=== PATIENT | male | born 1945 | race Caucasian/White ===

== ENCOUNTER 2019-05-15 13:12 | Inpatient (IN) | payer OTHER ==
[~2019-05-15] VITALS: Ht 198.1 cm; Wt 74.8 kg
[2019-05-15 13:17] VITALS: BP_SYST 185
--- NOTE | 2019-05-15 13:30 | NUR ---
Patient to ER bed 5 to gown for evaluation. Side rails up. Report given to Mehreen REAVES.
[2019-05-15] MEDS ORDERED: ONDANSETRON HCL 4 MG/2 ML VIAL IVP ONE (13:45)
--- NOTE | 2019-05-15 13:45 | NUR ---
pt arrives from home w/ c/o N/V/D x 3 days. Pt sated that he has been recovering from the flu. Pt is currently afebrile and is c/o generalized weakness. color television console monitor placed. Will continue to monitor.
--- NOTE | 2019-05-15 13:50 | NUR ---
ER at bedside examining patient.
--- NOTE | 2019-05-15 14:00 | NUR ---
# 20 gauge angiocath placed to RAC. Use of asceptic technique. Opsite placed over site. Blood return noted. Blood for lab drawn from site. Flushed with 10 cc of normal saline. No evidence of infiltration noted. Patient tolerated well.
[2019-05-15] MEDS ORDERED: PIPERACILLIN/TAZO 3.375 GM in NS 50 ML IV ONE (14:30)
[2019-05-15] MEDS ORDERED: AZITHROMYCIN 500 MG in NS 250 ML IV ONE (14:30)
[2019-05-15 14:31] LABS: EOSINOPHILS # (AUTO) 0.1 K/uL (0.0-0.4); LYMPHOCYTES # (AUTO) 0.7 K/uL (1.0-5.5); RED CELL DISTRIBUTION WIDTH 13.5 % (9.0-15.0); WHITE BLOOD COUNT (AUTO) 21.7 K/uL (4.8-10.8)
[2019-05-15 14:38] LABS: ANION GAP 10 (5-15); CALCIUM 8.6 mg/dL (8.4-11.0); CHLORIDE 101 mmol/L (98-107); CREATININE 2.34 mg/dL (0.55-1.30); GLUCOSE 323 mg/dL (70-99); POTASSIUM 3.3 mmol/L (3.5-5.1); SODIUM SERUM 134 mmol/L (136-145); UREA NITROGEN, BLOOD 44 mg/dL (8-21)
[2019-05-15 14:41] LABS: INR 1.1 (0.80-1.20); PROTHROMBIN TIME 10.7 SECS (9.5-12.5)
[2019-05-15] MEDS ORDERED: IPRATROPIUM/ALBUTEROL SULFATE 3 ML AMPUL.NEB (DUONEB) ONE (14:42)
[2019-05-15 14:44] LABS: ALANINE AMINOTRANSFERASE 52 U/L (12-78); ALBUMIN 2.8 g/dL (3.4-4.8); ASPARTATE AMINOTRANSFERASE 30 U/L (10-37); TOTAL BILIRUBIN 0.7 mg/dL (0.0-1.0)
[2019-05-15] MEDS ORDERED: IPRATROPIUM/ALBUTEROL SULFATE 3 ML AMPUL.NEB (DUONEB) INH ONE (14:45)
[2019-05-15 14:52] LABS: BASOPHILS # (AUTO) 0.1 K/uL (0.0-0.2); BASOPHILS % (AUTO) 0.4 % (0.0-2.0); EOSINOPHILS % (AUTO) 0.4 % (0.0-4.0); LYMPHOCYTES % (AUTO) 3.4 % (20.5-51.5); MEAN CORPUSCULAR HEMOGLOBIN 30 pg (27-31); MEAN CORPUSCULAR HGB CONC 34 % (32-36); MEAN CORPUSCULAR VOLUME 88 fL (79.0-98.0); MONOCYTES # (AUTO) 1.5 K/uL (0.0-1.0); MONOCYTES % (AUTO) 6.9 % (1.7-9.3); NEUTROPHILS # (AUTO) 19.3 K/uL (1.8-7.7); NEUTROPHILS % (AUTO) 88.9 % (40.0-70.0); PLATELET COUNT (AUTO) 160 K/uL (130-430); RED BLOOD CELL COUNT(AUTO) 5.34 MIL/uL (4.2-6.2)
[2019-05-15] MEDS ORDERED: ASPIRIN 81 MG TAB.CHEW PO ONE (15:00)
--- NOTE | 2019-05-15 15:00 | NUR ---
Medicated the pt w/ Zosyn and Zithromax per MD order.
[2019-05-15] MEDS ORDERED: PIPERACILLIN/TAZOBACTAM 3.375 GM/VIAL (ZOSYN) IV ONE (15:20)
[2019-05-15] MEDS ORDERED: AZITHROMYCIN 500 MG/VIAL (ZITHROMAX) IV ONE (15:21)
--- NOTE | 2019-05-15 15:29 | NUR ---
Zosyn IVPB started by RN @ 1400, completed @ 3324. Zithromax IVPB started by RN @ 1500, completed @ 4924.
--- NOTE | 2019-05-15 15:54 | NUR ---
urine sample collected and sent the lab
[2019-05-15 16:45] LABS: BILIRUBIN,URINE NEGATIVE (NEGATIVE); BLOOD, URINE 2+ (NEGATIVE); CLARITY/URINE CLEAR (CLEAR); COLOR,URINE YELLOW (YELLOW); GLUCOSE,URINE 2+ (NEGATIVE); KETONES,URINE NEGATIVE (NEGATIVE); LEUKOCYTE ESTERASE ,URINE NEGATIVE (NEGATIVE); NITRITE, URINE NEGATIVE (NEGATIVE); PROTEIN URINE 3+ (NEGATIVE); UROBILINOGEN,URINE 0.2 (0.2-1.0)
[2019-05-15] MEDS ORDERED: MULT-1165 PO (16:53)
[2019-05-15] MEDS ORDERED: LORA10TA7 PO (16:53)
[2019-05-15] MEDS ORDERED: VALS320T2 PO (16:53)
[2019-05-15] MEDS ORDERED: CYAN100T3 PO (16:53)
[2019-05-15] MEDS ORDERED: METO-442 PO (16:53)
[2019-05-15] MEDS ORDERED: vitamin d 3 (16:53)
[2019-05-15] MEDS ORDERED: DIGO250T78 PO (16:53)
[2019-05-15] MEDS ORDERED: AMLO5TAB92 PO (16:53)
[2019-05-15] MEDS ORDERED: ASPI-1155 PO (16:53)
[2019-05-15] MEDS ORDERED: INSU100V3 SQ (16:53)
[2019-05-15] MEDS ORDERED: MONT10TA22 (16:53)
[2019-05-15] MEDS ORDERED: tumeric (16:53)
[2019-05-15] MEDS ORDERED: PRED10TA PO (16:53)
--- NOTE | 2019-05-15 16:53 | NUR ---
Medication reconciliation completed with information provided by patient. Any prior medication reconciliation on file was reviewed and corrected.
[2019-05-15 16:55] LABS: BACTERIA,URINE RARE /HPF (None Seen)
[2019-05-15 16:57] LABS: MUCUS,URINE None Seen /LPF (None Seen)
[2019-05-15] MEDS ORDERED: DEXTROSE 50% JECT 50 ML DISP.SYRIN IVP PRN (17:45)
[2019-05-15] MEDS ORDERED: ALBUTEROL SULFATE 0.083% 2.5 MG/3 ML VIAL.NEB INH PRN (17:45)
[2019-05-15] MEDS ORDERED: IPRATROPIUM BROM 0.5 MG/2.5 ML VIAL.NEB (ATROVENT) INH PRN (17:45)
[2019-05-15] MEDS ORDERED: methylPREDNISolone SOD SUCC 40 MG/ML VIAL IVP ONE (18:00)
--- NOTE | 2019-05-15 18:17 | NUR ---
pt will flor admitted under the care of Dr. Camargo. Orders received.
--- NOTE | 2019-05-15 18:30 | NUR ---
Patient will be admitted to care of Dr. Alas. Admitted to tele unit. Will go to room 117-b. Belongings list completed. Complete and up to date summary report printed. SBAR report to be given at bedside with opportunity for questions.Bedside report given to Sherron REAVES. IV is on the LAC 20g patent and infusing well.
--- NOTE | 2019-05-15 18:33 | NUR ---
ADMIT NOTE Received pt from ER to the floor with a diagnosis of PNEUMONIA. Admission process initiated. patient oriented to pain management, safety and call light-teach back done.
[2019-05-15 18:45] VITALS: BP_SYST 146
--- NOTE | 2019-05-15 19:00 | NUR ---
Note Pt came to floor at 1840 via gurney to bed. Pt and his family were oriented to nursing routines and call light. Questions/concerns were answered at this time. Pt on O2 at 4L/nc. IV in left AC saline locked at this time. Pt stable. Tele unit applied on admission to the floor. Call light within reach. Pt's and son at bedside.
[2019-05-15 19:34] VITALS: BP_SYST 155
--- NOTE | 2019-05-15 19:36 | NUR ---
OPENING NOTES Received report from JELLY Delgado. Patient is resting in bed, awake, alert, oriented x 4. and son at the bedside. Patient is on 5L O2 via NC, breathing evenly and nonlabored. Patient has an IV on the left AC 20g. Vital signs taken, admission assessment done. BS checked, insulin coverage per MD order given, medication given, educated patient on medications, patient stated understanding. Patient tolerated it well. Educated patient on the call light system, patient and family stated understanding with return demonstration. No other needs at this time. Fall/safety precautions. Will continue to monitor.
[2019-05-15 20:00] VITALS: BP_SYST 155
[2019-05-15] MEDS: ALBUTEROL SULFATE 0.083% 2.5 MG/3 ML VIAL.NEB INH SCH (20:05)
[2019-05-15] MEDS: IPRATROPIUM BROM 0.5 MG/2.5 ML VIAL.NEB (ATROVENT) INH SCH (20:05)
[2019-05-15] MEDS: INSULIN REGULAR, HUMAN 100 UNITS/ML, 10 ML VIAL (humuLIN R) SUBCUT PRN (20:22)
[2019-05-15] MEDS: cefTRIAXone 1 GM in D5W 50 ML IV SCH (20:55)
--- NOTE | 2019-05-15 22:00 | NUR ---
ROUNDS Patient is resting in bed, family at the bedside. Patient was complaining of a headache and asking for Tylenol. Spoke with Dr. Nash, new order for Tylenol ordered. No other needs at this time. Fall/safety precautions.
[2019-05-15] MEDS: ACETAMINOPHEN 325 MG TABLET PO PRN (22:25)
[2019-05-16 00:06] VITALS: BP_SYST 135
--- NOTE | 2019-05-16 00:15 | NUR ---
ROUNDS Patient is resting in bed, eyes closed, at the bedside. Patient is breathing evenly and nonlabored. No other needs at this time. Fall/safety precautions.
[2019-05-16] MEDS: IPRATROPIUM BROM 0.5 MG/2.5 ML VIAL.NEB (ATROVENT) INH SCH ×4 (01:00→19:32)
[2019-05-16] MEDS: ALBUTEROL SULFATE 0.083% 2.5 MG/3 ML VIAL.NEB INH SCH ×4 (01:00→19:31)
--- NOTE | 2019-05-16 02:15 | NUR ---
ROUNDS Patient resting in bed, eyes closed, breathing easy and nonlabored, at bedside. No other needs at this time. Fall/safety precautions.
--- NOTE | 2019-05-16 04:30 | NUR ---
ROUNDS Patient is resting in bed, awake, breathing evenly and nonlabored, at bedside. Adjusted EKG leads. Patient was hungry and asked for some snacks. Provided some snacks and gave patient warm water as requested. No other needs at this time. Fall/safety precautions.
[2019-05-16] MEDS: INSULIN REGULAR, HUMAN 100 UNITS/ML, 10 ML VIAL (humuLIN R) SUBCUT PRN ×3 (05:22→17:33)
--- NOTE | 2019-05-16 06:06 | NUR ---
CONSULTATION PAGED/CALLED Reason for Consultation: PNA Person Who was Notified: kylah Consulting Physician: dr. barahona Ordering Physician: dr. fox
[2019-05-16] MEDS: ACETAMINOPHEN 325 MG TABLET PO PRN (06:33)
[2019-05-16 06:36] LABS: EOSINOPHILS % (AUTO) 0.1 % (0.0-4.0); HEMATOCRIT 43.1 % (36-54); HEMOGLOBIN 14.4 g/dL (14.0-18.0); LYMPHOCYTES # (AUTO) 0.5 K/uL (1.0-5.5); LYMPHOCYTES % (AUTO) 1.9 % (20.5-51.5); MEAN CORPUSCULAR HEMOGLOBIN 30 pg (27-31); MEAN CORPUSCULAR HGB CONC 34 % (32-36); MEAN CORPUSCULAR VOLUME 90 fL (79.0-98.0); MONOCYTES # (AUTO) 0.6 K/uL (0.0-1.0); MONOCYTES % (AUTO) 2.4 % (1.7-9.3); NEUTROPHILS # (AUTO) 24.3 K/uL (1.8-7.7); NEUTROPHILS % (AUTO) 95.6 % (40.0-70.0); PLATELET COUNT (AUTO) 146 K/uL (130-430); RED CELL DISTRIBUTION WIDTH 13.9 % (9.0-15.0); WHITE BLOOD COUNT (AUTO) 25.4 K/uL (4.8-10.8)
[2019-05-16 06:39] LABS: ALANINE AMINOTRANSFERASE 45 U/L (12-78); ALBUMIN 2.4 g/dL (3.4-4.8); ANION GAP 10 (5-15); ASPARTATE AMINOTRANSFERASE 26 U/L (10-37); CALCIUM 8.1 mg/dL (8.4-11.0); CHLORIDE 99 mmol/L (98-107); CREATININE 2.87 mg/dL (0.55-1.30); SODIUM SERUM 132 mmol/L (136-145); TOTAL BILIRUBIN 0.7 mg/dL (0.0-1.0); UREA NITROGEN, BLOOD 49 mg/dL (8-21)
--- NOTE | 2019-05-16 06:44 | NUR ---
CLOSING NOTES Patient resting in chair, awake, breathing evenly and nonlabored. is at the bedside. Patient complained of shoulder and left arm soreness, denies any chest pain, and said that "stretching makes it feel better." Patient asked for Tylenol, given medication, educated on use, side effects, reportable conditions, patient stated understanding. Patient prefers getting hot/warm water. Provided warm water for the patient. Will endorse care to morning shift RN. Fall/safety precautions.
[2019-05-16 07:20] LABS: GLUCOSE 456 mg/dL (70-99)
[2019-05-16 07:52] VITALS: BP_SYST 118
[2019-05-16] MEDS: METOPROLOL TARTRATE 50 MG TABLET PO SCH (08:43)
[2019-05-16] MEDS: DIGOXIN 0.25 MG TABLET PO SCH (08:43)
[2019-05-16] MEDS: methylPREDNISolone SOD SUCC 40 MG/ML VIAL IVP SCH ×2 (08:43→20:46)
[2019-05-16] MEDS: LORATADINE 10 MG TABLET PO SCH (08:44)
[2019-05-16] MEDS: ASPIRIN 81 MG TAB.CHEW PO SCH (08:44)
[2019-05-16] MEDS ORDERED: VALSARTAN 160 MG TABLET (DIOVAN) PO SCH (09:00)
[2019-05-16] MEDS ORDERED: LOSARTAN POTASSIUM 50 MG TABLET (COZAAR) PO SCH (09:00)
--- NOTE | 2019-05-16 09:00 | NUR ---
Pain/comfort Patient headache is better but still with mid upper back discomfort, denies any chest pain , telemetry NSR with BBB , vitals sign stable kept on Oxygen 2 l/NC oxygen saturation 94 % frequent coughing with loose pink phlegm, sitting in the chair high fowlers legs elevated to chair back supported by pillow, explained all medication indication side effect verbalized understanding; Dr. Camargo informed regarding upper back pain , EKG ordered NSR with BBB , pain medication will be given after assessment by admitting doctor, will monitor.
[2019-05-16] MEDS: amLODIPine BESYLATE 5 MG TABLET PO SCH (09:54)
--- NOTE | 2019-05-16 10:42 | NUR ---
Dr. Rodriguez informed regarding cardiac consult, face sheet given.
--- NOTE | 2019-05-16 10:44 | NUR ---
CONSULTATION; REASON FOR CONSULT: RENAL FAILURE CONSULTING PHYSICIAN: DR ARRIOLA ORDERED BY; DR SMITH SPOKE WITH TATIANA [phone]
[2019-05-16] MEDS: HYDROcodone/ACETAMIN 5-325 MG TAB (NORCO/ VICODIN) PO PRN ×2 (10:46→21:01)
[2019-05-16 11:19] VITALS: BP_SYST 132
--- NOTE | 2019-05-16 11:56 | NUR ---
Elvi Camargo for high blood sugar 484 mg/dl. Addendum: 05/16/19 at 1312 by Shanika Hall RN Dr. Camargo called back with n.o. carried out ,home insulin dose verified with patient and .
[2019-05-16] MEDS ORDERED: INSU100V3 SQ (13:09)
[2019-05-16] MEDS ORDERED: INSULIN NPH/REGULAR 70-30, 100 UNITS/ML, 10 ML VIAL SUBCUT ONE (13:30)
--- NOTE | 2019-05-16 13:32 | NUR ---
CONSULTATION: REASON FOR CONSULT: RENAL FAILURE CONSULTING PHYSICIAN: DR LÓPEZ ORDERED BY: DR SMITH SPOKE WITH GLENN [phone]
--- NOTE | 2019-05-16 13:40 | NUR ---
Education Patient resting in bed coughing is very tight but no sign of acute respiratory distress , discussed symptoms of hypoglycemia and hyperglycemia verbalized understanding able to enumerate it , know what to do instructed to call RN.
[2019-05-16] MEDS ORDERED: guaiFENesin/DEXTROMETHORPHAN 118 ML PO PRN (14:30)
[2019-05-16] MEDS ORDERED: DEXTROMETHORPHAN PO PRN ×2 (14:45→15:00)
[2019-05-16] MEDS ORDERED: GUAIFENESIN PO PRN ×2 (14:45→15:00)
[2019-05-16] MEDS: DEXTROMETHORPHAN PO PRN ×2 (15:25→19:24)
[2019-05-16] MEDS: GUAIFENESIN PO PRN ×2 (15:25→19:24)
[2019-05-16 15:40] VITALS: BP_SYST 100
--- NOTE | 2019-05-16 15:59 | NUR ---
Patient able to take a nap after cough medication was given , no sign of acute respiratory distress , denies any back pain.
[2019-05-16 16:54] LABS: BILIRUBIN,URINE NEGATIVE (NEGATIVE); BLOOD, URINE 3+ (NEGATIVE); COLOR,URINE YELLOW (YELLOW); GLUCOSE,URINE 3+ (NEGATIVE); KETONES,URINE NEGATIVE (NEGATIVE); LEUKOCYTE ESTERASE ,URINE NEGATIVE (NEGATIVE); NITRITE, URINE NEGATIVE (NEGATIVE); PH,URINE 5.5 (5.0-8.0); PROTEIN URINE 3+ (NEGATIVE); UROBILINOGEN,URINE 0.2 (0.2-1.0)
[2019-05-16] MEDS: cefTRIAXone 1 GM in D5W 50 ML IV SCH (16:56)
[2019-05-16 17:05] LABS: CLARITY/URINE HAZY (CLEAR)
[2019-05-16 17:07] LABS: BACTERIA,URINE FEW /HPF (None Seen); FINE GRANULAR CASTS,URINE 0-10 /LPF (None Seen); RBC,URINE NONE SEEN /HPF (0-3); WBC,URINE 0-3 /HPF (0-3)
[2019-05-16 17:08] LABS: MUCUS,URINE None Seen /LPF (None Seen)
[2019-05-16] MEDS: AZITHROMYCIN 500 MG in NS 250 ML IV SCH (17:31)
[2019-05-16] MEDS: INSULIN NPH/REGULAR 70-30, 100 UNITS/ML, 10 ML VIAL SUBCUT SCH (17:34)
--- NOTE | 2019-05-16 18:21 | NUR ---
Closing notes Afebrile , no SOB ,due antibiotic given with out adverse reaction, blood sugar much better , due insulin given ,served dinner, denies any back pain, needs attended.,able to ambulate with steady gait.
[2019-05-16] MEDS: BUDESONIDE 0.5 MG/2 ML AMPUL.NEB INH SCH (19:32)
--- NOTE | 2019-05-16 19:35 | NUR ---
RECEIVED REPORT FROM 7AM RN BENNIE. PATIENT AAOX4, SKIN W/D TO TOUCH, CARRILLO W/ POS. PULSES AND MARKED WEAKNESS. SKIN W/ DRY TO TOUCH. FAMILY AT BEDSIDE. PATIENT W/ MALAISE FROM PNEUMONIA. VOICES NO C/O PAIN AT PRESENT. VS DONE WNL
[2019-05-16 20:00] VITALS: BP_SYST 118
[2019-05-16] MEDS: HEPARIN SODIUM,PORCINE 5000 UNITS/ML VIAL SUBCUT SCH (20:49)
[2019-05-16 21:06] LABS: URINE SODIUM, RANDOM 9 mmol/L (40-220)
--- NOTE | 2019-05-16 23:00 | NUR ---
MED PASS, NSG ASSESSMENT, BS DONE. PT TOLERATED WELL. VOICED C/O SHOULDER PAIN / MEDICATED, MED WAS EFFECTIVE. PT ASLEEP AT PRESENT.
[2019-05-17] MEDS: ALBUTEROL SULFATE 0.083% 2.5 MG/3 ML VIAL.NEB INH SCH ×4 (01:09→19:58)
[2019-05-17] MEDS: IPRATROPIUM BROM 0.5 MG/2.5 ML VIAL.NEB (ATROVENT) INH SCH ×4 (01:09→19:58)
--- NOTE | 2019-05-17 03:30 | NUR ---
PATIENT STATES HES HAVING DIFFICULTLY SLEEPING AND FEELS VERY CONGESTED. RESP THERAPIST CALLED FOR A TREATMENT. TOLERATED WELL. STATED HE FELT BETTER. PT CONT TO HAVE A WET COUGH W/ LITTLE TO NO SPUTUM PRODUCTION.
[2019-05-17 04:15] VITALS: BP_SYST 122
[2019-05-17] MEDS: INSULIN REGULAR, HUMAN 100 UNITS/ML, 10 ML VIAL (humuLIN R) SUBCUT PRN (06:53)
[2019-05-17] MEDS: INSULIN NPH/REGULAR 70-30, 100 UNITS/ML, 10 ML VIAL SUBCUT SCH ×2 (06:54→18:11)
[2019-05-17 07:04] LABS: BASOPHILS % (AUTO) 0.1 % (0.0-2.0); HEMATOCRIT 42.3 % (36-54); LYMPHOCYTES # (AUTO) 0.6 K/uL (1.0-5.5); LYMPHOCYTES % (AUTO) 1.9 % (20.5-51.5); MEAN CORPUSCULAR HEMOGLOBIN 30 pg (27-31); MEAN CORPUSCULAR HGB CONC 33 % (32-36); MEAN CORPUSCULAR VOLUME 90 fL (79.0-98.0); MONOCYTES # (AUTO) 0.6 K/uL (0.0-1.0); MONOCYTES % (AUTO) 2.1 % (1.7-9.3); NEUTROPHILS # (AUTO) 27.7 K/uL (1.8-7.7); NEUTROPHILS % (AUTO) 95.9 % (40.0-70.0); PLATELET COUNT (AUTO) 147 K/uL (130-430); RED BLOOD CELL COUNT(AUTO) 4.71 MIL/uL (4.2-6.2); RED CELL DISTRIBUTION WIDTH 13.5 % (9.0-15.0); WHITE BLOOD COUNT (AUTO) 28.9 K/uL (4.8-10.8)
[2019-05-17 07:32] LABS: ANION GAP 9 (5-15); CALCIUM 8.3 mg/dL (8.4-11.0); CHLORIDE 98 mmol/L (98-107); CREATININE 3.02 mg/dL (0.55-1.30); GLUCOSE 163 mg/dL (70-99); PHOSPHORUS 5.1 mg/dL (2.7-4.5); POTASSIUM 3.6 mmol/L (3.5-5.1); SODIUM SERUM 130 mmol/L (136-145); UREA NITROGEN, BLOOD 66 mg/dL (8-21)
--- NOTE | 2019-05-17 07:45 | NUR ---
BS DONE - 176 MG /DL, COV PLUS 70/30 GIVEN. OOB TO CHAIR W/C/O PAIN TO REAR SHOULDERS, NORCO 1 TAB PO GIVEN FOR PAIN. REPORT AT BEDSIDE TO ONCOMING 7 AM RN.
[2019-05-17] MEDS: BUDESONIDE 0.5 MG/2 ML AMPUL.NEB INH SCH ×2 (08:00→20:14)
--- NOTE | 2019-05-17 08:09 | NUR ---
RECEIVED REPORT FROM 7AM JELLY GONSALVESL. PATIENT AAOX4, SKIN W/D TO TOUCH, CARRILLO W/ POS. PULSES AND MARKED WEAKNESS. SKIN W/ DRY TO TOUCH. FAMILY AT BEDSIDE. PATIENT W/ MALAISE FROM PNEUMONIA. VOICES NO C/O PAIN AT PRESENT. VS DONE WNL Addendum: 05/17/19 at 0814 by Two behavioral instructor DELETE TIME ENTRY ERROR
[2019-05-17] MEDS: LORATADINE 10 MG TABLET PO SCH (09:00)
[2019-05-17] MEDS: ASPIRIN 81 MG TAB.CHEW PO SCH (09:00)
[2019-05-17] MEDS: methylPREDNISolone SOD SUCC 40 MG/ML VIAL IVP SCH ×2 (10:36→21:00)
[2019-05-17] MEDS: amLODIPine BESYLATE 5 MG TABLET PO SCH (10:37)
[2019-05-17] MEDS: METOPROLOL TARTRATE 50 MG TABLET PO SCH (10:38)
[2019-05-17] MEDS: DIGOXIN 0.25 MG TABLET PO SCH (10:39)
[2019-05-17] MEDS: HEPARIN SODIUM,PORCINE 5000 UNITS/ML VIAL SUBCUT SCH ×2 (10:42→21:01)
[2019-05-17] MEDS ORDERED: BUDESONIDE 0.5 MG/2 ML AMPUL.NEB INH ONE (11:15)
[2019-05-17] MEDS ORDERED: guaiFENesin ER 600 MG TAB PO ONE (11:15)
[2019-05-17 13:00] VITALS: BP_SYST 129
[2019-05-17] MEDS ORDERED: guaiFENesin/DEXTROMETHORPHAN 10 ML UDC PO PRN (15:49)
[2019-05-17] MEDS: NACL 0.9% 1,000 ML IV SCH ×2 (16:00→22:14)
[2019-05-17 17:08] VITALS: BP_SYST 125
[2019-05-17] MEDS: cefTRIAXone 1 GM in D5W 50 ML IV SCH (17:41)
[2019-05-17] MEDS: AZITHROMYCIN 500 MG in NS 250 ML IV SCH (17:42)
--- NOTE | 2019-05-17 19:35 | NUR ---
ROUNDS PATIENT RESTING COMFORTABLY IN BED, NOT IN DISTRESS, VITALS STABLE. DENIES ANY PAIN AND DISCOMFORT AT THIS TIME. ASSESSMENT DONE AND DOCUMENTED. SEE FLOWSHEET. NEEDS ATTENDED TO. SAFETY AND FALL PRECAUTION MEASURES IN PLACED. BED IN LOW AND LOCKED POSITION. CALL LIGHT PLACED WITHIN REACH.
[2019-05-17 20:00] VITALS: BP_SYST 127
[2019-05-17] MEDS: guaiFENesin ER 600 MG TAB PO SCH (20:59)
[2019-05-17] MEDS: HYDROcodone/ACETAMIN 5-325 MG TAB (NORCO/ VICODIN) PO PRN (21:07)
--- NOTE | 2019-05-17 21:14 | NUR ---
MEDICATION DUE MEDICATIONS GIVEN SCHEDULED, TOLERATED WELL. WILL CONTINUE TO MONITOR.
[2019-05-18] VITALS: BP_SYST 125
--- NOTE | 2019-05-18 00:12 | NUR ---
PATIENT RESTING: Patient resting quietly. No acute distress noted. Vital signs within normal range.
[2019-05-18] MEDS: ALBUTEROL SULFATE 0.083% 2.5 MG/3 ML VIAL.NEB INH SCH ×4 (01:43→19:13)
[2019-05-18] MEDS: IPRATROPIUM BROM 0.5 MG/2.5 ML VIAL.NEB (ATROVENT) INH SCH ×4 (01:43→19:13)
--- NOTE | 2019-05-18 02:13 | NUR ---
ROUNDS PATIENT ASLEEP, RESPIRATIONS EVEN AND UNLABORED, NO SIGNS OF ANY PAIN AND DISCOMFORT NOTED. WILL CONTINUE TO MONITOR.
--- NOTE | 2019-05-18 04:12 | NUR ---
PATIENT RESTING: Patient resting quietly. No acute distress noted. Vital signs within normal range.
[2019-05-18] MEDS: INSULIN NPH/REGULAR 70-30, 100 UNITS/ML, 10 ML VIAL SUBCUT SCH ×2 (06:48→17:34)
--- NOTE | 2019-05-18 06:50 | NUR ---
CLOSING NOTES PATIENT AWAKE, VITALS STABLE, NO COMPLAINTS AT THIS TIME. ALL NEEDS ATTENDED TO. BLOOD SUGAR 170, REFUSED SLIDING SCALE 2 UNITS REGULAR INSULIN, ONLY WANTS THE SCHEDULED HUMULIN 70/30. CALL LIGHT PLACED WITHIN REACH.
[2019-05-18] MEDS: HYDROcodone/ACETAMIN 5-325 MG TAB (NORCO/ VICODIN) PO PRN (07:31)
[2019-05-18 07:39] LABS: HEMATOCRIT 44.5 % (36-54); HEMOGLOBIN 14.9 g/dL (14.0-18.0); MEAN CORPUSCULAR HEMOGLOBIN 30 pg (27-31); MEAN CORPUSCULAR HGB CONC 34 % (32-36); MEAN CORPUSCULAR VOLUME 90 fL (79.0-98.0); PLATELET COUNT (AUTO) 194 K/uL (130-430); RED BLOOD CELL COUNT(AUTO) 4.97 MIL/uL (4.2-6.2); RED CELL DISTRIBUTION WIDTH 13.8 % (9.0-15.0); WHITE BLOOD COUNT (AUTO) 25.3 K/uL (4.8-10.8)
[2019-05-18 08:00] VITALS: BP_SYST 155
--- NOTE | 2019-05-18 08:00 | NUR ---
A/OX4. VITALS STABLE. ON 2L O2. SR ON MONITOR. ON NS, 60ML/HR, SITE INTACT AND PATENT. INSTRUCTED SQL SERVER ARCHITECT LIGHT , WHICH IS IN PLACE. BED LOCKED AT THE LOWEST POSITION WITH ALARM ON, WILL CONTINUE TO MONITOR.
[2019-05-18 08:15] LABS: ANION GAP 10 (5-15); CALCIUM 8.9 mg/dL (8.4-11.0); CHLORIDE 98 mmol/L (98-107); CREATININE 2.67 mg/dL (0.55-1.30); GLUCOSE 204 mg/dL (70-99); POTASSIUM 4.1 mmol/L (3.5-5.1); SODIUM SERUM 132 mmol/L (136-145); UREA NITROGEN, BLOOD 71 mg/dL (8-21)
[2019-05-18] MEDS: BUDESONIDE 0.5 MG/2 ML AMPUL.NEB INH SCH ×2 (08:18→19:35)
[2019-05-18 08:30] VITALS: BP_SYST 155
[2019-05-18 08:41] LABS: ATYPICAL LYMPHOCYTES % 0 % (0-0); BAND % (MANUAL) 0 % (0-6); BASOPHILS % (MANUAL) 0 % (0-2); EOSINOPHILS % (MANUAL) 0 % (0-7); LYMPHOCYTES % (MANUAL) 0 % (20-46); MONOCYTES % (MANUAL) 2 % (0-11)
[2019-05-18] MEDS: ASPIRIN 81 MG TAB.CHEW PO SCH (08:53)
[2019-05-18] MEDS: methylPREDNISolone SOD SUCC 40 MG/ML VIAL IVP SCH ×2 (08:53→20:39)
[2019-05-18] MEDS: DIGOXIN 0.25 MG TABLET PO SCH (08:54)
[2019-05-18] MEDS: METOPROLOL TARTRATE 50 MG TABLET PO SCH (08:54)
[2019-05-18] MEDS: LORATADINE 10 MG TABLET PO SCH (08:54)
[2019-05-18] MEDS: guaiFENesin ER 600 MG TAB PO SCH ×2 (08:54→20:39)
[2019-05-18] MEDS: amLODIPine BESYLATE 5 MG TABLET PO SCH (08:55)
--- NOTE | 2019-05-18 09:00 | NUR ---
CONSULTATION PAGED REASON FOR CONSULTATION:ARF WAS CONSULT CALLED: YES PERSON WHO WAS NOTIFIED: PEDRO CONSULTING PHYSICIAN: FLAKO PARTS PROCESSOR SPECIALTY: NEPHRO PARTS PROCESSOR PHONE NUMBER:[phone] REQUESTING PHYSICIAN: CRISTOPHER SANDOVAL
[2019-05-18] MEDS: HEPARIN SODIUM,PORCINE 5000 UNITS/ML VIAL SUBCUT SCH ×2 (09:06→20:51)
--- NOTE | 2019-05-18 10:50 | NUR ---
PATIENT IS RESTING IN BED, NO SIGNS OF DISTRESS NOTED.
[2019-05-18] MEDS: INSULIN REGULAR, HUMAN 100 UNITS/ML, 10 ML VIAL (humuLIN R) SUBCUT PRN ×3 (11:48→23:52)
--- NOTE | 2019-05-18 11:57 | NUR ---
BLOOD SUGAR 301. 8 UNITS OF RI IS GIVEN PER ORDER.
[2019-05-18 12:00] VITALS: BP_SYST 147
[2019-05-18] MEDS: guaiFENesin/DEXTROMETHORPHAN 118 ML PO PRN ×2 (12:05→16:34)
--- NOTE | 2019-05-18 13:29 | NUR ---
PATIENT FINISHES LUNCH. TOLERATED WITHOUT DISTRESS.
[2019-05-18 16:00] VITALS: BP_SYST 140
--- NOTE | 2019-05-18 16:31 | NUR ---
Dietitian Recommendations *Continue CCHO, 2GM Na diet Please see Nutrition Assessment for further details. LT, RD
[2019-05-18] MEDS: cefTRIAXone 1 GM in D5W 50 ML IV SCH (16:40)
[2019-05-18] MEDS: AZITHROMYCIN 500 MG in NS 250 ML IV SCH (17:34)
--- NOTE | 2019-05-18 18:00 | NUR ---
PATIENT IS EATING DINNER. TOLERATED WITHOUT DISTRESS.
[2019-05-18 20:00] VITALS: BP_SYST 136
--- NOTE | 2019-05-18 20:00 | NUR ---
Opening notes Pt AAOx4, VSS, O2 2L via NC satting at 93%. No s/s distress noted. at bedside. IVF infusing at ordered rate L. AC 20G clear and patent. Call light within reach. Bed low, locked, siderails up x 2. To monitor.
--- NOTE | 2019-05-18 23:49 | NUR ---
Blood sugar Pt alert, awake. BS checked 162, 2 units Regular insulin administered per protocol. HS snacks provided. Call light within reach. at bedside. To monitor.
[2019-05-19] MEDS: IPRATROPIUM BROM 0.5 MG/2.5 ML VIAL.NEB (ATROVENT) INH SCH ×4 (01:17→19:47)
[2019-05-19] MEDS: ALBUTEROL SULFATE 0.083% 2.5 MG/3 ML VIAL.NEB INH SCH ×4 (01:18→19:47)
[2019-05-19] MEDS: NACL 0.9% 1,000 ML IV SCH ×2 (01:20→11:37)
[2019-05-19 01:28] VITALS: BP_SYST 159
[2019-05-19] MEDS: guaiFENesin/DEXTROMETHORPHAN 118 ML PO PRN ×3 (01:40→17:56)
--- NOTE | 2019-05-19 01:40 | NUR ---
Rounds Pt requested cough med. Robittussin 10ml given as needed. No distress noted. Call light within reach. To monitor.
--- NOTE | 2019-05-19 06:51 | NUR ---
Closing notes Pt awake, alert, no s/s distress noted. BS checked 211 scheduled insulin administered as ordered. IVF infusing at ordered rate L. AC 20G clear and patent. Call light within reach. at bedside. Safety maintained. Bed low, locked, siderails up x2. To endorse to AM nurse.
[2019-05-19] MEDS: INSULIN REGULAR, HUMAN 100 UNITS/ML, 10 ML VIAL (humuLIN R) SUBCUT PRN ×2 (06:58→23:13)
[2019-05-19] MEDS: INSULIN NPH/REGULAR 70-30, 100 UNITS/ML, 10 ML VIAL SUBCUT SCH ×2 (06:58→17:59)
[2019-05-19] MEDS: BUDESONIDE 0.5 MG/2 ML AMPUL.NEB INH SCH ×2 (07:19→19:47)
--- NOTE | 2019-05-19 07:30 | NUR ---
Opening Notes Patient received lying comfortably in bed with 02 at 2 lpm via nc, at bedside, alert, awake and verbally responsive. Denies any pain or discomfort at this time. Respiration even and unlabored. IVF infusing well. Discussed plan of care, and using of call light, patient verbalized understanding. Fall precaution observed. Call light within the reach. Will continue to monitor.
[2019-05-19] MEDS: HEPARIN SODIUM,PORCINE 5000 UNITS/ML VIAL SUBCUT SCH ×2 (08:56→21:07)
[2019-05-19] MEDS: guaiFENesin ER 600 MG TAB PO SCH ×2 (08:57→21:04)
[2019-05-19] MEDS: amLODIPine BESYLATE 5 MG TABLET PO SCH (08:58)
[2019-05-19] MEDS: ASPIRIN 81 MG TAB.CHEW PO SCH (08:59)
[2019-05-19] MEDS: LORATADINE 10 MG TABLET PO SCH (08:59)
[2019-05-19] MEDS: DIGOXIN 0.25 MG TABLET PO SCH (08:59)
[2019-05-19] MEDS: METOPROLOL TARTRATE 50 MG TABLET PO SCH (08:59)
[2019-05-19] MEDS: methylPREDNISolone SOD SUCC 40 MG/ML VIAL IVP SCH ×2 (09:00→21:04)
[2019-05-19 09:14] LABS: BASOPHILS % (AUTO) 0.1 % (0.0-2.0); HEMATOCRIT 48.4 % (36-54); LYMPHOCYTES # (AUTO) 0.5 K/uL (1.0-5.5); LYMPHOCYTES % (AUTO) 1.8 % (20.5-51.5); MEAN CORPUSCULAR HEMOGLOBIN 30 pg (27-31); MEAN CORPUSCULAR HGB CONC 33 % (32-36); MEAN CORPUSCULAR VOLUME 90 fL (79.0-98.0); MONOCYTES # (AUTO) 0.8 K/uL (0.0-1.0); MONOCYTES % (AUTO) 2.9 % (1.7-9.3); NEUTROPHILS % (AUTO) 95.2 % (40.0-70.0); PLATELET COUNT (AUTO) 234 K/uL (130-430); RED CELL DISTRIBUTION WIDTH 13.7 % (9.0-15.0)
[2019-05-19 09:25] LABS: WHITE BLOOD COUNT (AUTO) 28.4 K/uL (4.8-10.8)
[2019-05-19 09:27] LABS: ALANINE AMINOTRANSFERASE 123 U/L (12-78); ALBUMIN 2.9 g/dL (3.4-4.8); ANION GAP 10 (5-15); ASPARTATE AMINOTRANSFERASE 110 U/L (10-37); CALCIUM 8.8 mg/dL (8.4-11.0); CHLORIDE 99 mmol/L (98-107); CREATININE 2.54 mg/dL (0.55-1.30); GLUCOSE 199 mg/dL (70-99); POTASSIUM 3.8 mmol/L (3.5-5.1); SODIUM SERUM 133 mmol/L (136-145); TOTAL BILIRUBIN 0.5 mg/dL (0.0-1.0); UREA NITROGEN, BLOOD 69 mg/dL (8-21)
--- NOTE | 2019-05-19 09:30 | NUR ---
Shower Patient showered at bedside, well tolerated. Denies any pain or discomfort, no SOB.
[2019-05-19 09:50] VITALS: BP_SYST 155
--- NOTE | 2019-05-19 11:30 | NUR ---
Dr. Zavala Rounds Seen and examined by MD, will follow-up for any new orders.
[2019-05-19 12:00] VITALS: BP_SYST 162
--- NOTE | 2019-05-19 13:30 | NUR ---
RN ROUNDS Patient remain to be alert, awake and verbally responsive. Denies any pain or discomfort. On 02 at 2lpm via NC. Respiration even and unlabored. Call light within the reach.
--- NOTE | 2019-05-19 15:14 | NUR ---
Hypoglycemia at 57, Paged Patient noted with shaking, alert, awake and verbally responsive, patient refused dextrose 50% IVP and wanted to eat jello and crackers instead, refused orange juice as well due to it makes him cough. Upon re checking, BS went up to 85 and verbalized feeling better. Called and paged Dr. Camargo, awaiting for call back. Call light within the reach. Will continue to monitor.
--- NOTE | 2019-05-19 15:30 | NUR ---
Reported Hypoglycemia to Dr. Riley Received a call from Dr. Camargo, notified regarding episode of hypoglycemia, per MD no new order at this time, continue monitoring blood sugar level.
[2019-05-19 16:00] VITALS: BP_SYST 147
--- NOTE | 2019-05-19 16:38 | NUR ---
Dr. León Rounds Seen and examined by MD, will follow-up for any new orders.
[2019-05-19] MEDS: cefTRIAXone 1 GM in D5W 50 ML IV SCH (17:03)
[2019-05-19] MEDS: AZITHROMYCIN 500 MG in NS 250 ML IV SCH (17:56)
--- NOTE | 2019-05-19 18:00 | NUR ---
Blood sugar 109 Blood sugar is 109, patient refused Humulin 70/30 scheduled, per patient "that's too much, if i have that i will be shaking by 9 pm", explained risks and benefits, patient verbalized understanding. No signs of hypoglycemia at this time. Remain to be alert, awake and verbally responsive. Call light within the reach.
--- NOTE | 2019-05-19 18:47 | NUR ---
Closing Notes Patient currently lying comfortably in his bed with respiration even and unlabored, on 02 at 2lpm via NC, no SOB, no acute distress, no congestion, still noted with episodes of coughing. Alert, awake and verbally responsive. IVF infusing well. Denies any pain or discomfort at this time. No signs of hypoglycemia noted at this time. Attended to needs and anticipated. Provided rest and comfort. Fall precaution observed, bed at lowest position, at bedside. Call light within the reach. Will endorse to the next shift.
--- NOTE | 2019-05-19 19:30 | NUR ---
OPENING NOTES Patient is resting, no signs of acute respiratory distress observed, 2L nasal canula. Family at bedside. IVF running, dressing c/d/i. HOB elevated. Call light within reach, bed alarm on, and bed at lowest position. Will continue to monitor blood sugar and cough.
[2019-05-19 20:00] VITALS: BP_SYST 143
--- NOTE | 2019-05-19 20:00 | NUR ---
Spoke to family, family is concerned on rise of WBC count and was not expecting the WBC count to rise again. Explained to patient's family that antibiotics may take a week for it to work and also medications that the patient is taking may affect it as well. Family hopes for an infectious disease doctor as a consult if possible.
--- NOTE | 2019-05-19 21:20 | NUR ---
Provided patient with anabella crackers and patient refused orange juice or apple juice, as it makes him cough. No signs of coughing at this time. Patient is comfortable. Will continue to monitor.
[2019-05-20] VITALS: BP_SYST 155
[2019-05-20] MEDS: guaiFENesin/DEXTROMETHORPHAN 118 ML PO PRN ×3 (00:12→13:14)
[2019-05-20] MEDS: ALBUTEROL SULFATE 0.083% 2.5 MG/3 ML VIAL.NEB INH SCH ×4 (00:34→21:01)
[2019-05-20] MEDS: IPRATROPIUM BROM 0.5 MG/2.5 ML VIAL.NEB (ATROVENT) INH SCH ×4 (00:34→21:01)
[2019-05-20] MEDS: INSULIN REGULAR, HUMAN 100 UNITS/ML, 10 ML VIAL (humuLIN R) SUBCUT PRN ×3 (05:45→17:45)
[2019-05-20] MEDS: INSULIN NPH/REGULAR 70-30, 100 UNITS/ML, 10 ML VIAL SUBCUT SCH ×2 (05:46→17:47)
[2019-05-20] MEDS: NACL 0.9% 1,000 ML IV SCH ×2 (05:50→23:21)
[2019-05-20 06:20] LABS: BASOPHILS % (AUTO) 0.1 % (0.0-2.0); HEMATOCRIT 43.4 % (36-54); HEMOGLOBIN 14.4 g/dL (14.0-18.0); LYMPHOCYTES # (AUTO) 0.4 K/uL (1.0-5.5); LYMPHOCYTES % (AUTO) 1.8 % (20.5-51.5); MEAN CORPUSCULAR HEMOGLOBIN 30 pg (27-31); MEAN CORPUSCULAR HGB CONC 33 % (32-36); MEAN CORPUSCULAR VOLUME 90 fL (79.0-98.0); MONOCYTES # (AUTO) 0.4 K/uL (0.0-1.0); MONOCYTES % (AUTO) 1.8 % (1.7-9.3); NEUTROPHILS # (AUTO) 20.7 K/uL (1.8-7.7); NEUTROPHILS % (AUTO) 96.3 % (40.0-70.0); PLATELET COUNT (AUTO) 173 K/uL (130-430); RED BLOOD CELL COUNT(AUTO) 4.84 MIL/uL (4.2-6.2); RED CELL DISTRIBUTION WIDTH 13.8 % (9.0-15.0); WHITE BLOOD COUNT (AUTO) 21.5 K/uL (4.8-10.8)
[2019-05-20] MEDS: BUDESONIDE 0.5 MG/2 ML AMPUL.NEB INH SCH ×3 (07:00→21:05)
[2019-05-20 07:09] LABS: ANION GAP 11 (5-15); CHLORIDE 105 mmol/L (98-107); CREATININE 2.35 mg/dL (0.55-1.30); GLUCOSE 293 mg/dL (70-99); POTASSIUM 4.6 mmol/L (3.5-5.1); SODIUM SERUM 137 mmol/L (136-145); UREA NITROGEN, BLOOD 67 mg/dL (8-21)
--- NOTE | 2019-05-20 07:20 | NUR ---
Opening Notes Patient received alert, awake and verbally responsive, denies any pain or discomfort at this time. Able to verbalize needs and concerns. On 02 at 2lpm via NC, no sob, no acute distress, no congestion. IVF infusing well. Fall precaution observed. Discussed plan of care and usage of call light patient verbalized understanding. Call light within the reach.
[2019-05-20] MEDS: HEPARIN SODIUM,PORCINE 5000 UNITS/ML VIAL SUBCUT SCH ×2 (08:38→21:06)
[2019-05-20] MEDS: DIGOXIN 0.25 MG TABLET PO SCH (08:40)
[2019-05-20] MEDS: guaiFENesin ER 600 MG TAB PO SCH ×2 (08:40→21:04)
[2019-05-20] MEDS: ASPIRIN 81 MG TAB.CHEW PO SCH (08:41)
[2019-05-20] MEDS: LORATADINE 10 MG TABLET PO SCH (08:41)
[2019-05-20] MEDS: amLODIPine BESYLATE 5 MG TABLET PO SCH (08:42)
[2019-05-20] MEDS: METOPROLOL TARTRATE 50 MG TABLET PO SCH (08:43)
[2019-05-20] MEDS: methylPREDNISolone SOD SUCC 40 MG/ML VIAL IVP SCH (08:44)
--- NOTE | 2019-05-20 09:45 | NUR ---
RN ROUNDS Patient still noted with productive cough, educated on deep breathing exercises and coughing exercises, patient verbalized understanding. Remain to be alert, awake and verbally responsive. Call light within the reach.
--- NOTE | 2019-05-20 11:55 | NUR ---
Blood sugar check Blood sugar is 171, 2 units of regular insulin given as ordered, no signs of hyperglycemia noted at this time. Call light within the reach.
[2019-05-20 12:35] VITALS: BP_SYST 151
--- NOTE | 2019-05-20 13:56 | NUR ---
Dr. Zavala Rounds/notified regarding white patches to oral mucosa Seen and examined by MD, notified regarding white patches to oral mucosa. Will follow-up for any new orders.
--- NOTE | 2019-05-20 15:29 | NUR ---
RN ROUNDS at bedside, patient eyes closed, no sob, no acute distress, on 02at 2lpm via NC. IVF infusing well. Call light within easy reach.
[2019-05-20 16:38] VITALS: BP_SYST 153
--- NOTE | 2019-05-20 17:00 | NUR ---
RN ROUNDS Patient asleep at this time, no sob, no acute distress, no moaning or grimacing noted. IVF infusing well. call light within the reach.
[2019-05-20] MEDS: NYSTATIN 500,000 UNITS/5 ML UDC PO SCH ×2 (17:40→23:18)
[2019-05-20] MEDS: cefTRIAXone 1 GM in D5W 50 ML IV SCH (17:40)
[2019-05-20] MEDS: AZITHROMYCIN 500 MG in NS 250 ML IV SCH (18:45)
--- NOTE | 2019-05-20 19:25 | NUR ---
Closing Notes Patient remain to be alert, awake and verbally responsive. Denies any pain or discomfort at this time. IVF infusing well, on 02 at 2lpm via NC, no sob, no acute distress, still noted with episodes of coughing, able to expectorate phlegm. Call light within the reach. Will endorse to the next shift.
--- NOTE | 2019-05-20 19:30 | NUR ---
Opening notes Received report. Patient is resting in bed, no signs of distress noted. Breathing even and unlabored. IV patent and intact, infusing fluids. No needs at this time. VSS. Call light with the patient. Safety precautions in place. Family at bedside.
[2019-05-20 20:00] VITALS: BP_SYST 140
[2019-05-20] MEDS: HYDROcodone/ACETAMIN 5-325 MG TAB (NORCO/ VICODIN) PO PRN (21:05)
[2019-05-20] MEDS: PREDNISONE 20 MG TABLET PO SCH (21:05)
--- NOTE | 2019-05-20 21:11 | NUR ---
Medications scheduled and prn pain medications given. Educated the action and side effects of medications. Patient verbalized understanding and tolerated well. No adverse effects noted. No other needs at this time. Call light with the patient. Safety precautions in place.
--- NOTE | 2019-05-20 23:30 | NUR ---
Resting Patient sleeping. Accucheck 123. No insulin coverage necessary. Provided patient with crackers and jello, per patient request. No other needs. [place] light with the patient. Safety precautions in place.
[2019-05-21 00:09] VITALS: BP_SYST 152
[2019-05-21] MEDS: ALBUTEROL SULFATE 0.083% 2.5 MG/3 ML VIAL.NEB INH SCH ×2 (01:06→07:10)
[2019-05-21] MEDS: IPRATROPIUM BROM 0.5 MG/2.5 ML VIAL.NEB (ATROVENT) INH SCH ×2 (01:06→07:10)
--- NOTE | 2019-05-21 02:08 | NUR ---
Sleeping No signs of distress noted. Breathing even and unlabored. IVF infusing well. Call light with the patient. Safety precautions in place. family at bedside.
--- NOTE | 2019-05-21 04:00 | NUR ---
Sleeping Patient sleeping. No signs of distress noted. Breathing even and unlabored. IVF infusing well. Call light with the patient. Safety precautions in place.
[2019-05-21 06:02] LABS: ANION GAP 8 (5-15); CALCIUM 7.5 mg/dL (8.4-11.0); CHLORIDE 105 mmol/L (98-107); CREATININE 2.05 mg/dL (0.55-1.30); GLUCOSE 170 mg/dL (70-99); POTASSIUM 4.4 mmol/L (3.5-5.1); SODIUM SERUM 136 mmol/L (136-145); UREA NITROGEN, BLOOD 62 mg/dL (8-21)
[2019-05-21] MEDS: NYSTATIN 500,000 UNITS/5 ML UDC PO SCH ×2 (06:08→11:44)
[2019-05-21] MEDS: INSULIN NPH/REGULAR 70-30, 100 UNITS/ML, 10 ML VIAL SUBCUT SCH (06:16)
[2019-05-21] MEDS: INSULIN REGULAR, HUMAN 100 UNITS/ML, 10 ML VIAL (humuLIN R) SUBCUT PRN (06:17)
[2019-05-21 06:30] LABS: BASOPHILS % (AUTO) 0.2 % (0.0-2.0); HEMATOCRIT 44.8 % (36-54); HEMOGLOBIN 14.7 g/dL (14.0-18.0); LYMPHOCYTES # (AUTO) 0.4 K/uL (1.0-5.5); LYMPHOCYTES % (AUTO) 1.6 % (20.5-51.5); MEAN CORPUSCULAR HEMOGLOBIN 30 pg (27-31); MEAN CORPUSCULAR HGB CONC 33 % (32-36); MEAN CORPUSCULAR VOLUME 90 fL (79.0-98.0); MONOCYTES # (AUTO) 0.8 K/uL (0.0-1.0); MONOCYTES % (AUTO) 3.2 % (1.7-9.3); NEUTROPHILS # (AUTO) 23.7 K/uL (1.8-7.7); PLATELET COUNT (AUTO) 189 K/uL (130-430); RED BLOOD CELL COUNT(AUTO) 4.99 MIL/uL (4.2-6.2); RED CELL DISTRIBUTION WIDTH 13.4 % (9.0-15.0); WHITE BLOOD COUNT (AUTO) 24.9 K/uL (4.8-10.8)
--- NOTE | 2019-05-21 06:55 | NUR ---
Closing notes Patient is resting in bed. No signs of distress noted. Breathing even and unlabored. IV patent and intact, infusing fluids. Insulin given per sliding scale. Encouraged patient to eat breakfast, provided patient with anabella crackers for now. All needs met throughout the shift. Call light with the patient. Safety precautions in place. Will endorse care to day shift RN.
[2019-05-21] MEDS: BUDESONIDE 0.5 MG/2 ML AMPUL.NEB INH SCH (07:10)
--- NOTE | 2019-05-21 07:43 | NUR ---
Opening Note Received bedside SBAR report from hotel night auditor RN patient is up in bed eating, respirations even and unlabored on 2L nasal canula, IV infusing well, site is clean, dry and intact, bed in low and locked position with bed alarm on, family at bedside, call light in reach
[2019-05-21 08:00] VITALS: BP_SYST 149
[2019-05-21] MEDS: HEPARIN SODIUM,PORCINE 5000 UNITS/ML VIAL SUBCUT SCH (08:56)
[2019-05-21] MEDS: guaiFENesin ER 600 MG TAB PO SCH (08:56)
[2019-05-21] MEDS: PREDNISONE 20 MG TABLET PO SCH (08:57)
[2019-05-21] MEDS: LORATADINE 10 MG TABLET PO SCH (08:57)
[2019-05-21] MEDS: METOPROLOL TARTRATE 50 MG TABLET PO SCH (08:57)
[2019-05-21] MEDS: amLODIPine BESYLATE 5 MG TABLET PO SCH (08:58)
[2019-05-21] MEDS: ASPIRIN 81 MG TAB.CHEW PO SCH (08:58)
[2019-05-21] MEDS: DIGOXIN 0.25 MG TABLET PO SCH (08:58)
[2019-05-21] MEDS: guaiFENesin/DEXTROMETHORPHAN 118 ML PO PRN (10:10)
--- NOTE | 2019-05-21 10:20 | NUR ---
Physician Rounds Dr. Camargo at patients bedside examining patient and explaining plan of care to patient and patients family, patient and family verbalized understanding
[2019-05-21] MEDS ORDERED: Nystatin PO (11:26)
[2019-05-21] MEDS ORDERED: PRED20TA PO (11:26)
--- NOTE | 2019-05-21 11:40 | NUR ---
Oxygen Saturation Level Patient oxygen saturation 97% on room air, respirations even and on labored on room air, no acute distress noted
--- NOTE | 2019-05-21 12:45 | NUR ---
RN Rounds Patient sitting up in chair, respirations even and unlabored on room air, patient denies pain at this time, at bedside
[2019-05-21 12:47] VITALS: BP_SYST 143
--- NOTE | 2019-05-21 14:10 | NUR ---
Discharge Provided patient with discharge packet and instructions, patient verbalized understanding, IV catheter removed, catheter intact, no bleeding, patients son spoke with Dr. Camargo on the phone regarding increased WBC count, signs and symptoms of infection and reason patient is not being sent home on PO antibiotics, patients son verbalized understanding, patient accompanied by son and for discharge home, all belongings sent with patient, patient taken to parking lot via wheelchair
[2019-05-21 14:11] VITALS: BP_SYST 143
[2019-05-22 19:45] LABS: CREATININE, URINE 72.9 mg/dL; MICROALBUMIN URINE RANDOM 2238.6 ug/ml (NOT ESTABLISHED); MICROALBUMIN/CREAT RATIO, UR 3070.8 MG/G CRE (0.0-30.0)
== END 2019-05-21 14:10 | disposition home or self-care (01) | DRG 871 ==
LOC: SED 13:12 → STU 16:37 → SMU 05-18 10:29
PROVIDERS: ADMIT Internal Medicine Hospice and Palliative Medicine; ATTEND Internal Medicine Hospice and Palliative Medicine
DX: A41.9 Sepsis, unspecified organism (principal); J18.9 Pneumonia, unspecified organism; E43 Unspecified severe protein-calorie malnutrition; J96.01 Acute respiratory failure with hypoxia; J44.1 Chronic obstructive pulmonary disease with (acute) exacerbation; E87.1 Hypo-osmolality and hyponatremia; N17.9 Acute kidney failure, unspecified; I13.0 Hypertensive heart and chronic kidney disease with heart failure and stage 1 through stage 4 chronic kidney disease, or unspecified chronic kidney disease; J44.0 Chronic obstructive pulmonary disease with (acute) lower respiratory infection; Z68.1 Body mass index [BMI] 19.9 or less, adult; R04.2 Hemoptysis; E78.5 Hyperlipidemia, unspecified; E11.65 Type 2 diabetes mellitus with hyperglycemia; E11.22 Type 2 diabetes mellitus with diabetic chronic kidney disease; I25.10 Atherosclerotic heart disease of native coronary artery without angina pectoris; I50.9 Heart failure, unspecified; N18.9 Chronic kidney disease, unspecified; Z82.49 Family history of ischemic heart disease and other diseases of the circulatory system; Z83.3 Family history of diabetes mellitus; Z87.891 Personal history of nicotine dependence; Z95.1 Presence of aortocoronary bypass graft; Z90.49 Acquired absence of other specified parts of digestive tract
CPT/HCPCS: 36415; 36600; 71045; 71250-TC; 76770; 80048; 80053; 80162-TC; 81000-TC; 82043; 82570; 82570-TC; 82803-TC; 82962; 83036; 83605; 83735-TC; 83880; 84100-TC; 84302-TC; 84484; 84550-TC; 85007; 85025; 85027; 85610-TC; 85730-TC; 86710; 87040-TC; 87086; 93005; 93306; 94640; 94760; 96365; 96374; 96375; 99285; G0378; J0456; J0696; J1030; J1644; J1815; J2405; J2543; J7030; J7040; J7050; J7060; J7512; J7613; J7620; J7626

== ENCOUNTER 2022-11-23 18:59 | Inpatient (IN) | payer OTHER ==
[~2022-11-23] VITALS: Ht 167.6 cm; Wt 64.5 kg
[~2022-11-23 18:59] MED LIST: AMLO5TAB92 PO; ASPI-1155 PO; CYAN100T44 PO; DIGO250T PO; INSU100V3 SQ; LORA10TA7 PO; METO-442 PO; MONT-47; MULT-1165 PO; Nystatin PO; PRED10TA PO; PRED20TA PO; VALS320T2 PO; tumeric; vitamin d 3
[2022-11-23 19:09] VITALS: BP_SYST 129; PULSE 96; RESP 18; TEMP 97.9; O2SAT 95
--- NOTE | 2022-11-23 19:16 | NUR ---
Placed in room 06 . Placed on toolroom checker, blood pressure machine and pulse oximeter. To gown for exam. Side rails up. Report given to JELLY ECHAVARRIA.
--- NOTE | 2022-11-23 19:20 | NUR ---
PT WAS BIB BLS AMBULANCE FROM HOME C/O URINARY RETENTION SINCE 1030AM. PT SATTES HAS BEEN HAVING SOME DRIBBLING AND IS UNABLE TO FULLY EMPTY. PT A&OX4, NO DISTRESS NOTED.
[2022-11-23 20:17] LABS: BASOPHILS % (AUTO) 0.4 % (0.0-2.0); EOSINOPHILS % (AUTO) 0.3 % (0.0-4.0); HEMATOCRIT 36.8 % (36-54); HEMOGLOBIN 12.3 g/dL (14.0-18.0); LYMPHOCYTES # (AUTO) 0.5 K/uL (1.0-5.5); LYMPHOCYTES % (AUTO) 4.3 % (20.5-51.5); MEAN CORPUSCULAR HEMOGLOBIN 29 pg (27-31); MEAN CORPUSCULAR HGB CONC 34 % (32-36); MEAN CORPUSCULAR VOLUME 87 fL (79.0-98.0); MONOCYTES # (AUTO) 0.7 K/uL (0.0-1.0); MONOCYTES % (AUTO) 6.7 % (1.7-9.3); NEUTROPHILS # (AUTO) 9.4 K/uL (1.8-7.7); NEUTROPHILS % (AUTO) 88.3 % (40.0-70.0); PLATELET COUNT (AUTO) 179 K/uL (130-430); RED BLOOD CELL COUNT(AUTO) 4.25 MIL/uL (4.2-6.2); RED CELL DISTRIBUTION WIDTH 16.5 % (9.0-15.0); WHITE BLOOD COUNT (AUTO) 10.6 K/uL (4.8-10.8)
[2022-11-23 20:27] LABS: ALANINE AMINOTRANSFERASE 40 U/L (12-78); ALBUMIN 3.1 g/dL (3.4-4.8); ANION GAP 12 (5-15); ASPARTATE AMINOTRANSFERASE 59 U/L (10-37); CALCIUM 8.5 mg/dL (8.4-11.0); CREATININE 5.34 mg/dL (0.55-1.30); GLUCOSE 222 mg/dL (70-99); TOTAL BILIRUBIN 0.9 mg/dL (0.0-1.0)
[2022-11-23 20:29] LABS: UREA NITROGEN, BLOOD 128 mg/dL (8-21)
[2022-11-23 20:30] LABS: CHLORIDE 84 mmol/L (98-107)
--- NOTE | 2022-11-23 20:55 | NUR ---
NELSON WAS PLACED FOR PT. PATENT AND DRAINING WELL. PT TOLERATED WELL, NO TRAUMA NOTED TO SITE.
[2022-11-23 21:05] LABS: BILIRUBIN,URINE NEGATIVE (NEGATIVE); BLOOD, URINE NEGATIVE (NEGATIVE); CLARITY/URINE CLEAR (CLEAR); COLOR,URINE YELLOW (YELLOW); GLUCOSE,URINE NEGATIVE (NEGATIVE); KETONES,URINE NEGATIVE (NEGATIVE); LEUKOCYTE ESTERASE ,URINE NEGATIVE (NEGATIVE); NITRITE, URINE NEGATIVE (NEGATIVE); PH,URINE 5.5 (5.0-8.0); PROTEIN URINE 2+ (NEGATIVE); UROBILINOGEN,URINE 0.2 (0.2-1.0)
[2022-11-23 21:48] LABS: BACTERIA,URINE FEW /HPF (None Seen); RBC,URINE NONE SEEN /HPF (0-3); WBC,URINE 0-3 /HPF (0-3)
[2022-11-23 21:49] LABS: COARSE GRANULAR CASTS,URINE 0-10 /LPF (None Seen); MUCUS,URINE None Seen /LPF (None Seen); URINE AMORPHOUS URATE 1+ /HPF (None Seen)
[2022-11-23] MEDS ORDERED: FUROSEMIDE 40 MG/4 ML VIAL IVP SCH (22:30)
--- NOTE | 2022-11-23 22:34 | NUR ---
Admit bed requested Patient will be admitted to care of . Admitted to TELEMETRY unit. Diagnosis ACUTE RENAL FAILURE Inpatient (Yes or No) YES Observation (Yes or No) NE Orientation concerns or request close to nursing station (Yes or No) NO Covid Status N/A On vent or bipap NO Isolation requirements NO Needs a sitter NO From Home (Yes or if No enter name of facility) YES Requires Dialysis (Yes or No) NO Med Rec Completed (Yes of No) NO
[2022-11-23 23:30] VITALS: BP_SYST 127; PULSE 112; RESP 18; TEMP 97.6; O2SAT 96
[2022-11-24] VITALS (10 sets, daily range): BP systolic 107–135; PULSE 86–120; RESP 16–20; TEMP 95.6–98.6; O2SAT 94–100
--- NOTE | 2022-11-24 00:05 | NUR ---
Patient will be admitted to care of [facility]. Admitted to unit. Will go to room . Belongings list completed. Complete and up to date summary report printed. SBAR report to be given at bedside with opportunity for questions.
[2022-11-24] MEDS: MELATONIN 3 MG TABLET PO PRN (00:30)
[2022-11-24] MEDS ORDERED: MELATONIN 3 MG TABLET ONE (00:31)
--- NOTE | 2022-11-24 01:00 | NUR ---
COMMUNICATION W/ DR. ALINA TAVAREZ MD WAS MADE AWARE THAT PATIENT'S HR IS SUSTAINING IN 130'S WHILE CALM AND NOT MOVING. MD VERBALIZED NO NEW ORDERS.
[2022-11-24 05:15] LABS: BASOPHILS # (AUTO) 0.1 K/uL (0.0-0.2); BASOPHILS % (AUTO) 0.4 % (0.0-2.0); EOSINOPHILS # (AUTO) 0.1 K/uL (0.0-0.4); EOSINOPHILS % (AUTO) 0.8 % (0.0-4.0); HEMATOCRIT 34.7 % (36-54); HEMOGLOBIN 11.4 g/dL (14.0-18.0); LYMPHOCYTES # (AUTO) 0.5 K/uL (1.0-5.5); LYMPHOCYTES % (AUTO) 4.1 % (20.5-51.5); MEAN CORPUSCULAR HEMOGLOBIN 28 pg (27-31); MEAN CORPUSCULAR HGB CONC 33 % (32-36); MEAN CORPUSCULAR VOLUME 86 fL (79.0-98.0); MONOCYTES # (AUTO) 0.9 K/uL (0.0-1.0); MONOCYTES % (AUTO) 7.6 % (1.7-9.3); NEUTROPHILS # (AUTO) 10.7 K/uL (1.8-7.7); NEUTROPHILS % (AUTO) 87.1 % (40.0-70.0); PLATELET COUNT (AUTO) 155 K/uL (130-430); RED BLOOD CELL COUNT(AUTO) 4.02 MIL/uL (4.2-6.2); RED CELL DISTRIBUTION WIDTH 16.4 % (9.0-15.0); WHITE BLOOD COUNT (AUTO) 12.3 K/uL (4.8-10.8)
[2022-11-24 05:37] LABS: ALANINE AMINOTRANSFERASE 37 U/L (12-78); ALBUMIN 2.9 g/dL (3.4-4.8); ANION GAP 15 (5-15); ASPARTATE AMINOTRANSFERASE 52 U/L (10-37); CALCIUM 8.2 mg/dL (8.4-11.0); CREATININE 5.25 mg/dL (0.55-1.30); GLUCOSE 185 mg/dL (70-99); TOTAL BILIRUBIN 0.8 mg/dL (0.0-1.0)
[2022-11-24 05:41] LABS: CHLORIDE 85 mmol/L (98-107)
[2022-11-24 05:44] LABS: UREA NITROGEN, BLOOD 136 mg/dL (8-21)
[2022-11-24] MEDS: ONDANSETRON HCL 4 MG/2 ML VIAL IVP PRN (05:59)
[2022-11-24] MEDS: ACETAMINOPHEN 325 MG TABLET PO PRN ×3 (05:59→23:59)
--- NOTE | 2022-11-24 06:49 | NUR ---
CLOSING NOTE Pt laying in bed with eyes closed. No s/s of respiratory distress, breathing even and unlabored. No complaints of pain at this time. Marroquin catheter patent with good drainage. Heart Rate has episode of elevating to 130s, Dr. Barragan aware. All needs met throughout shift. Fall and safety precaution in place. Bed at lowest position, bed alarm on, and call light within reach.
--- NOTE | 2022-11-24 08:05 | NUR ---
CONSULTATION PAGED/CALLED Reason for Consultation: [] RENAL FAILURE Person Who was Notified: [] LEFT A VOICE MESSAGE ON DR ENRIQUE'S CP Consulting Physician: [] DR MELISSA ENRIQUE Jig Bore Operator Specialty: [] UROLOGIST Ordering Physician: [] DR FULLER
--- NOTE | 2022-11-24 09:30 | NUR ---
pt's son camila was updated with pt status . his phone gianer is [phone].
--- NOTE | 2022-11-24 10:43 | NUR ---
CALLED AGAIN THE UROLOGY CONSULT TO DR MELISSA ENRIQUE. SPOKE TO
[2022-11-24] MEDS ORDERED: NYSTATIN 500000 UNIT PO SCH (12:00)
[2022-11-24] MEDS ORDERED: NON-FORMULARY MEDICATION (Cyanocobalamin (Vitamin B-12) 100 MCG) PO SCH (12:00)
[2022-11-24] MEDS ORDERED: LIDOCAINE 1%, 20 ML MDV 20 ML ONE (12:06)
[2022-11-24] MEDS ORDERED: IPRATROPIUM/ALBUTEROL SULFATE 3 ML AMPUL.NEB (DUONEB) INH PRN (12:30)
--- NOTE | 2022-11-24 14:04 | NUR ---
Wound Evaluation: Wound Consult ordered Dr. Barragan. Thank you Dr. Barragan, for the consult. Patient was awake, alert, oriented, and received in a Mitzy Bed with an Isoflex ALEXANDRE mattress. Patient requires assist to turn in bed. Past medical history: COPD, Renal Failure, Congestive Heart Failure, severe Cardiomyopathy, s/p CABG in 1995, Essential Hypertension, Dyslipidemia, Diabetes Mellitus, Coronary Artery Disease, severe Vasculopathy, s/p trauma of the foot. Recent labs: WBC 12.3, RBC 4.02, hemoglobin 11.4, hematocrit 34.7, sodium 121, chloride 85, BUN 136, creatinine 5.25, glucose 185, calcium 8.2, AST 52, alkaline phosphatase 180.8, serum total protein 6.3, albumin 2.9. No microbiology reports. Intrinsic factors that delay wound healing: COPD, Renal Failure, Congestive Heart Failure, severe Cardiomyopathy, Diabetes Mellitus, Coronary Artery Disease, severe Vasculopathy. Skin assessment: 1. Right Lower Extremity/Howard: Cellulitis, present on admission. Extremity has 3+ pitting edema, erythema, calor, and small to moderate serous weeping. Foot is cool to touch. Large area present with small multiple non-intact skin areas along with closed blisters. Site measures 10.0 cm x 6.5 cm Recommend: Cleanse site with normal saline. Gently pat dry. Cover open areas, closed blisters and weeping areas with oil emulsion dressings, then cover with alginate dressings. Secure with ABD pad and Maicol wrap (wrap from just above toes to just below knee with 50% overlap). Perform site care daily, and as needed for dressing soiling or dislodgment. Elevate lower extremities above heart as tolerated. Encourage 30 bilateral ankle pumps every hour while awake. 2. Right Mid Lateral Calf: Dark discolored skin area present on distal howard. No odor, no drainage. Area is not soft or boggy. Site measures 2.0 cm x 3.0 cm. 3. Right Proximal Lateral Calf: Dark discolored skin area present on distal howard. No odor, no drainage. Area is not soft or boggy. Site measures 0.8 cm x 1.0 cm. 4. Right lateral calf, posterior and right lateral to site 3: Dark discolored skin area present on distal howard. No odor, no drainage. Area is not soft or boggy. Site measures 1.0 cm x 2.5 cm. Recommend: No dressings needed. Continue to monitor sites every shift. 5. Left Lower Extremity: Cellulitis, present on admission. Extremity has 4+ pitting edema, erythema, calor, and scant to small serous weeping. No visible wound. Foot is cool to touch. Recommend: Cleanse site with normal saline. Gently pat dry. Cover any open areas, closed blister areas, or weeping areas with oil emulsion dressings, then cover with alginate dressings. Secure with ABD pad and Maicol wrap (wrap from just above toes to just below knee with 50% overlap). Perform site care daily, and as needed for dressing soiling or dislodgment. Elevate lower extremities above heart as tolerated. Encourage 30 bilateral ankle pumps every hour while awake. Also recommend: Encourage and assist patient as needed with reposition every 2 hours with pillow support. Elevate, off-load and float bilateral lower extremities above heart as tolerated. Offload pressure areas with pillows for pressure re-distribution. Perform skin care and monitor skin integrity Q shift.
[2022-11-24] MEDS ORDERED: HEPARIN SODIUM,PORCINE 5,000 UNITS/ML VIAL MC ONE (15:00)
[2022-11-24] MEDS: PIPERACILLIN/TAZO 2.25G/DEX-IS 50 ML IV SCH ×2 (15:16→22:17)
[2022-11-24] MEDS ORDERED: CEPH250C PO (17:18)
[2022-11-24] MEDS ORDERED: MONT5TAB PO (17:18)
[2022-11-24] MEDS ORDERED: ASPI-1393 PO (17:18)
[2022-11-24] MEDS ORDERED: LORA1POW6 MC (17:18)
[2022-11-24] MEDS ORDERED: HYDR-4039 PO (17:18)
[2022-11-24] MEDS ORDERED: METO2.5T6 PO (17:18)
[2022-11-24] MEDS ORDERED: LIP80 PO (17:18)
[2022-11-24] MEDS ORDERED: BUDE0.5A4 IH (17:18)
[2022-11-24] MEDS ORDERED: TOPXL100 PO (17:18)
[2022-11-24] MEDS ORDERED: ALBMDI INH (17:18)
[2022-11-24] MEDS ORDERED: ATRMDI INH (17:18)
[2022-11-24] MEDS ORDERED: NITSL SL (17:18)
[2022-11-24] MEDS ORDERED: [UNRECOGNIZED DRUG - CODE] NS (17:18)
[2022-11-24] MEDS ORDERED: POTA-178 PO (17:18)
[2022-11-24] MEDS ORDERED: FURO-149 PO (17:18)
[2022-11-24] MEDS ORDERED: MIRT-91 PO (17:18)
[2022-11-24] MEDS ORDERED: INSU200I SQ ×2 (17:18)
[2022-11-24] MEDS ORDERED: CYAN100010 PO (17:18)
[2022-11-24] MEDS ORDERED: INSULIN Lispro 100 UNITS/ML, 3 ML VIAL (humaLOG) SQ SCH (18:00)
[2022-11-24] MEDS ORDERED: NITROGLYCERIN 0.4 MG TAB.SUBL SL PRN (18:00)
[2022-11-24] MEDS: IPRATROPIUM/ALBUTEROL SULFATE 3 ML AMPUL.NEB (DUONEB) INH SCH (19:30)
--- NOTE | 2022-11-24 19:45 | NUR ---
pt's family at bedside. son camila at bedside. he was updated again re pt's status and poc. told pt's dtr and son that i already talked the squaring machine operator and the night nurse to change soiled beddings. pt had hd with 1.5 liter output. pt tolerated well. pt c/o of pain on the right ij and was given tylenol. told night rn to call md if pt needs stronger pain med.
--- NOTE | 2022-11-24 20:00 | NUR ---
Pt laying in bed with eyes closed. No s/s of respiratory distress, breathing even and unlabored. No complaints of pain at this time. Understands that tylenol will help relieve any discomfort from the IJ site. Marroquin catheter patent with good drainage. pt bp 107/75 is low according to family, with HR fluctuations. pt agreed to have possible future updates to be given to darlene Louis. HD done today 2L output. Fall and safety precaution in place. Bed at lowest position, bed alarm on, and call light within reach.
[2022-11-24] MEDS: ATORVASTATIN 20 MG TABLET PO SCH (22:18)
[2022-11-24] MEDS: METOPROLOL TARTRATE 50 MG TABLET PO SCH (22:18)
[2022-11-24] MEDS: INSULIN Lispro 100 UNITS/ML, 3 ML VIAL (humaLOG) SQ SCH (22:20)
[2022-11-25] VITALS (9 sets, daily range): BP systolic 92–116; PULSE 80–140; RESP 18; TEMP 96.8–98.1; O2SAT 94–100
--- NOTE | 2022-11-25 | NUR ---
pt having 3/10 pain on IJ site. has tylenol for pain. Pt mentions that it is sufficient for the pain.
[2022-11-25] MEDS: IPRATROPIUM/ALBUTEROL SULFATE 3 ML AMPUL.NEB (DUONEB) INH SCH ×4 (01:14→20:28)
--- NOTE | 2022-11-25 03:30 | NUR ---
SBAR Report received from patric wilder
[2022-11-25] MEDS: MELATONIN 3 MG TABLET PO PRN ×2 (03:49→20:58)
[2022-11-25] MEDS: ACETAMINOPHEN 325 MG TABLET PO PRN (03:49)
--- NOTE | 2022-11-25 04:19 | NUR ---
TYLENOL 650 MG po given for general pain & helpful / comfort measures tolerated .
[2022-11-25 06:28] LABS: BASOPHILS # (AUTO) 0.1 K/uL (0.0-0.2); BASOPHILS % (AUTO) 0.8 % (0.0-2.0); EOSINOPHILS # (AUTO) 0.2 K/uL (0.0-0.4); HEMATOCRIT 32.7 % (36-54); HEMOGLOBIN 11.1 g/dL (14.0-18.0); LYMPHOCYTES # (AUTO) 0.5 K/uL (1.0-5.5); LYMPHOCYTES % (AUTO) 4.4 % (20.5-51.5); MEAN CORPUSCULAR HEMOGLOBIN 29 pg (27-31); MEAN CORPUSCULAR HGB CONC 34 % (32-36); MEAN CORPUSCULAR VOLUME 86 fL (79.0-98.0); MONOCYTES # (AUTO) 1.1 K/uL (0.0-1.0); MONOCYTES % (AUTO) 10.4 % (1.7-9.3); NEUTROPHILS # (AUTO) 8.4 K/uL (1.8-7.7); NEUTROPHILS % (AUTO) 82.4 % (40.0-70.0); PLATELET COUNT (AUTO) 120 K/uL (130-430); WHITE BLOOD COUNT (AUTO) 10.3 K/uL (4.8-10.8)
[2022-11-25] MEDS: PIPERACILLIN/TAZO 2.25G/DEX-IS 50 ML IV SCH ×3 (06:51→21:00)
[2022-11-25 07:22] LABS: ANION GAP 13 (5-15); CALCIUM 8.1 mg/dL (8.4-11.0); CHLORIDE 89 mmol/L (98-107); CREATININE 4.73 mg/dL (0.55-1.30); GLUCOSE 117 mg/dL (70-99)
[2022-11-25 08:00] LABS: UREA NITROGEN, BLOOD 103 mg/dL (8-21)
--- NOTE | 2022-11-25 08:00 | NUR ---
OPENING NOTE; PT RESTING IN BED, BREATHING NON-LABORED ON 2L O2 VIA NC. IV SITE REMAIN INTACT AND PATENT. NELSON DRAINING BY GRAVITY. NO KINK OR BLOCKAGE NOTED. BED IS LOCKED AND AT LOW POSITION. SAFETY PRECAUTION IN PLACE. ENCOURAGED PT TO USE CALL LIGHT FOR ASSISTANCE. WILL CONT TO MONITOR FOR ANY CHANGES
--- NOTE | 2022-11-25 08:20 | NUR ---
paged Dr. Fernández
[2022-11-25] MEDS ORDERED: LORATADINE 10 MG TABLET PO SCH (09:00)
[2022-11-25] MEDS ORDERED: MULTIVITS,CA,MINERALS/IRON/FA 1 TABLET PO SCH (09:00)
[2022-11-25] MEDS: hydrALAZINE HCL 25 MG TABLET PO SCH (09:00)
[2022-11-25] MEDS ORDERED: VALSARTAN Non-Formulary 160 MG TABLET PO SCH (09:00)
[2022-11-25] MEDS ORDERED: amLODIPine BESYLATE 5 MG TABLET PO SCH (09:00)
[2022-11-25] MEDS: METOPROLOL TARTRATE 50 MG TABLET PO SCH ×2 (09:00→19:49)
[2022-11-25] MEDS ORDERED: DIGOXIN 0.25 MG TABLET PO SCH (09:00)
[2022-11-25] MEDS: ASPIRIN 81 MG TAB.CHEW PO SCH (09:18)
[2022-11-25] MEDS: metOLazone 2.5 MG TABLET PO SCH (09:18)
[2022-11-25] MEDS: MONTELUKAST 10 MG TABLET PO SCH (09:18)
[2022-11-25] MEDS: INSULIN Lispro 100 UNITS/ML, 3 ML VIAL (humaLOG) SQ SCH ×2 (09:38→20:50)
--- NOTE | 2022-11-25 09:38 | NUR ---
NOTES; OKAY TO GIVE HUMALOG 22 UNITS ORDERED PER . BS: 123
--- NOTE | 2022-11-25 10:15 | NUR ---
ROUNDS; AT BEDSIDE, ASSESSING PT. SPOKE WITH SON(WILBERT)
--- NOTE | 2022-11-25 10:30 | NUR ---
COLLECTED WOUND CULTURE FROM [facility] PER DR. PINEDA.
--- NOTE | 2022-11-25 12:10 | NUR ---
NOTES; REPOSITIONED PT PER PT'S REQUEST. PT TOLERATED WELL.
--- NOTE | 2022-11-25 14:25 | NUR ---
NOTES; PROVIDED PERICARE, PT TOLERATED WELL
--- NOTE | 2022-11-25 16:58 | NUR ---
NOTES; PT RESTING IN BED, DENIES ANY ACUTE DISTRESS OR SOB NOTED. ENCOURAGED PT TO USE CALL LIGHT FOR ASSISTANCE
--- NOTE | 2022-11-25 17:44 | NUR ---
Dietitian Recommendations * 2 gm Na diet, FR 1000 ml/day * Encourage good PO intakes * Consider additional CCHO dietary restriction if BG increase and/or PO intakes improve * Consider POC BG monitoring d/t Hx of DM LP, MS, RD Please refer to Nutrition Assessment for details. Addendum: 11/25/22 at [address] Amended: Links added.
--- NOTE | 2022-11-25 18:38 | NUR ---
CLOSING NOTE; PT RESTING IN BED, BREATHING NON-LABORED ON 2L O2 VIA NC. FAMILY MEMBERS AT BEDSIDE. IV SITE REMAIN INTACT AND PATENT. NELSON DRAINING BY GRAVITY. NO KINK OR BLOCKAGE NOTED. BED IS LOCKED AND AT LOW POSITION. SAFETY PRECAUTION IN PLACE. ENCOURAGED PT TO USE CALL LIGHT FOR ASSISTANCE. WILL ENDORSE CARE TO GROUP COUNSELOR NURSE.
[2022-11-25] MEDS: ATORVASTATIN 20 MG TABLET PO SCH (20:49)
[2022-11-25] MEDS ORDERED: DILTIAZEM HCL 30 MG TABLET PO ONE (21:45)
--- NOTE | 2022-11-26 00:47 | NUR ---
PATIENT RESTING: Patient resting quietly. No acute distress noted. Vital signs within normal range., telemetry atrial fibrillation HR 108 irregular
[2022-11-26] MEDS: IPRATROPIUM/ALBUTEROL SULFATE 3 ML AMPUL.NEB (DUONEB) INH SCH ×4 (01:00→19:56)
[2022-11-26 01:07] VITALS: BP_SYST 123; PULSE 117; RESP 18; TEMP 97.3; O2SAT 96
[2022-11-26] MEDS: ACETAMINOPHEN 325 MG TABLET PO PRN (03:28)
[2022-11-26] MEDS: PIPERACILLIN/TAZO 2.25G/DEX-IS 50 ML IV SCH ×3 (05:00→21:39)
--- NOTE | 2022-11-26 05:31 | NUR ---
CONSULTATION PAGED/CALLED Reason for Consultation: UNCON. AFIB Person Who was Notified: DR.Y FAIR VIA TEXT Consulting Physician: DR.Y FAIR Travel Writer Specialty: CARDIO Ordering Physician: DR.A FAIR
[2022-11-26 06:07] LABS: BASOPHILS # (AUTO) 0.1 K/uL (0.0-0.2); BASOPHILS % (AUTO) 0.9 % (0.0-2.0); EOSINOPHILS # (AUTO) 0.2 K/uL (0.0-0.4); EOSINOPHILS % (AUTO) 1.9 % (0.0-4.0); HEMATOCRIT 32.6 % (36-54); HEMOGLOBIN 10.7 g/dL (14.0-18.0); LYMPHOCYTES # (AUTO) 0.4 K/uL (1.0-5.5); LYMPHOCYTES % (AUTO) 3.3 % (20.5-51.5); MEAN CORPUSCULAR HEMOGLOBIN 29 pg (27-31); MEAN CORPUSCULAR HGB CONC 33 % (32-36); MEAN CORPUSCULAR VOLUME 87 fL (79.0-98.0); MONOCYTES % (AUTO) 8.8 % (1.7-9.3); NEUTROPHILS # (AUTO) 9.7 K/uL (1.8-7.7); NEUTROPHILS % (AUTO) 85.1 % (40.0-70.0); PLATELET COUNT (AUTO) 133 K/uL (130-430); RED BLOOD CELL COUNT(AUTO) 3.73 MIL/uL (4.2-6.2); RED CELL DISTRIBUTION WIDTH 16.9 % (9.0-15.0); WHITE BLOOD COUNT (AUTO) 11.5 K/uL (4.8-10.8)
[2022-11-26 06:30] LABS: ERYTHROCYTE SEDIMENTATION RATE 10 MM/HR (0-15)
[2022-11-26 07:23] VITALS: O2SAT 96; O2SAT 98
[2022-11-26 07:41] LABS: ANION GAP 13 (5-15); C-REACTIVE PROTEIN QUANT 4.4 mg/dL (0-0.5); CALCIUM 8.2 mg/dL (8.4-11.0); CHLORIDE 89 mmol/L (98-107); CREATININE 4.99 mg/dL (0.55-1.30); GLUCOSE 146 mg/dL (70-99)
[2022-11-26 08:00] VITALS: BP_SYST 111; PULSE 98; RESP 14; TEMP 98.6; O2SAT 98
[2022-11-26 08:15] LABS: PHOSPHORUS 5.8 mg/dL (2.7-4.5)
[2022-11-26 08:20] LABS: UREA NITROGEN, BLOOD 106 mg/dL (8-21)
[2022-11-26] MEDS: ASPIRIN 81 MG TAB.CHEW PO SCH (08:29)
[2022-11-26] MEDS: metOLazone 2.5 MG TABLET PO SCH (08:30)
[2022-11-26] MEDS: MONTELUKAST 10 MG TABLET PO SCH (08:31)
[2022-11-26] MEDS: METOPROLOL TARTRATE 50 MG TABLET PO SCH ×2 (08:32→20:45)
[2022-11-26] MEDS: hydrALAZINE HCL 25 MG TABLET PO SCH (08:33)
[2022-11-26] MEDS: INSULIN Lispro 100 UNITS/ML, 3 ML VIAL (humaLOG) SQ SCH ×2 (08:40→21:00)
--- NOTE | 2022-11-26 10:05 | NUR ---
WOUND CARE; PROVIDED WOUND CARE, SEE MST SHIFT ASSESSMENT. PT TOLERATED WELL
--- NOTE | 2022-11-26 11:10 | NUR ---
DIALYSIS STARTED; DIALYSIS NURSE AT BEDSIDE, PREPPING DIALYSIS. HANDED OUT COPY OF ORDER AND LABS.
[2022-11-26 11:43] VITALS: BP_SYST 109; PULSE 75; RESP 19; TEMP 98.4; O2SAT 95
[2022-11-26] MEDS ORDERED: HEPARIN SODIUM,PORCINE 5,000 UNITS/ML VIAL MC PRN (13:15)
[2022-11-26] MEDS ORDERED: HEPARIN SODIUM,PORCINE 5,000 UNITS/ML VIAL ONE (13:15)
--- NOTE | 2022-11-26 14:00 | NUR ---
DIALYSIS DONE.2L OUT Addendum: 11/26/22 at 1759 by Lexy Dao RN *2.5L
[2022-11-26] MEDS ORDERED: APIXABAN 2.5 MG TABLET PO ONE (14:15)
--- NOTE | 2022-11-26 14:30 | NUR ---
NOTES; PT STARTED ON ELIQUIS. GIVEN ELIQUIS ORDERED. PT TOLERATED WELL.
[2022-11-26 15:06] LABS: INR 1.2 (0.80-1.20); PROTHROMBIN TIME 12.2 SECS (9.5-12.5)
[2022-11-26 16:00] VITALS: BP_SYST 113; PULSE 97; RESP 14; TEMP 97.8; O2SAT 99
--- NOTE | 2022-11-26 16:00 | NUR ---
NOTES; PT REFUSED TO BE REPOSITIONED PT VERBALIZED THAT HE FEELS GOOD IT IS. WILL REPOSITION PT LATER
--- NOTE | 2022-11-26 17:50 | NUR ---
NOTES; REPOSITIONED PT, PT TOLERATED WELL. PROVIDED ICE CHIPS PER PT'S REQUEST
--- NOTE | 2022-11-26 18:31 | NUR ---
SON(WILBERT) WANTS TO SPEAK WITH TIA ARMSTRONG. PLEASE HAVE HIM CALL DAY SHIFT NURSE.
--- NOTE | 2022-11-26 18:57 | NUR ---
CLOSING NOTE; PT RESTING IN BED, BREATHING NON-LABORED ON 2L O2 VIA NC. IV SITE REMAIN INTACT AND PATENT. NELSON DRAINING BY GRAVITY. NO KINK OR BLOCKAGE NOTED. BED IS LOCKED AND AT LOW POSITION. SAFETY PRECAUTION IN PLACE. ENCOURAGED PT TO USE CALL LIGHT FOR ASSISTANCE. WILL ENDORSE CARE TO YARN POLISHING MACHINE OPERATOR NURSE.
[2022-11-26 19:57] VITALS: O2SAT 96
[2022-11-26] MEDS: ATORVASTATIN 20 MG TABLET PO SCH (20:45)
[2022-11-26] MEDS: APIXABAN 2.5 MG TABLET PO SCH (20:47)
[2022-11-26] MEDS ORDERED: MELATONIN 3 MG TABLET ONE (21:36)
[2022-11-27] VITALS (11 sets, daily range): BP systolic 120–130; PULSE 105–120; RESP 16–18; TEMP 96.5–98; O2SAT 96–99
[2022-11-27] MEDS: IPRATROPIUM/ALBUTEROL SULFATE 3 ML AMPUL.NEB (DUONEB) INH SCH ×4 (01:00→21:29)
[2022-11-27] MEDS: ONDANSETRON HCL 4 MG/2 ML VIAL IVP PRN (03:17)
[2022-11-27 06:05] LABS: ANION GAP 10 (5-15); CALCIUM 8.2 mg/dL (8.4-11.0); CHLORIDE 92 mmol/L (98-107); CREATININE 3.96 mg/dL (0.55-1.30); GLUCOSE 123 mg/dL (70-99); UREA NITROGEN, BLOOD 79 mg/dL (8-21)
[2022-11-27 06:21] LABS: BASOPHILS # (AUTO) 0.1 K/uL (0.0-0.2); BASOPHILS % (AUTO) 0.8 % (0.0-2.0); EOSINOPHILS # (AUTO) 0.2 K/uL (0.0-0.4); EOSINOPHILS % (AUTO) 1.5 % (0.0-4.0); HEMATOCRIT 32.3 % (36-54); HEMOGLOBIN 10.8 g/dL (14.0-18.0); LYMPHOCYTES # (AUTO) 0.5 K/uL (1.0-5.5); LYMPHOCYTES % (AUTO) 5.1 % (20.5-51.5); MEAN CORPUSCULAR HEMOGLOBIN 29 pg (27-31); MEAN CORPUSCULAR HGB CONC 33 % (32-36); MEAN CORPUSCULAR VOLUME 87 fL (79.0-98.0); MONOCYTES # (AUTO) 0.9 K/uL (0.0-1.0); MONOCYTES % (AUTO) 8.7 % (1.7-9.3); NEUTROPHILS # (AUTO) 8.6 K/uL (1.8-7.7); NEUTROPHILS % (AUTO) 83.9 % (40.0-70.0); PLATELET COUNT (AUTO) 103 K/uL (130-430); RED BLOOD CELL COUNT(AUTO) 3.71 MIL/uL (4.2-6.2); RED CELL DISTRIBUTION WIDTH 17.2 % (9.0-15.0); WHITE BLOOD COUNT (AUTO) 10.3 K/uL (4.8-10.8)
[2022-11-27 06:23] LABS: ALANINE AMINOTRANSFERASE 31 U/L (12-78); ALBUMIN 2.6 g/dL (3.4-4.8); ASPARTATE AMINOTRANSFERASE 38 U/L (10-37); C-REACTIVE PROTEIN QUANT 5.1 mg/dL (0-0.5); PHOSPHORUS 4.4 mg/dL (2.7-4.5); TOTAL BILIRUBIN 0.9 mg/dL (0.0-1.0)
[2022-11-27] MEDS: PIPERACILLIN/TAZO 2.25G/DEX-IS 50 ML IV SCH ×3 (06:41→22:00)
[2022-11-27 07:01] LABS: ERYTHROCYTE SEDIMENTATION RATE 12 MM/HR (0-15)
[2022-11-27] MEDS: MONTELUKAST 10 MG TABLET PO SCH (08:37)
[2022-11-27] MEDS: metOLazone 2.5 MG TABLET PO SCH (08:37)
[2022-11-27] MEDS: ASPIRIN 81 MG TAB.CHEW PO SCH (08:37)
[2022-11-27] MEDS: hydrALAZINE HCL 25 MG TABLET PO SCH (08:38)
[2022-11-27] MEDS: METOPROLOL TARTRATE 50 MG TABLET PO SCH ×2 (08:39→21:00)
[2022-11-27] MEDS: APIXABAN 2.5 MG TABLET PO SCH ×2 (08:40→21:00)
[2022-11-27] MEDS: INSULIN Lispro 100 UNITS/ML, 3 ML VIAL (humaLOG) SQ SCH ×2 (08:43→21:00)
--- NOTE | 2022-11-27 16:14 | NUR ---
per hd meño townsend, pt becoming tachycardic up the 130s, she said she informed md and md gave hd order to her. will continue to monitor pt. at this time. pt's hr on the monitor is 106-116.
[2022-11-27] MEDS ORDERED: HEPARIN SODIUM,PORCINE 5,000 UNITS/ML VIAL MC ONE (16:15)
--- NOTE | 2022-11-27 20:00 | NUR ---
OPENING NOTE PT IN BED WITH MULTIPLE FAMILY MEMBER AT BEDSIDE. PT AOX4 WITH FULL UNDERSTANDING OF REASON FOR ADMISSION. PT ABLE TO VERBALIZE NEEDS AND CONCERNS. PT HAS DECREASE APPETITE AND GLUCERNA WILL BE ADDED SUPPLEMENT. ALL SAFETY MEASURES IN PLACE. WILL; CONTINUE TO MONITOR
[2022-11-27] MEDS: ATORVASTATIN 20 MG TABLET PO SCH (21:00)
[2022-11-28] VITALS (14 sets, daily range): BP systolic 102–123; PULSE 110–133; RESP 16–19; TEMP 97.3–98.3; O2SAT 96–100
[2022-11-28] MEDS: IPRATROPIUM/ALBUTEROL SULFATE 3 ML AMPUL.NEB (DUONEB) INH SCH ×4 (01:39→19:41)
[2022-11-28] MEDS: PIPERACILLIN/TAZO 2.25G/DEX-IS 50 ML IV SCH (05:03)
[2022-11-28 05:15] LABS: BASOPHILS # (AUTO) 0.1 K/uL (0.0-0.2); BASOPHILS % (AUTO) 0.9 % (0.0-2.0); EOSINOPHILS # (AUTO) 0.2 K/uL (0.0-0.4); EOSINOPHILS % (AUTO) 1.7 % (0.0-4.0); HEMATOCRIT 30.9 % (36-54); HEMOGLOBIN 10.4 g/dL (14.0-18.0); LYMPHOCYTES # (AUTO) 0.6 K/uL (1.0-5.5); LYMPHOCYTES % (AUTO) 5.3 % (20.5-51.5); MEAN CORPUSCULAR HEMOGLOBIN 29 pg (27-31); MEAN CORPUSCULAR HGB CONC 34 % (32-36); MEAN CORPUSCULAR VOLUME 87 fL (79.0-98.0); MONOCYTES # (AUTO) 1.2 K/uL (0.0-1.0); MONOCYTES % (AUTO) 10.7 % (1.7-9.3); NEUTROPHILS # (AUTO) 8.8 K/uL (1.8-7.7); RED BLOOD CELL COUNT(AUTO) 3.56 MIL/uL (4.2-6.2); RED CELL DISTRIBUTION WIDTH 16.9 % (9.0-15.0); WHITE BLOOD COUNT (AUTO) 10.8 K/uL (4.8-10.8)
[2022-11-28 05:29] LABS: ANION GAP 10 (5-15); CALCIUM 8.3 mg/dL (8.4-11.0); CHLORIDE 92 mmol/L (98-107); GLUCOSE 54 mg/dL (70-99); UREA NITROGEN, BLOOD 95 mg/dL (8-21)
--- NOTE | 2022-11-28 05:30 | NUR ---
BS BS WAS 67. PT GIVEN APPLE JUICE WITH PACKETS OF SUGAR
--- NOTE | 2022-11-28 06:30 | NUR ---
BS RETAKE BS INCREASED TO 85
[2022-11-28 06:45] LABS: PLATELET COUNT (AUTO) 94 K/uL (130-430)
--- NOTE | 2022-11-28 06:45 | NUR ---
PAGED TO INFORM THAT BS WAS 67 AND IS CURRENTLY 85
--- NOTE | 2022-11-28 07:00 | NUR ---
NOTED THAT PT HAS DRIED BLOOD ON HIS LOWER LIP, PT STATED HE HAS A NOSE BLEED LAST NIGHT.
[2022-11-28 07:47] LABS: NEUTROPHILS % (AUTO) 81.4 % (40.0-70.0)
--- NOTE | 2022-11-28 08:06 | NUR ---
PATIENT NOTED TO HAVE BLEEDING FROM HIS NOSE. PT STATED IT STARTED EARLIER. WILL INFORM MD.
--- NOTE | 2022-11-28 08:15 | NUR ---
WAS HERE AND MADE AWARE OF THE NOSE BLEED. SAID TO HOLD ELIQUIS AND MONITOR PATIENT. Addendum: 11/28/22 at 0833 by Mark Ahn RN CORRECTION: DR MCCAULEY WAS HERE....
[2022-11-28] MEDS: INSULIN Lispro 100 UNITS/ML, 3 ML VIAL (humaLOG) SQ SCH ×2 (09:00→21:00)
[2022-11-28] MEDS: ASPIRIN 81 MG TAB.CHEW PO SCH (09:00)
[2022-11-28] MEDS: METOPROLOL TARTRATE 50 MG TABLET PO SCH ×2 (09:00→20:29)
[2022-11-28] MEDS: APIXABAN 2.5 MG TABLET PO SCH (09:00)
--- NOTE | 2022-11-28 09:12 | NUR ---
DR FULLER CALLED BACK AND MADE AWARE OF PT'S NOSE BLEED. NEW ORDERS GIVEN.
[2022-11-28] MEDS ORDERED: NS 250 ML IV ONE (09:15)
--- NOTE | 2022-11-28 09:15 | NUR ---
PT'[id number]/70 HR 131.
--- NOTE | 2022-11-28 09:59 | NUR ---
LEAD GENERATOR VIKTORIYA PLACE GAUZE PACKING ON PT'S LEFT NARETO STOP BLEEDING. LABTECTDRAWING H/H AND PT/PTT. AT THIS TIME..
--- NOTE | 2022-11-28 10:01 | NUR ---
CURRENT BP IS 104/68, HR 135.
--- NOTE | 2022-11-28 10:20 | NUR ---
DR Siri FAIR AT BEDSIDE.MD MADE AWARE OF NOSE BLEED, THE VITALS. MD ORDERED TO RUN THE NS 250ML BOLUS AT 250CC PER HOUR.
[2022-11-28 10:36] LABS: INR 1.3 (0.80-1.20); PROTHROMBIN TIME 13.6 SECS (9.5-12.5)
[2022-11-28 10:41] LABS: HEMATOCRIT 34.1 % (36-54); HEMOGLOBIN 11.1 g/dL (14.0-18.0)
--- NOTE | 2022-11-28 10:55 | NUR ---
pt's dtr and spouse at bedside. they were made aware of the bleeding from the nose. at this time bleeding from left nare stopped ( since 1030 am), bpis 106/68 hr 134. ns running at 250 cc/hr per dr patt barrios.
--- NOTE | 2022-11-28 11:14 | NUR ---
250 CC OF NS INFUSION COMPLETED,BP IS 103/71 HR 133. O2 SAT IS 95% ON 2 LI .
[2022-11-28] MEDS ORDERED: AMIODARONE HCL 200 MG TABLET PO SCH (11:15)
[2022-11-28] MEDS: MONTELUKAST 10 MG TABLET PO SCH (11:27)
[2022-11-28] MEDS ORDERED: AMIODARONE HCL 200 MG TABLET PO ONE (11:30)
[2022-11-28] MEDS: METHYLPREDNISOLONE SOD SUCC 40 MG/ML VIAL IVP SCH ×2 (14:11→21:06)
[2022-11-28] MEDS: MEROPENEM 500 MG in NS 50 ML IV SCH ×2 (14:11→21:07)
[2022-11-28] MEDS: AZITHROMYCIN 250 MG in NS 250 ML IV SCH (15:10)
--- NOTE | 2022-11-28 17:30 | NUR ---
pt started having nose bleed again. when bs was checked , took a long to to stop bleeding from the fingerstick
--- NOTE | 2022-11-28 17:30 | NUR ---
PT STARTED BLEEDING AGAIN FROM R. NARE. COOLING MEASURE GIVEN AND GAUZE PLACED TO CONTROL BLEEDING.
--- NOTE | 2022-11-28 18:05 | NUR ---
ST EVALUATION COMPLETED. ST TX NOT INDICATED AT THIS TIME. PT HAS LIMITED APPETITE, CONGESTION, AND FATIGUES EASILY. RECOMMEND PO DIET OF PUREE/THIN LIQUIDS
--- NOTE | 2022-11-28 18:30 | NUR ---
CEMENT GRINDING MILL OPERATOR WAS CALLED TO ASSIST WITH PT'S CONDITION.
--- NOTE | 2022-11-28 19:35 | NUR ---
RAPID RESPONSE was called at 1915 due to uncontrolled bleeding since 1729 in the right nare. ER Dr Muhammad placed a rhino rocket. Bleeding now controlled. Pt was placed on 10L simple mask. BP stable. Afebrile. Family at bedside. Paging Dr Barragan
--- NOTE | 2022-11-28 19:36 | NUR ---
[facility]AP[facility] RESPONSE WAS CALLED BECAUSE OF UNCONTROLLED NOSEBLEED. Yasmeen CAO PLACED A RHINO ROCKET. PT WAS ENDORSED TO NIGHT NURSE.
--- NOTE | 2022-11-28 19:37 | NUR ---
PAGED DR FULLER
[2022-11-28] MEDS: ACETAMINOPHEN 325 MG TABLET PO PRN (19:44)
--- NOTE | 2022-11-28 20:10 | NUR ---
BLEEDING Pt noted to have mild bleeding to the left nare. Bleeding controlled. Still waiting for callback from Dr Barragan
--- NOTE | 2022-11-28 20:18 | NUR ---
2ND PAGE FOR DR FULLER
[2022-11-28] MEDS: AMIODARONE HCL 200 MG TABLET PO SCH (20:28)
--- NOTE | 2022-11-28 21:25 | NUR ---
SPOKE W/ DR ALINA CAO paged back, informed of rapid response and family concerns. New orders received.
[2022-11-28] MEDS ORDERED: DIPHENHYDRAMINE INJ 50 MG/ML VIAL IVP ONE (21:45)
[2022-11-28 22:30] LABS: HEMATOCRIT 31.9 % (36-54); HEMOGLOBIN 10.6 g/dL (14.0-18.0)
[2022-11-28 22:41] LABS: INR 1.9 (0.80-1.20)
[2022-11-28 22:47] LABS: PROTHROMBIN TIME 19.6 SECS (9.5-12.5)
--- NOTE | 2022-11-28 23:25 | NUR ---
Dietitian Recommendations * Continue Pureed Na2gm Diet per MD Rx * Recommend Nepro BID * Encourage good PO intakes * Consider additional CCHO/renal dietary restriction if PO intakes improve and/or renal/glucose labs do not improve Please refer to RD F/U 11/28/22 for details. ETIENNE, RODDYN
--- NOTE | 2022-11-28 23:25 | NUR ---
Admitting Diagnosis ARF Reviewed Pertinent Medical/Surgical Hx Medical Record Medical History Comment: Per EMR review, 77 YOM w/ PMH of CAD, COPD, DM, and HTN. Pt presented to the ER for inability to urinate since 0900 on the morning of admission. Pt also had c/p mild lower abd distention. Pt has a past Sx Hx of CABG and gastric bypass Sx. 11/28 Per progress note, patient having difficulty tolerating HD due to afib, appears fatigued, patient family is requesting placement at [facility]. CKD 5 now on End-stage renal disease nbeeding dialysis, severe cardiomyopathy congestive heart failure progressively getting worse. Subjective Information Per previous RD note, notification received d/t unintentional wt loss in the last 3 mo (23-33#), eaten poorly >1 week because of decreased appetite COATINGS INSPECTOR, N/V >3 days COATINGS INSPECTOR, and unhealed wound. , daughter, and [id number] stated pt has not been eating well for the past 1-2 weeks. reported pt is a very picky eater. Family brought chicken congee, which pt enjoys. RD educated family and pt on importance of maintaining a 1 L/day FR per physician order. NFKA reported. Use of MVI, VIT B12, fish oil, turmeric, and cumin COATINGS INSPECTOR. RD offered [place] supplement and provided sample kit RD provided verbal nutrition education on topics of low-sodium diet and FR. 11/28/22: RD deferred patient bedside visit due to limited time. Spoke with assisting RN who stated patient PO intake remains low, however, she witnessed patient drinking Glucerna and applesauce; she also reported BGs were stable today within 100s, increased slightly d/t current medications. Per CRISIS CLINICIAN eval, recommend PO diet of puree/thin liquids. Current Diet Order/Nutrition Support Pureed, 2 gm Na; diet ordered today (11/28/22), will begin tomorrow morning Patient/Significant Other Able To Verbalize Education Provided Indicated, provided 11/25 Pertinent Medications Abx, Solu-medrol, insulin, lipitor, lopressor, zofran, melatonin, lasix Pertinent Labs (11/28/22) Na 130 L, BUN 95 H, CRE 4.50 H, BG 54 H, BNP 3680H Height (Feet) 5 feet Height (Inches) 6.00 inches Weight (Pounds) 150 pounds Patient Weight 68.039 kg Body Mass Index 24.21 kg/m2 Usual Weight 170 lbs %UBW 88 %IBW 106 [place]/Adjusted Body Weight 142#/65 kg Recent Weight Change Yes - 20# wt loss/12% wt change within 1-2 mo per family report Weight Status Appropriate Food Allergies No Usual Diet At Home Regular COATINGS INSPECTOR per nursing nutritional screening Skin Integrity Comment: Devendra score: 12 (decreased) Wounds: L/R leg w/ weeping edema; R arm ecchymosis noted Edema: 2+ pitting edema to BLE noted Current % PO 29% average x6 meal records Estimated Energy Expenditure (kcals/day) 4424-6489 (30-32 kcal/kg IBW 65 kg d/t dialysis & GERIAT maintenance) Estimated Protein Required (g/day) 65-97 (1.0-1.5 gm/kg IBW 65 kg d/t on dialysis, GERIAT status) Estimated Fluid Required (l/day) Per physician d/t ESRD Problem/Etiology/Signs/Symptoms *Altered nutrition-related labs R/T endocrine and renal dysfunction AEB abnormal BG/BUN/CRE lab values. *Inadequate nutrient intakes R/T lack of preference for hospital foods AEB poor PO intake records. *Impaired chewing/swallowing r/t motor causes AEB fatigues easily during meals and requiring texture modification per CRISIS CLINICIAN eval. *Increased nutrient needs r/t increased demand for nutrients AEB on dialysis Expected Outcomes/Goals - Monitor appetite and PO intakes w/ goal of pt meeting >75% of estimated nutritional needs, labs trending WNL, normal GI function, and skin integrity/wt maintenance Dietitian Recommendations * Continue Pureed Na2gm Diet per MD Rx * Recommend Nepro BID * Encourage good PO intakes * Consider additional CCHO/renal dietary restriction if PO intakes improve and/or renal/glucose labs do not improve Follow Up High Risk: F/U in 2-3days RM, RDN
[2022-11-29] VITALS (18 sets, daily range): BP systolic 88–161; PULSE 75–112; RESP 16–20; TEMP 97–98.8; O2SAT 90–100
[2022-11-29] MEDS: IPRATROPIUM/ALBUTEROL SULFATE 3 ML AMPUL.NEB (DUONEB) INH SCH ×4 (01:32→19:00)
--- NOTE | 2022-11-29 04:15 | NUR ---
MD FULLER NOTIFIED MD Fuller notified of hematuria in monae, PT 19.6, and INR 1.9. ordered 1 unit of fresh frozen plasma.
--- NOTE | 2022-11-29 04:27 | NUR ---
FFP CONSENT Received consent from son, Heriberto Lomax, with stone fabricator for 1 unit of fresh frozen plasma. Provided updates.
[2022-11-29] MEDS: INSULIN REGULAR, HUMAN 100 UNITS/ML, 3 ML VIAL (humuLIN R) SUBCUT PRN ×3 (06:27→22:09)
[2022-11-29] MEDS: METHYLPREDNISOLONE SOD SUCC 40 MG/ML VIAL IVP SCH ×3 (06:28→22:01)
[2022-11-29] MEDS: MEROPENEM 500 MG in NS 50 ML IV SCH ×3 (06:28→22:13)
[2022-11-29] MEDS: ACETAMINOPHEN 325 MG TABLET PO PRN ×2 (06:55→15:11)
--- NOTE | 2022-11-29 07:09 | NUR ---
CLOSING NOTE Pt is awake lying in bed. No s/s of respiratory distress. Breathing even and unlabored on 2L nasal cannula, saturating 93-94%. Right nare rhino rocket in place. Pt to have dialysis today. Fresh frozen plasma still pending. All needs met throughout shift. Fall and safety precautions in place with bed in lowest position, bed alarm on and call light within reach
--- NOTE | 2022-11-29 08:00 | NUR ---
increased 02 via nc to 3L with saturation 89% now up to 94% "rhino rocket" in place right nares. no bleeding from either nares at this time. denies nausea, denies pain, denies tenderness to abd with palpation. abd distended but soft. hypoactive bowel sounds. states last BM "maybe 5 days ago." encouraged to reposition but declined at this time. states he wants to rest on back. iv appears intact. FFP to be given oni
[2022-11-29] MEDS: INSULIN Lispro 100 UNITS/ML, 3 ML VIAL (humaLOG) SQ SCH ×2 (08:32→22:07)
[2022-11-29] MEDS: AMIODARONE HCL 200 MG TABLET PO SCH ×2 (08:33→22:01)
[2022-11-29] MEDS: ASPIRIN 81 MG TAB.CHEW PO SCH (08:33)
[2022-11-29] MEDS: MONTELUKAST 10 MG TABLET PO SCH (08:33)
[2022-11-29] MEDS: METOPROLOL TARTRATE 50 MG TABLET PO SCH ×2 (08:34→21:00)
--- NOTE | 2022-11-29 08:56 | NUR ---
Joseph held at this time. ASA per orders. waiting for MD clarification due to bleeding and lab results.
[2022-11-29] MEDS ORDERED: APIXABAN 2.5 MG TABLET PO SCH (09:00)
--- NOTE | 2022-11-29 10:00 | NUR ---
clarified with Dr Brandon Manzano; okay to hold eliquis for now due to bleeding.
--- NOTE | 2022-11-29 14:00 | NUR ---
repositioned frequently (more often than q2 hours) due to lower back pain. declined tylenol at this time. family at bedside. meds per orders. iv intact.
--- NOTE | 2022-11-29 15:26 | NUR ---
pt coughed up large dark red/black old blood clot which had been obstructing left nostril. states he sucked it back into throat and coughed it up. left nostril now clear, no bleeding. breathing well. asked Dr Brandon Manzano about right nares "Rhino rocket" but states just leave it for now.
--- NOTE | 2022-11-29 16:00 | NUR ---
vitals stable, checked frequently. pt alert, oriented. family at bedside. repositioned again. iv intact with antibiotic per orders. call light in reach
[2022-11-29] MEDS: AZITHROMYCIN 250 MG in NS 250 ML IV SCH (16:08)
--- NOTE | 2022-11-29 16:41 | NUR ---
PHYSICAL THERAPY CO-SIGN The Physical Therapy Progress Notes documented by Wharf Operator have been reviewed. Reviewed/Co-Signed by: Donnell Becker Documentation Done by:MEENA CABAN Addendum: 11/29/22 at 1641 by Donnell Becker PT Amended: Links added.
--- NOTE | 2022-11-29 17:13 | NUR ---
entered room after hearing pt's daughter from [facility] stating "are you ok dad? are you okay?" assessed pt and found him to be lethargic. opened eyes to light stimuli but glossy and unfocused. attached vitals machine to find saturation 95% on 3L via nc which is placed in mouth due to obstructed nares. HR 105, unable to get BP using machine. attempted x2. pt responding verbally but lethargic. family states "he is just tired" explained that I think there is something else going on
[2022-11-29] MEDS ORDERED: dilTIAZem HCL IVP 5 MG/ML VIAL IVP PRN (17:15)
--- NOTE | 2022-11-29 17:16 | NUR ---
called Rapid Response
--- NOTE | 2022-11-29 17:18 | NUR ---
NRB placed on
--- NOTE | 2022-11-29 17:20 | NUR ---
RR arrived. report given. pads placed on.
--- NOTE | 2022-11-29 17:25 | NUR ---
RT bagging pt
--- NOTE | 2022-11-29 17:30 | NUR ---
intubated by Dr Kinney successfully without complication iv intact. preparing to transfer to ICU
--- NOTE | 2022-11-29 17:30 | NUR ---
RT NOTE: 1730 Patient was intubated by Dr Kinney with size 7.5 ETT, secured at 22cm teeth line. Successful in one attempt. Color change noted on etCO2. Breath sounds were heard bilaterally. Observed bilateral chest rise and fall. Transferred to ICU 3 after intubation. 1735 Pt placed on vent on charted settings. Will draw ABG after 30 mins. Addendum: 11/29/22 at 1757 by Zara Mathews RT Amended: Links added.
--- NOTE | 2022-11-29 17:37 | NUR ---
transferred to ICU room 3. report given to Damian REAVES
--- NOTE | 2022-11-29 17:40 | NUR ---
RN NOTES TRANSFER FROM [facility] POST DYE WORKER / POST INTUBATION. ET TO VENT - AC16, VT 450, FIO2 100%, PEEP 5 SCOPE SHOWS SINUS RHYTHM, VITAL SIGN CHECKED AND RECORDED. NGT INSERTED, POST INTUBATION CXR TAKEN. PATIENT MADE COMFORTABLE.
[2022-11-29] MEDS ORDERED: NOREPINEPHRINE 4 MG/4 ML VIAL IV ONE ×2 (17:59→20:19)
[2022-11-29] MEDS ORDERED: ROCURONIUM BROMIDE 10 MG/ML (ZEMURON) ONE (18:00)
[2022-11-29] MEDS ORDERED: ETOMIDATE 20 MG/ 10 ML VIAL (AMIDATE) ONE (18:00)
[2022-11-29] MEDS ORDERED: NOREPINEPHRINE BITARTRATE 4 MG in NS 246 ML IV PRN (18:00)
--- NOTE | 2022-11-29 18:00 | NUR ---
RN NOTES DR. FAIR CALLED FOR ORDERS.
[2022-11-29] MEDS ORDERED: NACL 0.9% 1,000 ML IV SCH (18:15)
--- NOTE | 2022-11-29 18:15 | NUR ---
RN NOTES BP 68/46. IVF NORMAL SALINE STARTED AT 100ML/HR LEVOPHED DRIP AT 0.5 MCG/KG/MIN
--- NOTE | 2022-11-29 18:20 | NUR ---
RN NOTES VITAL SIGNS MONITORED CLOSELY. DIALSIS RN AT BEDSIDE. BS CHECKED - 283 MG/DL
--- NOTE | 2022-11-29 18:45 | NUR ---
RN NOTES REPEAT BP -140/94
--- NOTE | 2022-11-29 19:00 | NUR ---
RN NOTES STILL WAITING FOR PULMO TO CALL BACK FOR THE ABG RESULTS. REPORT GIVEN TO JELLY VELA
--- NOTE | 2022-11-29 20:20 | NUR ---
RT NOTES RESPIRATORY RATE CHANGED TO [address] GUERRERO. JELYL MATTHEWS AWARE.
[2022-11-29] MEDS ORDERED: SODIUM BICARBONATE 8.4% JECT 50 MEQ/50 ML SYRINGE IVP ONE (20:30)
[2022-11-29] MEDS ORDERED: HEPARIN SODIUM,PORCINE 5,000 UNITS/ML VIAL MC ONE (20:45)
[2022-11-29] MEDS ORDERED: HEPARIN SODIUM, PORCINE 10,000 UNITS/ 10 ML VIAL MC ONE (20:45)
[2022-11-29] MEDS: NOREPINEPHRINE BITARTRATE 16 MG in NS 234 ML IV PRN (20:50)
[2022-11-29] MEDS ORDERED: NACL 0.9% 1,000 ML IV ONE (21:30)
[2022-11-29] MEDS: DOCUSATE SODIUM 100 MG CAPSULE PO SCH (21:59)
[2022-11-29] MEDS: SODIUM BICARBONATE 8.4% JECT 150 MEQ in D5W 1,000 ML IVP SCH (22:00)
[2022-11-29] MEDS: MIDAZOLAM IN NACL,ISO-OSMOT/PF 100 ML IV PRN (22:31)
[2022-11-30] VITALS (48 sets, daily range): BP systolic 98–136; PULSE 70–87; RESP 17–25; TEMP 97.4–98; O2SAT 90–100
[2022-11-30] MEDS: FENTANYL CITRATE-0.9 % NACL/PF 100 ML IV PRN (00:30)
--- NOTE | 2022-11-30 01:34 | NUR ---
MD Called Gustavo Clark regarding blood coming out from the ET tube when suctioning, orally, and OGT via intermittent suction. No new order given.
[2022-11-30] MEDS: IPRATROPIUM/ALBUTEROL SULFATE 3 ML AMPUL.NEB (DUONEB) INH SCH ×4 (01:35→19:15)
[2022-11-30 02:06] LABS: HEPATITIS A AB, IgM Negative (Negative); HEPATITIS B CORE AB, IgM Negative (Negative); HEPATITIS B SURFACE AG Negative (Negative)
[2022-11-30] MEDS: METHYLPREDNISOLONE SOD SUCC 40 MG/ML VIAL IVP SCH ×3 (06:02→23:16)
[2022-11-30] MEDS: NOREPINEPHRINE BITARTRATE 16 MG in NS 234 ML IV PRN (06:04)
[2022-11-30] MEDS: MEROPENEM 500 MG in NS 50 ML IV SCH ×3 (06:04→22:04)
[2022-11-30] MEDS: INSULIN REGULAR, HUMAN 100 UNITS/ML, 3 ML VIAL (humuLIN R) SUBCUT PRN ×2 (06:19→23:16)
[2022-11-30 06:33] LABS: BASOPHILS % (AUTO) 0.1 % (0.0-2.0); HEMATOCRIT 24.7 % (36-54); HEMOGLOBIN 8.4 g/dL (14.0-18.0); LYMPHOCYTES # (AUTO) 0.3 K/uL (1.0-5.5); LYMPHOCYTES % (AUTO) 2.2 % (20.5-51.5); MEAN CORPUSCULAR HEMOGLOBIN 29 pg (27-31); MEAN CORPUSCULAR HGB CONC 34 % (32-36); MEAN CORPUSCULAR VOLUME 87 fL (79.0-98.0); MONOCYTES # (AUTO) 1.1 K/uL (0.0-1.0); MONOCYTES % (AUTO) 7.7 % (1.7-9.3); NEUTROPHILS # (AUTO) 12.4 K/uL (1.8-7.7); PLATELET COUNT (AUTO) 108 K/uL (130-430); RED BLOOD CELL COUNT(AUTO) 2.85 MIL/uL (4.2-6.2); RED CELL DISTRIBUTION WIDTH 17.2 % (9.0-15.0); WHITE BLOOD COUNT (AUTO) 13.8 K/uL (4.8-10.8)
[2022-11-30 07:06] LABS: ANION GAP 11 (5-15); CALCIUM 7.4 mg/dL (8.4-11.0); CHLORIDE 94 mmol/L (98-107); CREATININE 4.44 mg/dL (0.55-1.30); GLUCOSE 235 mg/dL (74-106); PHOSPHORUS 5.4 mg/dL (2.7-4.5)
--- NOTE | 2022-11-30 07:40 | NUR ---
RT NOTES Dr Velia talavera aware of bloody secretions from ETT. Ordered ABG, is aware that pt was just given HHN tx. @0718 FIO2 to 0.40 per titration order. Leah Harding aware
[2022-11-30 07:47] LABS: UREA NITROGEN, BLOOD 100 mg/dL (8-21)
[2022-11-30] MEDS: METOPROLOL TARTRATE 50 MG TABLET PO SCH ×2 (08:34→21:00)
[2022-11-30] MEDS: MONTELUKAST 10 MG TABLET PO SCH (08:34)
[2022-11-30] MEDS: AMIODARONE HCL 200 MG TABLET PO SCH ×2 (08:35→22:03)
[2022-11-30] MEDS: DOCUSATE SODIUM 100 MG CAPSULE PO SCH ×2 (08:36→22:03)
[2022-11-30] MEDS: POLYETHYLENE GLYCOL 3350, 17 GM/ POWD.PACK PO SCH (08:36)
[2022-11-30] MEDS: INSULIN Lispro 100 UNITS/ML, 3 ML VIAL (humaLOG) SQ SCH ×3 (08:38→23:15)
[2022-11-30 09:20] LABS: ERYTHROCYTE SEDIMENTATION RATE 6 MM/HR (0-15)
--- NOTE | 2022-11-30 11:18 | NUR ---
RT NOTES FIO2 to 0.30 per titration order. RN aware. @9396 Sat 93-94%
[2022-11-30] MEDS: SODIUM BICARBONATE 8.4% JECT 150 MEQ in D5W 1,000 ML IVP SCH (12:57)
[2022-11-30] MEDS ORDERED: VECURONIUM BROMIDE 10 MG/VIAL (NORCURON) IVP ONE (13:13)
[2022-11-30] MEDS ORDERED: ETOMIDATE 20 MG/ 10 ML VIAL (AMIDATE) IVP ONE (13:13)
[2022-11-30] MEDS: AZITHROMYCIN 250 MG in NS 250 ML IV SCH (16:08)
[2022-11-30] MEDS ORDERED: DESMOPRESSIN ACETATE 4 MCG/ML AMP IV ONE (20:00)
[2022-11-30] MEDS ORDERED: DESMOPRESSIN ACETATE 0.02 MG in NS 50 ML IV ONE (21:00)
[2022-12-01] VITALS (33 sets, daily range): BP systolic 80–129; PULSE 74–89; RESP 8–20; TEMP 96.8–97.8; O2SAT 89–98
[2022-12-01] MEDS: IPRATROPIUM/ALBUTEROL SULFATE 3 ML AMPUL.NEB (DUONEB) INH SCH ×4 (01:15→20:02)
[2022-12-01 06:07] LABS: INR 1.6 (0.80-1.20); PROTHROMBIN TIME 16.5 SECS (9.5-12.5)
[2022-12-01] MEDS ORDERED: METHYLPREDNISOLONE SOD SUCC 40 MG/ML VIAL ONE (06:13)
[2022-12-01 06:29] LABS: ALANINE AMINOTRANSFERASE 381 U/L (12-78); ANION GAP 11 (5-15); ASPARTATE AMINOTRANSFERASE 458 U/L (10-37); CALCIUM 7.4 mg/dL (8.4-11.0); CHLORIDE 91 mmol/L (98-107); CREATININE 4.98 mg/dL (0.55-1.30); GLUCOSE 216 mg/dL (74-106); PHOSPHORUS 6.4 mg/dL (2.7-4.5)
[2022-12-01] MEDS: SODIUM BICARBONATE 8.4% JECT 150 MEQ in D5W 1,000 ML IVP SCH ×2 (06:33→21:41)
[2022-12-01] MEDS: MEROPENEM 500 MG in NS 50 ML IV SCH ×3 (06:34→21:46)
[2022-12-01] MEDS: METHYLPREDNISOLONE SOD SUCC 40 MG/ML VIAL IVP SCH ×3 (06:34→21:47)
[2022-12-01 06:45] LABS: ERYTHROCYTE SEDIMENTATION RATE < 1 MM/HR (0-15)
[2022-12-01 07:04] LABS: UREA NITROGEN, BLOOD 113 mg/dL (8-21)
[2022-12-01 07:23] LABS: BASOPHILS % (AUTO) 0.2 % (0.0-2.0); LYMPHOCYTES # (AUTO) 0.2 K/uL (1.0-5.5); LYMPHOCYTES % (AUTO) 1.9 % (20.5-51.5); MEAN CORPUSCULAR HEMOGLOBIN 29 pg (27-31); MEAN CORPUSCULAR HGB CONC 34 % (32-36); MEAN CORPUSCULAR VOLUME 87 fL (79.0-98.0); MONOCYTES # (AUTO) 0.7 K/uL (0.0-1.0); MONOCYTES % (AUTO) 5.5 % (1.7-9.3); NEUTROPHILS # (AUTO) 11.2 K/uL (1.8-7.7); NEUTROPHILS % (AUTO) 92.4 % (40.0-70.0); PLATELET COUNT (AUTO) 81 K/uL (130-430); RED BLOOD CELL COUNT(AUTO) 2.33 MIL/uL (4.2-6.2); RED CELL DISTRIBUTION WIDTH 17.3 % (9.0-15.0); WHITE BLOOD COUNT (AUTO) 12.1 K/uL (4.8-10.8)
[2022-12-01 07:57] LABS: HEMATOCRIT 20.1 % (36-54); HEMOGLOBIN 6.8 g/dL (14.0-18.0)
--- NOTE | 2022-12-01 08:30 | NUR ---
MARIA A NOTES: SPOKE WITH MILAN REQUESTING ORDERS FROM DR. Gustavo FAIR REGARDING CRITICAL LABS.
[2022-12-01] MEDS: METOPROLOL TARTRATE 50 MG TABLET PO SCH ×2 (09:00→21:44)
--- NOTE | 2022-12-01 09:13 | NUR ---
MT NOTES: SPOKE WITH SEPTEMBER FOLLOWING UP WITH CALL REQUESTING ORDERS FROM DR. Gustavo FAIR REGARDING CRITICAL LABS.
[2022-12-01] MEDS: AMIODARONE HCL 200 MG TABLET PO SCH ×2 (09:20→21:42)
[2022-12-01] MEDS: POLYETHYLENE GLYCOL 3350, 17 GM/ POWD.PACK PO SCH (09:21)
[2022-12-01] MEDS: DOCUSATE SODIUM 100 MG CAPSULE PO SCH ×2 (09:21→21:43)
[2022-12-01] MEDS: MONTELUKAST 10 MG TABLET PO SCH (09:22)
--- NOTE | 2022-12-01 10:13 | NUR ---
MARIA A NOTES: SPOKE WITH BO REGARDING NEW CONSULTATION ORDERED BY DR. Gustavo FAIR, FOR DR. COHEN. REASON FOR THE CONSULTATION BEING TRANSAMINITIS. WAS NOTIFIED THAT DR. RAMON WILL BE COVERING AND WILL BE NOTIFIED ABOUT THE CONSULTATION.
[2022-12-01] MEDS: INSULIN Lispro 100 UNITS/ML, 3 ML VIAL (humaLOG) SQ SCH (10:15)
--- NOTE | 2022-12-01 11:24 | NUR ---
[facility] ALERT NOTE: Called Dr. VARGHESE back at identified within the medical roster to verify physician authenticity. Regarding order for heparin 5,000 Units to each hemodialysis port. Total of 10,000 Units
[2022-12-01] MEDS ORDERED: PANTOPRAZOLE SODIUM 40 MG/VIAL (PROTONIX) IVP ONE (11:30)
[2022-12-01] MEDS: INSULIN REGULAR, HUMAN 100 UNITS/ML, 3 ML VIAL (humuLIN R) SUBCUT PRN ×2 (12:54→17:37)
--- NOTE | 2022-12-01 13:00 | NUR ---
Nutrition F/U Admitting Diagnosis ARF Reviewed Pertinent Medical/Surgical Hx Medical Record Medical History Comment: Per EMR review, 77 YOM w/ PMH of CAD, COPD, DM, and HTN. Pt presented to the ER for inability to urinate since 0900 on the morning of admission. Pt also had c/p mild lower abd distention. Pt has a past Sx Hx of CABG and gastric bypass Sx. 12/01 ID Consultation Notes: Assessment Impression: 1. Leukocytosis likely reactive versus probably sepsis. 2. Hypertension. 3. Acute kidney injury. On hemodialysis. 4. Bleeding from multiple places. DIC. 5. Diabetes mellitus type 2. 6. CAD. With CABG. 7. Vent dependent respiratory failure. Intubated orally on 11/29/2022 8. S/p cardiopulmonary arrest. 9. Anoxic encephalopathy. 10. Right IJ Erasmo catheter. [11/24/2022]. Conditions: Continue meropenem. Overall prognosis is poor. Blood cultures. Overall prognosis is poor survival is less likely. Subjective Information Nutrition Consult received for TF 12/01/[address] spoke w/ pt's primary RN via phone call and he reported that pt has OGT to intermittent suction d/t coffee-ground output. He also reported pt still has some bleeding to nares. Pt was provided w/ PRBCs, platelets, and FFP today as well. RN stated that pt was seen by GI this morning already. GI notes not yet available via EMR. TF may not be appropriate yet at this time, however, RD relayed TF rec would be ready by today if/when plan is to proceed w/ TF. Current Diet Order/Nutrition Support Pureed, 2 gm Na x3 days Patient/Significant Other Unable To Verbalize Education Provided Indicated, provided 11/25 Pertinent Medications: sodium bicarb, colace, fentanyl, levophed, solu-medrol, SSI, humalog, zofran Pertinent Labs: H/H 6.8 L/20.2 L, ALB 2 L, Na 133 L, BUN 113 H, CRE 4.98 H, BG 216 H, BNO 3680 (11/28) Height (Feet) 5 feet Height (Inches) 6.00 inches Weight (Pounds) 150# (11/28) --> new documented wt: 160#/73 kg (12/01) -- note 10# wt gain within 3 days Patient Weight 68.039 kg Body Mass Index 24.21 kg/m2 Usual Weight 170 lbs %UBW 88 %IBW 106 [place]/Adjusted Body Weight 142#/65 kg Recent Weight Change Yes - 20# wt loss/12% wt change within 1-2 mo per family report Weight Status Appropriate Food Allergies No Usual Diet At Home Regular WARE CLEANER per nursing nutritional screening Last BM x2 11/28 Skin Integrity Comment: Devendra score: 12 Wounds: anterior L/R arm: ecchymosis/skin tear; anterior R leg: skin tear; L/R leg: erythema noted Edema: 2+ pitting edema to BLE noted Current % PO N/A NEW Estimated Energy Expenditure (kcals/day) 1552 (PSU d/t critical illness, intubated; Ve: 9.4, Tmax: 36.7'C) Estimated Protein Required (g/day) 65-97 (1.0-1.5 gm/kg IBW 65 kg d/t on dialysis, GERIAT status) Estimated Fluid Required (l/day) Per physician d/t ESRD Problem/Etiology/Signs/Symptoms *Altered nutrition-related labs R/T endocrine and renal dysfunction AEB abnormal BG/BUN/CRE lab values. *Ongoing *Inadequate nutrient intakes R/T lack of preference for hospital foods AEB poor PO intake records. *Ongoing *Impaired chewing/swallowing r/t motor causes AEB fatigues easily during meals and requiring texture modification per BRAKE OPERATOR HELPER eval. *Ongoing *Increased nutrient needs r/t increased demand for nutrients AEB on dialysis. *Ongoing Expected Outcomes/Goals - Monitor appetite and PO intakes w/ goal of pt meeting >80% of estimated nutritional needs, labs trending WNL, normal GI function, and skin integrity/wt maintenance Dietitian Recommendations * If/when medically appropriate, consider Vital AF 1.2 at 40 ml/hr (goal rate), Free Water Flush: per physician d/t ESRD via OGT Provides: 1560 ml/hr, 95 gm protein/day, and 733 ml free water/day Meets: 101% of lower end of estimated caloric needs and 98% of upper end of estimated protein needs Follow Up High Risk: F/U in 2-3 days
--- NOTE | 2022-12-01 13:10 | NUR ---
Problem/Etiology/Signs/Symptoms Dietitian Recommendations * If/when medically appropriate, consider Vital AF 1.2 at 40 ml/hr (goal rate), Free Water Flush: per physician d/t ESRD via OGT Provides: 1560 ml/hr, 95 gm protein/day, and 733 ml free water/day Meets: 101% of lower end of estimated caloric needs and 98% of upper end of estimated protein needs LP, MS, RD Please refer to Nutrition F/U for details.
--- NOTE | 2022-12-01 14:50 | NUR ---
RN NOTES ENT CONSULT FOR NASAL BLEEDING DR. HERNANDEZ (OUT OF TOWN) EXCHANGE CALLED FOR CONSULT. DR. HERRERA, COVERING FOR DR. HERNANDEZ WILL SEE PT.
[2022-12-01] MEDS: AZITHROMYCIN 250 MG in NS 250 ML IV SCH (17:24)
[2022-12-01] MEDS ORDERED: OXYMETAZOLINE HCL 0.05% NASAL SPRAY NS PRN (18:00)
--- NOTE | 2022-12-01 19:30 | NUR ---
RECEIVED SEDATED WITH FENTANYL DRIP AT 25 MCG/HR AND VERSED DRIP AT 2 MG/HR. PATIENT IS AROUSABLE, NOT FOLLOWING COMMANDS. oRALLY INTUBATED, ETT 7.5 AT 22 CM LIPLINE, AC 20, FIO2 30%, TV 450 AND PEEP 5. SUCTIONED BLOOD Y SECRETIONS TRACHEALLY IN SMALL AMOUNT. SAT 92%. CAMP HOUSEKEEPER IS SHOWING NSR. BP WDL, PALPABLE PULSES, GENERALIZED EDEMA PITTING EDEMA NOTED. ABDOMEN IS SLIGHTLY DISTENDED, POSITIVE BOWL SOUNDS. OGT TO LOW INTERMITTENT SUCTION, DRAINING COFFEE GROUND SECRETIONS. NELSON INTACT AND PATENT, DRAINING IRMA COLOR URINEIN SMALL AMOUNT. PATIENT IS A HEMODIALYSIS PATIENT WITH ACCESS ON THE RIGHT IJ CHOCO PIGTAIL. RIGHT ARM HAS PIV, GA #20. D5W WITH 3 AMPS OF NAHCO3 IS INFUSING AT 80 ML/HR. LEVOPHED IS ALSO INFUSING AT 0.05 MCG/KG/MIN. TEMP 97.8.
[2022-12-01] MEDS: FENTANYL CITRATE-0.9 % NACL/PF 100 ML IV PRN (19:51)
[2022-12-01] MEDS: MIDAZOLAM IN NACL,ISO-OSMOT/PF 100 ML IV PRN (19:55)
[2022-12-01 20:33] LABS: BASOPHILS % (AUTO) 0.2 % (0.0-2.0); LYMPHOCYTES # (AUTO) 0.2 K/uL (1.0-5.5); LYMPHOCYTES % (AUTO) 1.6 % (20.5-51.5); MEAN CORPUSCULAR HEMOGLOBIN 29 pg (27-31); MEAN CORPUSCULAR HGB CONC 33 % (32-36); MEAN CORPUSCULAR VOLUME 88 fL (79.0-98.0); MONOCYTES # (AUTO) 0.6 K/uL (0.0-1.0); MONOCYTES % (AUTO) 4.3 % (1.7-9.3); NEUTROPHILS # (AUTO) 12.9 K/uL (1.8-7.7); NEUTROPHILS % (AUTO) 93.9 % (40.0-70.0); PLATELET COUNT (AUTO) 72 K/uL (130-430); RED BLOOD CELL COUNT(AUTO) 2.33 MIL/uL (4.2-6.2); RED CELL DISTRIBUTION WIDTH 18.1 % (9.0-15.0); WHITE BLOOD COUNT (AUTO) 13.8 K/uL (4.8-10.8)
[2022-12-01 20:40] LABS: HEMATOCRIT 20.5 % (36-54); HEMOGLOBIN 6.7 g/dL (14.0-18.0)
[2022-12-01] MEDS: PANTOPRAZOLE SODIUM 40 MG/VIAL (PROTONIX) IVP SCH (21:40)
[2022-12-02] VITALS (34 sets, daily range): BP systolic 104–162; PULSE 70–88; RESP 10–21; TEMP 96.6–97.9; O2SAT 89–100
[2022-12-02] MEDS: IPRATROPIUM/ALBUTEROL SULFATE 3 ML AMPUL.NEB (DUONEB) INH SCH ×4 (01:40→19:45)
[2022-12-02 05:46] LABS: BASOPHILS % (AUTO) 0.1 % (0.0-2.0); HEMATOCRIT 24.1 % (36-54); HEMOGLOBIN 7.9 g/dL (14.0-18.0); LYMPHOCYTES # (AUTO) 0.2 K/uL (1.0-5.5); LYMPHOCYTES % (AUTO) 1.2 % (20.5-51.5); MEAN CORPUSCULAR HEMOGLOBIN 29 pg (27-31); MEAN CORPUSCULAR HGB CONC 33 % (32-36); MEAN CORPUSCULAR VOLUME 89 fL (79.0-98.0); MONOCYTES # (AUTO) 0.7 K/uL (0.0-1.0); MONOCYTES % (AUTO) 4.9 % (1.7-9.3); NEUTROPHILS # (AUTO) 12.6 K/uL (1.8-7.7); NEUTROPHILS % (AUTO) 93.8 % (40.0-70.0); PLATELET COUNT (AUTO) 84 K/uL (130-430); RED BLOOD CELL COUNT(AUTO) 2.72 MIL/uL (4.2-6.2); RED CELL DISTRIBUTION WIDTH 17.6 % (9.0-15.0); WHITE BLOOD COUNT (AUTO) 13.5 K/uL (4.8-10.8)
[2022-12-02 05:54] LABS: INR 1.3 (0.80-1.20); PROTHROMBIN TIME 13.3 SECS (9.5-12.5)
[2022-12-02 05:56] LABS: ANION GAP 10 (5-15); CALCIUM 7.6 mg/dL (8.4-11.0); CHLORIDE 91 mmol/L (98-107); CREATININE 4.55 mg/dL (0.55-1.30); GLUCOSE 157 mg/dL (74-106); PHOSPHORUS 5.2 mg/dL (2.7-4.5)
[2022-12-02] MEDS: FENTANYL CITRATE-0.9 % NACL/PF 100 ML IV PRN (06:00)
[2022-12-02 06:03] LABS: UREA NITROGEN, BLOOD 103 mg/dL (8-21)
[2022-12-02 06:08] LABS: ERYTHROCYTE SEDIMENTATION RATE < 1 MM/HR (0-15)
[2022-12-02] MEDS: MEROPENEM 500 MG in NS 50 ML IV SCH ×3 (07:06→21:37)
[2022-12-02] MEDS: METHYLPREDNISOLONE SOD SUCC 40 MG/ML VIAL IVP SCH ×3 (07:07→21:39)
[2022-12-02] MEDS: METOPROLOL TARTRATE 50 MG TABLET PO SCH ×2 (09:00→21:00)
[2022-12-02] MEDS: PANTOPRAZOLE SODIUM 40 MG/VIAL (PROTONIX) IVP SCH ×2 (10:07→21:36)
[2022-12-02] MEDS: MONTELUKAST 10 MG TABLET PO SCH (10:09)
[2022-12-02] MEDS: AMIODARONE HCL 200 MG TABLET PO SCH ×2 (10:09→21:32)
[2022-12-02] MEDS: POLYETHYLENE GLYCOL 3350, 17 GM/ POWD.PACK PO SCH (10:09)
[2022-12-02] MEDS: DOCUSATE SODIUM 100 MG CAPSULE PO SCH ×2 (10:10→21:32)
[2022-12-02] MEDS: INSULIN Lispro 100 UNITS/ML, 3 ML VIAL (humaLOG) SQ SCH ×2 (10:16→21:00)
--- NOTE | 2022-12-02 11:45 | NUR ---
PICC NEW PICC INSERTED IN RIGHT UPPER ARM.
[2022-12-02] MEDS ORDERED: ALBUMIN HUMAN 25% 100 ML IV ONE (12:00)
--- NOTE | 2022-12-02 13:00 | NUR ---
XRAY CHEST XRAY DONE TO CONFIRM PLACEMENT.
[2022-12-02] MEDS: AZITHROMYCIN 250 MG in NS 250 ML IV SCH (16:21)
[2022-12-02 17:14] LABS: ALBUMIN 2.3 g/dL (3.4-4.8); BILIRUBIN,DIRECT 0.7 mg/dL (0.0-0.3)
--- NOTE | 2022-12-02 18:39 | NUR ---
MD DR Brandon VARGHESE CAME IN TO SEE THE PATIENT. REPORTED BLOOD SUGAR READING 77. NEW ORDERS RECEIVED. TO HOLD HUMALOG DOSE THIS PM. NEPRO VIA OGT INITIATED
[2022-12-02] MEDS ORDERED: COMMUNICATION ORDER XX ONE (18:45)
--- NOTE | 2022-12-02 19:30 | NUR ---
RECEIVED SEDATED WITH VERSED AT 2MG/HR AND FENTANYL DRIP AT 30 MCG/HR. RASS -2. ORALLY INTUBATED, ETT 7.5 AT 22 CM LIP LINE. AC 20, FIO2 30%,TV 450 AND PEEP 5. SUCTIONED PRN, SAT 93-94%.EXECUTIVE CHEF ASSISTANT IS SHOWING NSR. GENERALIZED EDEMA NOTED, SOME SITES ARE WEEPING. PATIENT IS ON LEVOPHED AT 0.03 MCG/KG/MIN. ALL IVS ARE INFUSING ON THE RIGHT IJ TLC. ABDOMEN IS SOFT AND NON-DISTENDED, OGT FEEDING OF NEPHRO IS AT 10 ML/HR. ON ASPIRATION PRECAUTION. HOB ELEVATED. NELSON INTACT AND PATENT, DRAINING IRMA COLOR URINE. PATIENT IS A HEMODIALYSIS PATIENT, ACCESS RIGHT IJ CHOCO CATH WITH PIGTAIL. TEMP 97.8.
[2022-12-02] MEDS: SODIUM BICARBONATE 8.4% JECT 150 MEQ in D5W 1,000 ML IVP SCH (19:31)
[2022-12-03] VITALS (35 sets, daily range): BP systolic 94–128; PULSE 74–86; RESP 16–24; TEMP 97–98.5; O2SAT 91–99
[2022-12-03] MEDS: IPRATROPIUM/ALBUTEROL SULFATE 3 ML AMPUL.NEB (DUONEB) INH SCH ×4 (00:20→19:00)
[2022-12-03 05:38] LABS: BASOPHILS % (AUTO) 0.3 % (0.0-2.0); HEMATOCRIT 22.8 % (36-54); HEMOGLOBIN 7.5 g/dL (14.0-18.0); LYMPHOCYTES # (AUTO) 0.2 K/uL (1.0-5.5); LYMPHOCYTES % (AUTO) 1.3 % (20.5-51.5); MEAN CORPUSCULAR HEMOGLOBIN 29 pg (27-31); MEAN CORPUSCULAR HGB CONC 33 % (32-36); MEAN CORPUSCULAR VOLUME 89 fL (79.0-98.0); MONOCYTES # (AUTO) 0.3 K/uL (0.0-1.0); MONOCYTES % (AUTO) 2.4 % (1.7-9.3); NEUTROPHILS # (AUTO) 11.8 K/uL (1.8-7.7); PLATELET COUNT (AUTO) 66 K/uL (130-430); RED BLOOD CELL COUNT(AUTO) 2.55 MIL/uL (4.2-6.2); RED CELL DISTRIBUTION WIDTH 17.4 % (9.0-15.0); WHITE BLOOD COUNT (AUTO) 12.3 K/uL (4.8-10.8)
[2022-12-03] MEDS: MEROPENEM 500 MG in NS 50 ML IV SCH ×3 (05:47→21:10)
[2022-12-03] MEDS: METHYLPREDNISOLONE SOD SUCC 40 MG/ML VIAL IVP SCH ×3 (05:48→21:08)
[2022-12-03 06:02] LABS: ALANINE AMINOTRANSFERASE 234 U/L (12-78); ALBUMIN 2.5 g/dL (3.4-4.8); ANION GAP 9 (5-15); ASPARTATE AMINOTRANSFERASE 208 U/L (10-37); BILIRUBIN,DIRECT 1.1 mg/dL (0.0-0.3); CALCIUM 7.7 mg/dL (8.4-11.0); CHLORIDE 96 mmol/L (98-107); CREATININE 3.65 mg/dL (0.55-1.30); GLUCOSE 201 mg/dL (74-106); PHOSPHORUS 4.9 mg/dL (2.7-4.5); TOTAL BILIRUBIN 1.6 mg/dL (0.0-1.0); UREA NITROGEN, BLOOD 70 mg/dL (8-21)
[2022-12-03] MEDS: INSULIN REGULAR, HUMAN 100 UNITS/ML, 3 ML VIAL (humuLIN R) SUBCUT PRN ×4 (06:49→20:57)
--- NOTE | 2022-12-03 07:00 | NUR ---
Report received from JELLY Harding for continuity of care. Patient in stable condition at the moment. On ventilator intubated still. No signs of bleeding.
[2022-12-03] MEDS: POLYETHYLENE GLYCOL 3350, 17 GM/ POWD.PACK PO SCH (09:00)
[2022-12-03] MEDS: METOPROLOL TARTRATE 50 MG TABLET PO SCH ×2 (09:00→20:53)
[2022-12-03] MEDS: DOCUSATE SODIUM 100 MG CAPSULE PO SCH ×2 (09:00→20:53)
[2022-12-03] MEDS: PANTOPRAZOLE SODIUM 40 MG/VIAL (PROTONIX) IVP SCH ×2 (10:30→20:52)
[2022-12-03] MEDS: MONTELUKAST 10 MG TABLET PO SCH (10:31)
[2022-12-03] MEDS: AMIODARONE HCL 200 MG TABLET PO SCH ×2 (10:36→20:53)
--- NOTE | 2022-12-03 11:01 | NUR ---
Family member present and updated.
--- NOTE | 2022-12-03 11:35 | NUR ---
Dr. Gunn came to talk to family regarding update on status.
--- NOTE | 2022-12-03 11:40 | NUR ---
SPOKE WITH NOEMI REQUESTING ORDERS FROM DR. Nisha SEN.
--- NOTE | 2022-12-03 12:13 | NUR ---
CLARIFIED Sodium Bicarb ORDERS WITH Dr. Gunn. New orders noted and carried out.
--- NOTE | 2022-12-03 12:13 | NUR ---
CLARIFIED INSULIN ORDERS WITH Dr. Nisha Mcmillan. New orders noted and carried out.
--- NOTE | 2022-12-03 12:14 | NUR ---
Notified CARISSA Lebron regarding latest troponin labs. New orders noted and carried out.
--- NOTE | 2022-12-03 12:53 | NUR ---
Reported to Dr. Siri Manzano regarding Troponin 1612, and then Troponin 1662. No new orders. Will continue to monitor.
[2022-12-03] MEDS: MIDAZOLAM IN NACL,ISO-OSMOT/PF 100 ML IV PRN (15:30)
[2022-12-03] MEDS: FENTANYL CITRATE-0.9 % NACL/PF 100 ML IV PRN (15:32)
[2022-12-03] MEDS: EPOETIN ALFA-EPBX 10,000 UNITS/ML VIAL SUBCUT SCH (16:38)
--- NOTE | 2022-12-03 19:13 | NUR ---
Report given to JELLY Rodgers for continuity of care. Patient in stable condition.
[2022-12-03] MEDS: INSULIN GLARGINE 100 UNITS/ML, 10 ML VIAL SUBCUT SCH (20:56)
[2022-12-04] VITALS (34 sets, daily range): BP systolic 98–123; PULSE 68–86; RESP 16–20; TEMP 96.8–98.2; O2SAT 91–95
[2022-12-04] MEDS: IPRATROPIUM/ALBUTEROL SULFATE 3 ML AMPUL.NEB (DUONEB) INH SCH ×3 (00:55→19:30)
[2022-12-04 04:40] LABS: BASOPHILS % (AUTO) 0.2 % (0.0-2.0); HEMATOCRIT 24.2 % (36-54); HEMOGLOBIN 7.7 g/dL (14.0-18.0); LYMPHOCYTES # (AUTO) 0.1 K/uL (1.0-5.5); LYMPHOCYTES % (AUTO) 0.9 % (20.5-51.5); MEAN CORPUSCULAR HEMOGLOBIN 29 pg (27-31); MEAN CORPUSCULAR HGB CONC 32 % (32-36); MEAN CORPUSCULAR VOLUME 91 fL (79.0-98.0); MONOCYTES # (AUTO) 0.5 K/uL (0.0-1.0); MONOCYTES % (AUTO) 3.4 % (1.7-9.3); NEUTROPHILS # (AUTO) 15.3 K/uL (1.8-7.7); NEUTROPHILS % (AUTO) 95.5 % (40.0-70.0); PLATELET COUNT (AUTO) 85 K/uL (130-430); RED BLOOD CELL COUNT(AUTO) 2.67 MIL/uL (4.2-6.2); RED CELL DISTRIBUTION WIDTH 17.8 % (9.0-15.0)
[2022-12-04 05:09] LABS: ALANINE AMINOTRANSFERASE 205 U/L (12-78); ALBUMIN 2.5 g/dL (3.4-4.8); ANION GAP 10 (5-15); ASPARTATE AMINOTRANSFERASE 174 U/L (10-37); CALCIUM 8.2 mg/dL (8.4-11.0); CHLORIDE 96 mmol/L (98-107); CREATININE 4.17 mg/dL (0.55-1.30); GLUCOSE 225 mg/dL (74-106); PHOSPHORUS 5.6 mg/dL (2.7-4.5); TOTAL BILIRUBIN 1.2 mg/dL (0.0-1.0); UREA NITROGEN, BLOOD 93 mg/dL (8-21)
[2022-12-04] MEDS: METHYLPREDNISOLONE SOD SUCC 40 MG/ML VIAL IVP SCH ×3 (06:31→22:51)
[2022-12-04] MEDS: MEROPENEM 500 MG in NS 50 ML IV SCH ×3 (06:31→22:51)
[2022-12-04] MEDS: INSULIN REGULAR, HUMAN 100 UNITS/ML, 3 ML VIAL (humuLIN R) SUBCUT PRN ×2 (06:34→17:38)
[2022-12-04] MEDS: POLYETHYLENE GLYCOL 3350, 17 GM/ POWD.PACK PO SCH (09:00)
[2022-12-04] MEDS: DOCUSATE SODIUM 100 MG CAPSULE PO SCH ×3 (09:00→22:47)
[2022-12-04] MEDS: METOPROLOL TARTRATE 50 MG TABLET PO SCH ×2 (09:00→22:48)
[2022-12-04] MEDS: PANTOPRAZOLE SODIUM 40 MG/VIAL (PROTONIX) IVP SCH ×2 (09:39→22:45)
[2022-12-04] MEDS: AMIODARONE HCL 200 MG TABLET PO SCH ×2 (09:40→22:47)
[2022-12-04] MEDS: MONTELUKAST 10 MG TABLET PO SCH (09:43)
[2022-12-04] MEDS: HEPARIN SODIUM,PORCINE 5,000 UNITS/ML VIAL MC PRN (17:40)
[2022-12-04] MEDS: FENTANYL CITRATE-0.9 % NACL/PF 100 ML IV PRN (20:00)
[2022-12-04] MEDS: INSULIN GLARGINE 100 UNITS/ML, 10 ML VIAL SUBCUT SCH (22:55)
[2022-12-05] VITALS (34 sets, daily range): BP systolic 97–133; PULSE 68–103; RESP 14–23; TEMP 97–97.8; O2SAT 93–100
[2022-12-05] MEDS: IPRATROPIUM/ALBUTEROL SULFATE 3 ML AMPUL.NEB (DUONEB) INH SCH ×4 (02:20→19:35)
[2022-12-05] MEDS: FENTANYL CITRATE-0.9 % NACL/PF 100 ML IV PRN (05:30)
[2022-12-05 05:35] LABS: BASOPHILS % (AUTO) 0.2 % (0.0-2.0); HEMATOCRIT 23.5 % (36-54); HEMOGLOBIN 7.5 g/dL (14.0-18.0); LYMPHOCYTES # (AUTO) 0.1 K/uL (1.0-5.5); LYMPHOCYTES % (AUTO) 0.9 % (20.5-51.5); MEAN CORPUSCULAR HEMOGLOBIN 29 pg (27-31); MEAN CORPUSCULAR HGB CONC 32 % (32-36); MEAN CORPUSCULAR VOLUME 90 fL (79.0-98.0); MONOCYTES # (AUTO) 0.5 K/uL (0.0-1.0); NEUTROPHILS # (AUTO) 15.5 K/uL (1.8-7.7); NEUTROPHILS % (AUTO) 95.9 % (40.0-70.0); PLATELET COUNT (AUTO) 80 K/uL (130-430); RED BLOOD CELL COUNT(AUTO) 2.61 MIL/uL (4.2-6.2); RED CELL DISTRIBUTION WIDTH 17.6 % (9.0-15.0); WHITE BLOOD COUNT (AUTO) 16.1 K/uL (4.8-10.8)
[2022-12-05 06:14] LABS: ANION GAP 10 (5-15); CALCIUM 8.3 mg/dL (8.4-11.0); CHLORIDE 101 mmol/L (98-107); CREATININE 3.76 mg/dL (0.55-1.30); GLUCOSE 175 mg/dL (74-106); PHOSPHORUS 5.7 mg/dL (2.7-4.5); UREA NITROGEN, BLOOD 80 mg/dL (8-21)
[2022-12-05] MEDS: METHYLPREDNISOLONE SOD SUCC 40 MG/ML VIAL IVP SCH ×3 (06:36→21:12)
[2022-12-05] MEDS: MEROPENEM 500 MG in NS 50 ML IV SCH ×3 (06:39→21:12)
[2022-12-05 07:32] LABS: ERYTHROCYTE SEDIMENTATION RATE < 1 MM/HR (0-15)
[2022-12-05] MEDS: PANTOPRAZOLE SODIUM 40 MG/VIAL (PROTONIX) IVP SCH ×2 (08:22→21:11)
[2022-12-05] MEDS: MONTELUKAST 10 MG TABLET PO SCH (08:22)
[2022-12-05] MEDS: POLYETHYLENE GLYCOL 3350, 17 GM/ POWD.PACK PO SCH (08:24)
[2022-12-05] MEDS: DOCUSATE SODIUM 100 MG CAPSULE PO SCH ×2 (08:25→21:13)
[2022-12-05] MEDS: AMIODARONE HCL 200 MG TABLET PO SCH ×2 (08:26→21:13)
[2022-12-05] MEDS: METOPROLOL TARTRATE 50 MG TABLET PO SCH ×2 (08:26→21:00)
--- NOTE | 2022-12-05 09:52 | NUR ---
Nutrition F/U RD reviewed pts current EMR including diet hx, physician notes, nursing notes, pertinent labs/meds/procedures, care trends and care activity. Admitting Diagnosis ARF Subjective Information RD rounded to ICU and s/w Mehdi REAVES regarding pt condition. RN reports that pt was admitted for abd distention and then diagnosed w/ renal failure. He reports that pt is not tolerating TF and it has been paused for now. RN reports that pt was having bleeding from nose/ mouth but has since stopped after blood thinner meds were DC and both nostrils were packed. RD asked about wounds and RN states that pt has wound on leg and new wound on buttocks. RD suggested Kenyon and wound care meds. Per EMR review: Devendra 10; abd distended, tender w/ hyperactive bowel sounds; GRV 150mL (12/05). Pt is likely not meeting needs at this time. Current Diet Order/Nutrition Support Nepro @ 40mL/hr (goal), FWF 100 q6h via OGT x 3 days % PO intake N/A Last BM 12/04 x 1 Estimated Energy Expenditure (kcals/day) 1552 (PSU 2002b d/t critical illness, intubated; Ve: 9.4, Tmax: 36.7'C) Estimated Protein Required (g/day) 65-97 (1.0-1.5 gm/kg IBW 65 kg d/t on dialysis, GERIAT status) Estimated Fluid Required (l/day) Per physician d/t ESRD Problem/Etiology/Signs/Symptoms *Altered nutrition-related labs R/T endocrine and renal dysfunction AEB abnormal BG/BUN/CRE lab values. *Ongoing *Inadequate nutrient intakes R/T lack of preference for hospital foods AEB poor PO intake records *Ongoing *Impaired chewing/swallowing r/t motor causes AEB fatigues easily during meals and requiring texture modification per EMERGENCY ROOM ORDERLY eval. *Ongoing *Increased nutrient needs r/t increased demand for nutrients AEB on dialysis. *Ongoing Expected Outcomes/Goals - Monitor appetite and PO intakes w/ goal of pt meeting >80% of estimated nutritional needs, labs trending WNL, normal GI function, and skin integrity/wt maintenance Dietitian Recommendations * Changed rate: Vital AF 1.2 at 30 ml/hr (goal rate), Kenyon BID, Free Water Flush: per physician d/t ESRD via OGT Provides (w/ Kenyon): 1476 ml/hr, 63 gm protein/day, and 523 ml free water/day Meets: 95% of lower end of estimated caloric needs and 97% of lower end of estimated protein needs * Ordered: Kenyon BID (provides 180 kcal, 5 g PRO) for wounds * Consider wound supplements: MVI, 250 mg VIT C; 220mg ZnSO4 x 14 days for wound healing Follow up * High risk: f/u in 2-3 days GS, MPH, RD
--- NOTE | 2022-12-05 09:57 | NUR ---
Dietitian Recommendations * Changed rate: Vital AF 1.2 at 30 ml/hr (goal rate), Kenyon BID, Free Water Flush: per physician d/t ESRD via OGT Provides (w/ Kenyon): 1476 ml/hr, 63 gm protein/day, and 523 ml free water/day Meets: 95% of lower end of estimated caloric needs and 97% of lower end of estimated protein needs * Ordered: Kenyon BID (provides 180 kcal, 5 g PRO) for wounds * Consider wound supplements: MVI, 250 mg VIT C; 220mg ZnSO4 x 14 days for wound healing GS, MPH, RD Please refer to Nutrition F/U for further details. Thanks!
[2022-12-05] MEDS: INSULIN REGULAR, HUMAN 100 UNITS/ML, 3 ML VIAL (humuLIN R) SUBCUT PRN ×2 (11:49→21:15)
--- NOTE | 2022-12-05 13:39 | NUR ---
1305 CALLED TO PTS ROOM FOR LOW O2 SATS. PT ON CPAP. HME IS FULL OF SECRETIONS. O2 SAT IN THE 50'S, HR = 47. REMOVED PT FROM VENT. AND MANUALLY VENTILATED PT.. HR INCREASED TO 77. O2 SAT INCREASED TO 99%. PALPABLE PULES NOTED. VENT RESUMED. SETTING ARE AC14, VT 450, PEEP 5 & FIO2 28%. 1330 SPO2 DECREASED TO 88% INCREASED FIO2 TO 40%. SPO2 = 92% Addendum: 12/05/22 at 1358 by Nathaly Oliveros RT WRONG PT..
[2022-12-05] MEDS: EPOETIN ALFA-EPBX 10,000 UNITS/ML VIAL SUBCUT SCH (17:23)
[2022-12-05] MEDS: INSULIN GLARGINE 100 UNITS/ML, 10 ML VIAL SUBCUT SCH (21:14)
[2022-12-05] MEDS: MIDAZOLAM IN NACL,ISO-OSMOT/PF 100 ML IV PRN (22:11)
[2022-12-06] VITALS (35 sets, daily range): BP systolic 106–174; PULSE 65–84; RESP 16–20; TEMP 97.5–97.9; O2SAT 92–100
[2022-12-06] MEDS: IPRATROPIUM/ALBUTEROL SULFATE 3 ML AMPUL.NEB (DUONEB) INH SCH ×4 (00:55→18:57)
[2022-12-06] MEDS: FENTANYL CITRATE-0.9 % NACL/PF 100 ML IV PRN ×2 (03:03→19:45)
[2022-12-06 04:43] LABS: BASOPHILS # (AUTO) 0.1 K/uL (0.0-0.2); BASOPHILS % (AUTO) 0.5 % (0.0-2.0); EOSINOPHILS % (AUTO) 0.1 % (0.0-4.0); HEMATOCRIT 24.8 % (36-54); LYMPHOCYTES # (AUTO) 0.2 K/uL (1.0-5.5); MEAN CORPUSCULAR HEMOGLOBIN 29 pg (27-31); MEAN CORPUSCULAR HGB CONC 32 % (32-36); MEAN CORPUSCULAR VOLUME 89 fL (79.0-98.0); MONOCYTES # (AUTO) 0.5 K/uL (0.0-1.0); MONOCYTES % (AUTO) 2.5 % (1.7-9.3); NEUTROPHILS # (AUTO) 18.2 K/uL (1.8-7.7); NEUTROPHILS % (AUTO) 95.9 % (40.0-70.0); PLATELET COUNT (AUTO) 106 K/uL (130-430); RED BLOOD CELL COUNT(AUTO) 2.78 MIL/uL (4.2-6.2); RED CELL DISTRIBUTION WIDTH 17.2 % (9.0-15.0)
[2022-12-06 04:53] LABS: ANION GAP 10 (5-15); CALCIUM 8.2 mg/dL (8.4-11.0); CHLORIDE 100 mmol/L (98-107); CREATININE 4.23 mg/dL (0.55-1.30); GLUCOSE 167 mg/dL (74-106); PHOSPHORUS 6.2 mg/dL (2.7-4.5)
[2022-12-06 05:43] LABS: ERYTHROCYTE SEDIMENTATION RATE 1 MM/HR (0-15)
[2022-12-06 06:02] LABS: UREA NITROGEN, BLOOD 102 mg/dL (8-21)
[2022-12-06] MEDS: MEROPENEM 500 MG in NS 50 ML IV SCH ×3 (06:23→21:03)
[2022-12-06] MEDS: METHYLPREDNISOLONE SOD SUCC 40 MG/ML VIAL IVP SCH (06:24)
[2022-12-06] MEDS: INSULIN REGULAR, HUMAN 100 UNITS/ML, 3 ML VIAL (humuLIN R) SUBCUT PRN ×2 (06:33→21:04)
[2022-12-06] MEDS: PANTOPRAZOLE SODIUM 40 MG/VIAL (PROTONIX) IVP SCH ×2 (08:27→20:58)
[2022-12-06] MEDS: AMIODARONE HCL 200 MG TABLET PO SCH ×2 (08:28→20:59)
[2022-12-06] MEDS: METOPROLOL TARTRATE 50 MG TABLET PO SCH ×2 (08:28→21:03)
[2022-12-06] MEDS: DOCUSATE SODIUM 100 MG CAPSULE PO SCH ×2 (08:29→20:59)
[2022-12-06] MEDS: MONTELUKAST 10 MG TABLET PO SCH (08:29)
[2022-12-06] MEDS: POLYETHYLENE GLYCOL 3350, 17 GM/ POWD.PACK PO SCH (08:29)
[2022-12-06] MEDS: MIDAZOLAM IN NACL,ISO-OSMOT/PF 100 ML IV PRN (17:40)
[2022-12-06] MEDS ORDERED: HEPARIN SODIUM,PORCINE 5,000 UNITS/ML VIAL ONE (19:03)
[2022-12-06] MEDS: INSULIN GLARGINE 100 UNITS/ML, 10 ML VIAL SUBCUT SCH (21:01)
[2022-12-07] VITALS (35 sets, daily range): BP systolic 93–173; PULSE 46–94; RESP 14–25; TEMP 97.7–98.6; O2SAT 92–100
[2022-12-07] MEDS: IPRATROPIUM/ALBUTEROL SULFATE 3 ML AMPUL.NEB (DUONEB) INH SCH ×4 (01:33→19:36)
[2022-12-07] MEDS: MEROPENEM 500 MG in NS 50 ML IV SCH ×3 (05:48→23:53)
[2022-12-07 05:55] LABS: BASOPHILS % (AUTO) 0.2 % (0.0-2.0); HEMATOCRIT 24.3 % (36-54); HEMOGLOBIN 7.8 g/dL (14.0-18.0); LYMPHOCYTES # (AUTO) 0.3 K/uL (1.0-5.5); LYMPHOCYTES % (AUTO) 1.8 % (20.5-51.5); MEAN CORPUSCULAR HEMOGLOBIN 29 pg (27-31); MEAN CORPUSCULAR HGB CONC 32 % (32-36); MEAN CORPUSCULAR VOLUME 90 fL (79.0-98.0); MONOCYTES # (AUTO) 1.2 K/uL (0.0-1.0); MONOCYTES % (AUTO) 6.2 % (1.7-9.3); NEUTROPHILS % (AUTO) 91.8 % (40.0-70.0); PLATELET COUNT (AUTO) 105 K/uL (130-430); RED BLOOD CELL COUNT(AUTO) 2.71 MIL/uL (4.2-6.2); RED CELL DISTRIBUTION WIDTH 17.2 % (9.0-15.0); WHITE BLOOD COUNT (AUTO) 18.5 K/uL (4.8-10.8)
[2022-12-07 06:11] LABS: ERYTHROCYTE SEDIMENTATION RATE < 1 MM/HR (0-15)
[2022-12-07 06:25] LABS: ANION GAP 14 (5-15); CALCIUM 8.3 mg/dL (8.4-11.0); CHLORIDE 100 mmol/L (98-107); CREATININE 4.83 mg/dL (0.55-1.30); GLUCOSE 122 mg/dL (74-106); PHOSPHORUS 7.2 mg/dL (2.7-4.5)
[2022-12-07 06:31] LABS: UREA NITROGEN, BLOOD 121 mg/dL (8-21)
[2022-12-07] MEDS: FENTANYL CITRATE-0.9 % NACL/PF 100 ML IV PRN (06:43)
--- NOTE | 2022-12-07 08:00 | NUR ---
RN NOTES STILL ORALLY INTUBATED TO VENT, ON 30% FIO2, O2 SAT IS GOOD. SINUS RHYTHM ON THE MONITOR. OGT FEEDING HELD OGT RESIDUAL IS 100ML
[2022-12-07] MEDS: PANTOPRAZOLE SODIUM 40 MG/VIAL (PROTONIX) IVP SCH ×2 (08:58→23:21)
[2022-12-07] MEDS: MONTELUKAST 10 MG TABLET PO SCH (08:59)
[2022-12-07] MEDS: METHYLPREDNISOLONE SOD SUCC 40 MG/ML VIAL IVP SCH (08:59)
[2022-12-07] MEDS: METOPROLOL TARTRATE 50 MG TABLET PO SCH ×2 (09:00→23:22)
[2022-12-07] MEDS: AMIODARONE HCL 200 MG TABLET PO SCH ×2 (09:00→23:23)
[2022-12-07] MEDS: POLYETHYLENE GLYCOL 3350, 17 GM/ POWD.PACK PO SCH (09:00)
[2022-12-07] MEDS: DOCUSATE SODIUM 100 MG CAPSULE PO SCH ×2 (09:00→21:00)
--- NOTE | 2022-12-07 10:00 | NUR ---
RN NOTES HEMODIALYSIS IN PROGRESS. VITALS CLOSELY MONITORED.
[2022-12-07] MEDS ORDERED: ALBUMIN HUMAN 25% 100 ML IV ONE ×2 (11:22→12:00)
--- NOTE | 2022-12-07 11:30 | NUR ---
RN NOTES FAMILY AT BEDSIDE, UPDATED.
--- NOTE | 2022-12-07 12:00 | NUR ---
RN NOTES BS - 134 MG/DL
[2022-12-07] MEDS: MIDAZOLAM IN NACL,ISO-OSMOT/PF 100 ML IV PRN (15:30)
[2022-12-07] MEDS: EPOETIN ALFA-EPBX 10,000 UNITS/ML VIAL SUBCUT SCH (17:49)
--- NOTE | 2022-12-07 18:30 | NUR ---
RN NOTES PM CARE DONE, CHG BATH RENDERED. PATIENT REPOSITIONED FOR COMFORT.
[2022-12-07] MEDS: INSULIN GLARGINE 100 UNITS/ML, 10 ML VIAL SUBCUT SCH (21:00)
[2022-12-08] VITALS (32 sets, daily range): BP systolic 79–129; PULSE 66–89; RESP 16–21; TEMP 97.5–100.5; O2SAT 96–100
[2022-12-08] MEDS: IPRATROPIUM/ALBUTEROL SULFATE 3 ML AMPUL.NEB (DUONEB) INH SCH ×4 (01:19→19:17)
[2022-12-08] MEDS: FENTANYL CITRATE-0.9 % NACL/PF 100 ML IV PRN (02:22)
--- NOTE | 2022-12-08 03:00 | NUR ---
DR CHUCKIE Azevedo here evaluating Pt.
[2022-12-08 05:12] LABS: ERYTHROCYTE SEDIMENTATION RATE < 1 MM/HR (0-15)
[2022-12-08 05:23] LABS: BASOPHILS % (AUTO) 0.3 % (0.0-2.0); HEMATOCRIT 24.3 % (36-54); HEMOGLOBIN 7.9 g/dL (14.0-18.0); LYMPHOCYTES # (AUTO) 0.4 K/uL (1.0-5.5); LYMPHOCYTES % (AUTO) 2.5 % (20.5-51.5); MEAN CORPUSCULAR HEMOGLOBIN 29 pg (27-31); MEAN CORPUSCULAR HGB CONC 32 % (32-36); MEAN CORPUSCULAR VOLUME 90 fL (79.0-98.0); MONOCYTES # (AUTO) 1.2 K/uL (0.0-1.0); MONOCYTES % (AUTO) 7.7 % (1.7-9.3); NEUTROPHILS # (AUTO) 14.5 K/uL (1.8-7.7); NEUTROPHILS % (AUTO) 89.5 % (40.0-70.0); PLATELET COUNT (AUTO) 109 K/uL (130-430); RED BLOOD CELL COUNT(AUTO) 2.71 MIL/uL (4.2-6.2); RED CELL DISTRIBUTION WIDTH 16.6 % (9.0-15.0); WHITE BLOOD COUNT (AUTO) 16.2 K/uL (4.8-10.8)
[2022-12-08 05:42] LABS: ALANINE AMINOTRANSFERASE 77 U/L (12-78); ALBUMIN 2.5 g/dL (3.4-4.8); ANION GAP 10 (5-15); ASPARTATE AMINOTRANSFERASE 68 U/L (10-37); CALCIUM 7.9 mg/dL (8.4-11.0); CHLORIDE 101 mmol/L (98-107); CREATININE 3.53 mg/dL (0.55-1.30); GLUCOSE 130 mg/dL (74-106); PHOSPHORUS 5.8 mg/dL (2.7-4.5); TOTAL BILIRUBIN 1.3 mg/dL (0.0-1.0); UREA NITROGEN, BLOOD 80 mg/dL (8-21)
[2022-12-08] MEDS: MEROPENEM 500 MG in NS 50 ML IV SCH ×3 (08:44→23:45)
--- NOTE | 2022-12-08 08:55 | NUR ---
RN NOTES DR. MCCAULEY HERE TO SEE PATIENT, WITH ORDERS. FENTANYL AND VERSED DRIP OFF, ORDERED. NEPRO FEEDING GOING ON AT 30 ML/HR
[2022-12-08] MEDS: METOPROLOL TARTRATE 50 MG TABLET PO SCH ×2 (09:00→23:41)
[2022-12-08] MEDS: PANTOPRAZOLE SODIUM 40 MG/VIAL (PROTONIX) IVP SCH ×2 (09:25→23:25)
[2022-12-08] MEDS: METHYLPREDNISOLONE SOD SUCC 40 MG/ML VIAL IVP SCH (09:25)
[2022-12-08] MEDS: AMIODARONE HCL 200 MG TABLET PO SCH ×2 (09:26→23:27)
[2022-12-08] MEDS: MONTELUKAST 10 MG TABLET PO SCH (09:26)
[2022-12-08] MEDS: DOCUSATE SODIUM 100 MG CAPSULE PO SCH ×2 (09:26→23:28)
[2022-12-08] MEDS: POLYETHYLENE GLYCOL 3350, 17 GM/ POWD.PACK PO SCH (09:26)
--- NOTE | 2022-12-08 09:45 | NUR ---
RT NOTES Coordinated with RN, vent to cpap 5 ps 10. No adverse reactions noted. No apneic episodes noted. Will monitor pt.
--- NOTE | 2022-12-08 10:00 | NUR ---
RN NOTES FAMILY HERE TO VISIT, UPDATED ON PT PRESENT CONDITION.
--- NOTE | 2022-12-08 10:50 | NUR ---
MD VISIT SEEN AND EXAMINED BY DR. FAIR, NO ORDERS MADE.
--- NOTE | 2022-12-08 11:02 | NUR ---
RT NOTES end cpap vent back to AC, pt tolerated 1 hour of cpap as ordered. Leah berrios.
--- NOTE | 2022-12-08 12:00 | NUR ---
RN NOTES HEMODIALYSIS IN PROGRESS. PATIENT SEEN AND EXAMINED BY DR. SAINI.
[2022-12-08] MEDS: HEPARIN SODIUM,PORCINE 5,000 UNITS/ML VIAL MC PRN (13:30)
--- NOTE | 2022-12-08 17:00 | NUR ---
RN NOTES PM CARE DONE, WOUND CARE DRESSINGS DONE. PATIENT REPOSITIONED FOR COMFORT.
--- NOTE | 2022-12-08 18:30 | NUR ---
RN NOTES STILL ON SAME VENT SETTING, SEDATION OFF. PATIENT APPEARS COMFORTABLE. SR ON THE MONITOR. VITALS STABLE.
[2022-12-08] MEDS: INSULIN REGULAR, HUMAN 100 UNITS/ML, 3 ML VIAL (humuLIN R) SUBCUT PRN (19:00)
--- NOTE | 2022-12-08 22:38 | NUR ---
Nutrition F/U RD reviewed pts current EMR including diet hx, physician notes, nursing notes, pertinent labs/meds/procedures, care trends and care activity. Admitting Diagnosis ARF Subjective Information Per EMR (12/08/22), patient remains on mechanical vent, currently on sedation fentanyl and versed, acute on chronic respiratory failure, end-stage cardiomyopathy, encephalopathy, epistaxis, possible GI bleed, acute on chronic renal failure on dialysis, cirrhosis, cellulitis of the lower extremity, a-fib. Pertinent labs: (12/08/22) Hgb 7.9L, Hct 24.3L, BUN 80H, Crea 3.53H, Gluc 130H, Ca 7.9L, Phos 5.8H, Mg 2.4H, Tbili 1.3H, AST 68H, Alkphos 131.4H Pertinent Medications: Solu-MEDROL, Protonix, Miralax, Docusate, Insulin, Zofran Devendra Score [address] rounded to ICU and s/w RN regarding pt condition. RN reports that pt is seems to be tolerating TF better as residuals have been improving . RD asked about wounds and if Kenyon had been considered per previous RDs recommendation. Kenyon not added, however, discussed with RN and agreed it would be beneficial. Pt has wound on leg and new wound on buttocks. RD suggested Kenyon and wound care meds. Nepro running at goal rate 30 mL/hr Per EMR review: Devendra 12 (improved); abd soft, non-distended, hypoactive bowel sounds Current Diet Order/Nutrition Support Nepro @ 30mL/hr (goal), FWF 100 q6h via OGT x 3 days % PO intake N/A Last BM 12/08 x 1 Estimated Energy Expenditure (kcals/day) 1552 (PSU d/t critical illness, intubated; Ve: 9.4, Tmax: 36.7'C) Estimated Protein Required (g/day) 65-97 (1.0-1.5 gm/kg IBW 65 kg d/t on dialysis, GERIAT status) Estimated Fluid Required (l/day) Per physician d/t ESRD Problem/Etiology/Signs/Symptoms *Altered nutrition-related labs R/T endocrine and renal dysfunction AEB abnormal BG/BUN/CRE lab values. *Ongoing *Inadequate nutrient intakes R/T lack of preference for hospital foods AEB poor PO intake records *Ongoing *Impaired chewing/swallowing r/t motor causes AEB fatigues easily during meals and requiring texture modification per INFRASTRUCTURE DESIGN ENGINEER eval. *Ongoing, currently on TF *Increased nutrient needs r/t increased demand for nutrients AEB on dialysis. *Ongoing Expected Outcomes/Goals - Tube feeding to meet nutrient needs without GI complications, to meet >80% of estimated nutritional needs, labs trending WNL, normal GI function, and skin integrity/wt maintenance Dietitian Recommendations * Continue on Nepro at 30 ml/hr (goal rate)Free Water Flush: per physician d/t ESRD via OGT *Recommend Kenyon BID to help with nutrient needs Provides (w/ Kenyon): 1456 kcal/day, 63 gm protein/day, and 523 ml free water/day Meets: 95% of lower end of estimated caloric needs and 97% of lower end of estimated protein needs * Ordered: Kenyon BID (provides 180 kcal, 5 g PRO) for wounds * Consider wound supplements: MVI, 250 mg VIT C; 220mg ZnSO4 x 14 days for wound healing Follow up * Moderate Risk: F/U in 3-5 days RM, RDN
--- NOTE | 2022-12-08 22:39 | NUR ---
RD Recommendations * Continue on Nepro at 30 ml/hr (goal rate)Free Water Flush: per physician d/t ESRD via OGT *Recommend Kenyon BID to help with nutrient needs Provides (w/ Kenyon): 1456 kcal/day, 63 gm protein/day, and 523 ml free water/day Meets: 95% of lower end of estimated caloric needs and 97% of lower end of estimated protein needs * Ordered: Kenyon BID (provides 180 kcal, 5 g PRO) for wounds * Consider wound supplements: MVI, 250 mg VIT C; 220mg ZnSO4 x 14 days for wound healing Please refer to RD Assessement 12/08/22 for details RM, RDN
[2022-12-08] MEDS: INSULIN GLARGINE 100 UNITS/ML, 10 ML VIAL SUBCUT SCH (23:47)
[2022-12-08] MEDS ORDERED: NOREPINEPHRINE 4 MG/4 ML VIAL IV ONE (23:54)
[2022-12-09] VITALS (29 sets, daily range): BP systolic 100–144; PULSE 62–95; RESP 12–23; TEMP 96.8–98.6; O2SAT 95–100
[2022-12-09] MEDS: NOREPINEPHRINE BITARTRATE 16 MG in NS 234 ML IV PRN ×2
[2022-12-09] MEDS: IPRATROPIUM/ALBUTEROL SULFATE 3 ML AMPUL.NEB (DUONEB) INH SCH ×4 (01:20→20:07)
[2022-12-09 06:07] LABS: HEMATOCRIT 23.2 % (36-54); HEMOGLOBIN 7.3 g/dL (14.0-18.0); LYMPHOCYTES # (AUTO) 0.4 K/uL (1.0-5.5); LYMPHOCYTES % (AUTO) 2.5 % (20.5-51.5); MEAN CORPUSCULAR HEMOGLOBIN 28 pg (27-31); MEAN CORPUSCULAR HGB CONC 32 % (32-36); MEAN CORPUSCULAR VOLUME 90 fL (79.0-98.0); MONOCYTES # (AUTO) 1.4 K/uL (0.0-1.0); MONOCYTES % (AUTO) 8.4 % (1.7-9.3); NEUTROPHILS # (AUTO) 14.5 K/uL (1.8-7.7); NEUTROPHILS % (AUTO) 89.1 % (40.0-70.0); PLATELET COUNT (AUTO) 113 K/uL (130-430); RED BLOOD CELL COUNT(AUTO) 2.58 MIL/uL (4.2-6.2); RED CELL DISTRIBUTION WIDTH 16.9 % (9.0-15.0); WHITE BLOOD COUNT (AUTO) 16.3 K/uL (4.8-10.8)
[2022-12-09] MEDS: MEROPENEM 500 MG in NS 50 ML IV SCH ×3 (06:17→23:18)
[2022-12-09 06:29] LABS: ANION GAP 8 (5-15); CALCIUM 7.8 mg/dL (8.4-11.0); CHLORIDE 102 mmol/L (98-107); CREATININE 2.75 mg/dL (0.55-1.30); GLUCOSE 145 mg/dL (74-106); PHOSPHORUS 4.3 mg/dL (2.7-4.5); UREA NITROGEN, BLOOD 65 mg/dL (8-21)
--- NOTE | 2022-12-09 07:30 | NUR ---
Received report from nightshift RN Patient appears to be resting comfortably. Vent settings are ACVC w/ rate of 20, FiO2 @ 30%, TV @ 450, and PEEP @ 5. IV Drips and settings are Levophed @ 0.01 (0.7 mL/hr), Precedex is empty but normally running at 0.5 (will hold until after CPAP trial, longer if deemed unnecessary), and NS TKO (3 mL/hr). OG tube running Nepro 1.8 @ 30 mL/hr (goal) with no residuals, 100 mL flushes Q6H. No dialysis scheduled for today.
--- NOTE | 2022-12-09 08:10 | NUR ---
RT NOTES cpap Coordinated with Leah Britton, vent to cpap 5 ps of 10 per order. No adverse reactions noted. will monitor pt
[2022-12-09] MEDS: AMIODARONE HCL 200 MG TABLET PO SCH ×2 (08:47→23:07)
[2022-12-09] MEDS: MONTELUKAST 10 MG TABLET PO SCH (08:47)
[2022-12-09] MEDS: DOCUSATE SODIUM 100 MG CAPSULE PO SCH ×2 (08:47→23:08)
[2022-12-09] MEDS: POLYETHYLENE GLYCOL 3350, 17 GM/ POWD.PACK PO SCH (08:48)
[2022-12-09] MEDS: PANTOPRAZOLE SODIUM 40 MG/VIAL (PROTONIX) IVP SCH ×2 (08:48→23:06)
[2022-12-09] MEDS: METOPROLOL TARTRATE 50 MG TABLET PO SCH ×2 (08:48→21:00)
[2022-12-09] MEDS: METHYLPREDNISOLONE SOD SUCC 40 MG/ML VIAL IVP SCH (08:48)
[2022-12-09 09:21] LABS: ERYTHROCYTE SEDIMENTATION RATE < 1 MM/HR (0-15)
--- NOTE | 2022-12-09 09:40 | NUR ---
RT NOTES end cpap vent back to Ac. pt tolerated cpap for over 1 hour, pt did not wake up despite being off sedation. Rn notified
--- NOTE | 2022-12-09 13:42 | NUR ---
RT NOTES Dr Hernandez rounding, cpap trials to continue daily
[2022-12-09] MEDS ORDERED: FUROSEMIDE 20 MG/2 ML VIAL IVP ONE (13:45)
[2022-12-09] MEDS: INSULIN REGULAR, HUMAN 100 UNITS/ML, 3 ML VIAL (humuLIN R) SUBCUT PRN (16:55)
[2022-12-09] MEDS: EPOETIN ALFA-EPBX 10,000 UNITS/ML VIAL SUBCUT SCH (18:02)
--- NOTE | 2022-12-09 19:12 | NUR ---
REPORT GIVEN AND CARE ENDORSED TO NIGHTSHIFT RN
[2022-12-09] MEDS: INSULIN GLARGINE 100 UNITS/ML, 10 ML VIAL SUBCUT SCH (23:25)
[2022-12-10] VITALS (33 sets, daily range): BP systolic 77–127; PULSE 70–91; RESP 12–20; TEMP 97.2–98.6; O2SAT 95–100
[2022-12-10] MEDS: IPRATROPIUM/ALBUTEROL SULFATE 3 ML AMPUL.NEB (DUONEB) INH SCH ×4 (01:13→22:44)
[2022-12-10 05:21] LABS: BASOPHILS # (AUTO) 0.1 K/uL (0.0-0.2); BASOPHILS % (AUTO) 0.3 % (0.0-2.0); EOSINOPHILS % (AUTO) 0.1 % (0.0-4.0); HEMATOCRIT 24.2 % (36-54); HEMOGLOBIN 7.8 g/dL (14.0-18.0); LYMPHOCYTES # (AUTO) 0.4 K/uL (1.0-5.5); LYMPHOCYTES % (AUTO) 1.9 % (20.5-51.5); MEAN CORPUSCULAR HEMOGLOBIN 29 pg (27-31); MEAN CORPUSCULAR HGB CONC 32 % (32-36); MEAN CORPUSCULAR VOLUME 89 fL (79.0-98.0); MONOCYTES # (AUTO) 1.4 K/uL (0.0-1.0); NEUTROPHILS # (AUTO) 18.7 K/uL (1.8-7.7); NEUTROPHILS % (AUTO) 90.7 % (40.0-70.0); PLATELET COUNT (AUTO) 141 K/uL (130-430); RED BLOOD CELL COUNT(AUTO) 2.72 MIL/uL (4.2-6.2); RED CELL DISTRIBUTION WIDTH 16.9 % (9.0-15.0); WHITE BLOOD COUNT (AUTO) 20.6 K/uL (4.8-10.8)
[2022-12-10 05:40] LABS: ERYTHROCYTE SEDIMENTATION RATE < 1 MM/HR (0-15)
[2022-12-10 05:44] LABS: ANION GAP 11 (5-15); CALCIUM 7.9 mg/dL (8.4-11.0); CHLORIDE 99 mmol/L (98-107); CREATININE 3.27 mg/dL (0.55-1.30); GLUCOSE 170 mg/dL (74-106); PHOSPHORUS 4.4 mg/dL (2.7-4.5); UREA NITROGEN, BLOOD 87 mg/dL (8-21)
[2022-12-10] MEDS: MEROPENEM 500 MG in NS 50 ML IV SCH ×3 (05:57→21:28)
[2022-12-10] MEDS: METOPROLOL TARTRATE 50 MG TABLET PO SCH ×2 (08:32→21:38)
[2022-12-10] MEDS: PANTOPRAZOLE SODIUM 40 MG/VIAL (PROTONIX) IVP SCH ×2 (08:41→21:38)
[2022-12-10] MEDS: METHYLPREDNISOLONE SOD SUCC 40 MG/ML VIAL IVP SCH (08:41)
[2022-12-10] MEDS: DOCUSATE SODIUM 100 MG CAPSULE PO SCH ×2 (08:42→21:38)
[2022-12-10] MEDS: MONTELUKAST 10 MG TABLET PO SCH (08:42)
[2022-12-10] MEDS: POLYETHYLENE GLYCOL 3350, 17 GM/ POWD.PACK PO SCH (08:42)
[2022-12-10] MEDS: AMIODARONE HCL 200 MG TABLET PO SCH ×2 (08:42→21:38)
[2022-12-10] MEDS: INSULIN REGULAR, HUMAN 100 UNITS/ML, 3 ML VIAL (humuLIN R) SUBCUT PRN ×3 (11:31→21:45)
[2022-12-10] MEDS: EPOETIN ALFA-EPBX 4,000 UNITS/ML VIAL SUBCUT SCH (17:59)
[2022-12-10] MEDS ORDERED: EPOETIN ALFA-EPBX 2,000 UNITS/ML VIAL SUBCUT SCH (18:00)
[2022-12-10] MEDS: INSULIN GLARGINE 100 UNITS/ML, 10 ML VIAL SUBCUT SCH (21:45)
[2022-12-11] VITALS (32 sets, daily range): BP systolic 89–148; PULSE 74–100; RESP 14–27; TEMP 98.2–98.5; O2SAT 94–100
[2022-12-11 04:38] LABS: BASOPHILS # (AUTO) 0.1 K/uL (0.0-0.2); BASOPHILS % (AUTO) 0.6 % (0.0-2.0); EOSINOPHILS # (AUTO) 0.1 K/uL (0.0-0.4); EOSINOPHILS % (AUTO) 0.5 % (0.0-4.0); HEMATOCRIT 25.7 % (36-54); HEMOGLOBIN 8.3 g/dL (14.0-18.0); LYMPHOCYTES # (AUTO) 0.6 K/uL (1.0-5.5); LYMPHOCYTES % (AUTO) 2.2 % (20.5-51.5); MEAN CORPUSCULAR HEMOGLOBIN 29 pg (27-31); MEAN CORPUSCULAR HGB CONC 32 % (32-36); MEAN CORPUSCULAR VOLUME 88 fL (79.0-98.0); MONOCYTES # (AUTO) 1.6 K/uL (0.0-1.0); MONOCYTES % (AUTO) 6.2 % (1.7-9.3); NEUTROPHILS # (AUTO) 22.7 K/uL (1.8-7.7); NEUTROPHILS % (AUTO) 90.5 % (40.0-70.0); PLATELET COUNT (AUTO) 186 K/uL (130-430); RED BLOOD CELL COUNT(AUTO) 2.91 MIL/uL (4.2-6.2); RED CELL DISTRIBUTION WIDTH 17.1 % (9.0-15.0)
[2022-12-11 04:43] LABS: ERYTHROCYTE SEDIMENTATION RATE 4 MM/HR (0-15)
[2022-12-11 04:55] LABS: ALANINE AMINOTRANSFERASE 49 U/L (12-78); ALBUMIN 2.4 g/dL (3.4-4.8); ANION GAP 10 (5-15); ASPARTATE AMINOTRANSFERASE 43 U/L (10-37); CHLORIDE 100 mmol/L (98-107); CREATININE 2.41 mg/dL (0.55-1.30); GLUCOSE 105 mg/dL (74-106); PHOSPHORUS 2.9 mg/dL (2.7-4.5); TOTAL BILIRUBIN 1.1 mg/dL (0.0-1.0); UREA NITROGEN, BLOOD 54 mg/dL (8-21)
[2022-12-11] MEDS: IPRATROPIUM/ALBUTEROL SULFATE 3 ML AMPUL.NEB (DUONEB) INH SCH ×3 (07:29→19:53)
--- NOTE | 2022-12-11 08:00 | NUR ---
RN NOTES STILL ON THE VENT @ 30% FIO2, PT IS AWAKE AND ABLE TO FOLLOW COMMANDS. ON PRECEDEX DRIP @ 0.3 mcg/kg/hr NEPRO FEEDING @ 30 ML/HR GOING THROUGH THE OGT, NGT PATENCY CHECKED.
--- NOTE | 2022-12-11 08:20 | NUR ---
RN NOTES PT PLACED ON CPAP TRIAL.
[2022-12-11] MEDS: PANTOPRAZOLE SODIUM 40 MG/VIAL (PROTONIX) IVP SCH ×2 (08:59→22:14)
[2022-12-11] MEDS: DOCUSATE SODIUM 100 MG CAPSULE PO SCH ×2 (08:59→22:15)
[2022-12-11] MEDS: POLYETHYLENE GLYCOL 3350, 17 GM/ POWD.PACK PO SCH (09:00)
[2022-12-11] MEDS: MONTELUKAST 10 MG TABLET PO SCH (09:00)
[2022-12-11] MEDS: METOPROLOL TARTRATE 50 MG TABLET PO SCH ×2 (09:00→21:00)
[2022-12-11] MEDS: MEROPENEM 500 MG in NS 50 ML IV SCH ×3 (09:01→23:24)
[2022-12-11] MEDS: AMIODARONE HCL 200 MG TABLET PO SCH ×2 (10:02→22:15)
--- NOTE | 2022-12-11 11:00 | NUR ---
RT NOTES RSBI 25, as I'm getting ready to extubate, I noticed that pt has an OG tube, but has bilat. rhino rocket, therefore OG must stay in place. Together with JELLY Espinal, we decided to notify before extubating pt. @[id number] Nava regarding extubation order. Made aware of concerns about keeping OG tube in after extubation, said ok to leave in. Rn made aware, will see if pt can be placed on TPN. She will ask primary
--- NOTE | 2022-12-11 11:25 | NUR ---
RT NOTES Pt was extubated and placed on 30% 6L ventimask. No adverse reactions noted. Will monitor pt.
--- NOTE | 2022-12-11 11:30 | NUR ---
RN NOTES BS - 60 MG/DL WILL FOLLOW HYPOGLYCEMIC PROTOCOL.
[2022-12-11] MEDS: DEXTROSE 50% JECT 50 ML DISP.SYRIN IVP PRN (11:58)
[2022-12-11] MEDS ORDERED: DEXTROSE 50% JECT 50 ML DISP.SYRIN ONE (11:58)
--- NOTE | 2022-12-11 12:00 | NUR ---
RN NOTES 1 AMP DEXTROSE 50% GIVEN PER PROTOCOL. WILL RECHECK BLOOD SUGAR.
--- NOTE | 2022-12-11 12:30 | NUR ---
RT NOTES PT CONT. TO TOLERATE VMK 30%. NO DISTRESS NOTED. SAT 92%. FAMILY AT BEDSIDE
--- NOTE | 2022-12-11 13:00 | NUR ---
RN NOTES BLOOD SUGAR RECHECKED - 126 mg/dl
--- NOTE | 2022-12-11 15:00 | NUR ---
RN NOTES STILL ON 6L VIA VENTIMASK, SPO2 96% PT APPEARS COMFORTABLE.
--- NOTE | 2022-12-11 18:30 | NUR ---
RN NOTES PM CARE DONE, PATIENT TOLERATING 6L VMASK, SPO2 GOOD.
[2022-12-11] MEDS ORDERED: VANCOMYCIN HCL 1,250 MG in NS 250 ML IV ONE (21:00)
[2022-12-11] MEDS: INSULIN GLARGINE 100 UNITS/ML, 10 ML VIAL SUBCUT SCH (22:16)
[2022-12-12] VITALS (27 sets, daily range): BP systolic 93–142; PULSE 69–103; RESP 13–26; TEMP 97–98.4; O2SAT 95–100
[2022-12-12] MEDS: IPRATROPIUM/ALBUTEROL SULFATE 3 ML AMPUL.NEB (DUONEB) INH SCH ×3 (01:49→13:37)
[2022-12-12] MEDS ORDERED: NOREPINEPHRINE 4 MG/4 ML VIAL IV ONE (04:39)
[2022-12-12] MEDS: MEROPENEM 500 MG in NS 50 ML IV SCH (04:50)
[2022-12-12 05:44] LABS: BASOPHILS # (AUTO) 0.1 K/uL (0.0-0.2); BASOPHILS % (AUTO) 0.3 % (0.0-2.0); EOSINOPHILS % (AUTO) 0.2 % (0.0-4.0); HEMATOCRIT 24.7 % (36-54); HEMOGLOBIN 7.9 g/dL (14.0-18.0); LYMPHOCYTES # (AUTO) 0.4 K/uL (1.0-5.5); MEAN CORPUSCULAR HEMOGLOBIN 29 pg (27-31); MEAN CORPUSCULAR HGB CONC 32 % (32-36); MEAN CORPUSCULAR VOLUME 89 fL (79.0-98.0); MONOCYTES # (AUTO) 1.3 K/uL (0.0-1.0); MONOCYTES % (AUTO) 6.3 % (1.7-9.3); NEUTROPHILS # (AUTO) 18.6 K/uL (1.8-7.7); NEUTROPHILS % (AUTO) 91.2 % (40.0-70.0); PLATELET COUNT (AUTO) 147 K/uL (130-430); RED BLOOD CELL COUNT(AUTO) 2.76 MIL/uL (4.2-6.2); RED CELL DISTRIBUTION WIDTH 17.5 % (9.0-15.0); WHITE BLOOD COUNT (AUTO) 20.4 K/uL (4.8-10.8)
[2022-12-12 06:37] LABS: ALANINE AMINOTRANSFERASE 62 U/L (12-78); ALBUMIN 2.3 g/dL (3.4-4.8); ANION GAP 9 (5-15); ASPARTATE AMINOTRANSFERASE 84 U/L (10-37); CALCIUM 7.9 mg/dL (8.4-11.0); CHLORIDE 101 mmol/L (98-107); CREATININE 2.93 mg/dL (0.55-1.30); GLUCOSE 57 mg/dL (74-106); TOTAL BILIRUBIN 1.2 mg/dL (0.0-1.0); UREA NITROGEN, BLOOD 64 mg/dL (8-21)
[2022-12-12] MEDS: PANTOPRAZOLE SODIUM 40 MG/VIAL (PROTONIX) IVP SCH ×2 (08:38→21:43)
[2022-12-12] MEDS: DOCUSATE SODIUM 100 MG CAPSULE PO SCH ×2 (08:38→21:43)
[2022-12-12] MEDS: POLYETHYLENE GLYCOL 3350, 17 GM/ POWD.PACK PO SCH (08:39)
[2022-12-12] MEDS: METOPROLOL TARTRATE 50 MG TABLET PO SCH ×2 (08:39→21:44)
[2022-12-12] MEDS: MONTELUKAST 10 MG TABLET PO SCH (08:39)
[2022-12-12] MEDS: AMIODARONE HCL 200 MG TABLET PO SCH (08:40)
--- NOTE | 2022-12-12 12:30 | NUR ---
R. NARE RHINO ROCKET DISCONTINUED. WILL CONT TO MONITOR PT.
--- NOTE | 2022-12-12 13:37 | NUR ---
RT NOTES Found pt on 6L simple mask, about 40% FIO2. Done by Leah Villanueva, as instructed by Dr Nava. Charting will show 8L 50%, due to the way charting was built, unable to change.
[2022-12-12] MEDS: ALBUMIN HUMAN 25% 50 ML IV SCH ×2 (14:28→19:15)
--- NOTE | 2022-12-12 14:38 | NUR ---
L. NARE RHINO ROCKET DISCONTINUED. WILL CONT TO MONITOR PT. NO BLEEDING NOTED FROM THE R. NARE.
--- NOTE | 2022-12-12 16:29 | NUR ---
ST EVALUATION COMPLETED. ST TX NOT INDICATED AT THIS TIME. PT UNABLE TO DEMONSTRATE SAFE SWALLOW FUNCTION. AUDIBLE CONGESTION NOTED. RECOMMEND CONTINUE NPO WITH ALTERNATIVE MEANS OF NUTRITION.
[2022-12-12] MEDS: EPOETIN ALFA-EPBX 4,000 UNITS/ML VIAL SUBCUT SCH (17:43)
--- NOTE | 2022-12-12 19:10 | NUR ---
PT IS GETTING DIALYSED RIGHT NOW. LEVO DRIP IS RUNNING AT .17MCG/KG/MIN. OGT STILL ON ANG FEEDING TUBE ON. RHINO ROCKETS OUT AND NO BLEEDING NOTED. ENSORSED TO NIGHT NURSE.
[2022-12-12] MEDS ORDERED: VANCOMYCIN HCL 750 MG in NS 250 ML IV ONE (21:00)
[2022-12-12] MEDS: CARVEDILOL 6.25 MG TABLET (COREG) PO SCH (21:43)
[2022-12-12] MEDS: INSULIN GLARGINE 100 UNITS/ML, 10 ML VIAL SUBCUT SCH (21:44)
[2022-12-13] VITALS (28 sets, daily range): BP systolic 87–140; PULSE 80–106; RESP 13–23; TEMP 97–98.7; O2SAT 95–100
[2022-12-13] MEDS ORDERED: ALBUMIN HUMAN 25% 100 ML IV ONE (01:06)
[2022-12-13] MEDS: ALBUMIN HUMAN 25% 50 ML IV SCH (01:07)
[2022-12-13 05:44] LABS: ALANINE AMINOTRANSFERASE 63 U/L (12-78); ANION GAP 8 (5-15); ASPARTATE AMINOTRANSFERASE 112 U/L (10-37); CALCIUM 7.5 mg/dL (8.4-11.0); CHLORIDE 102 mmol/L (98-107); CREATININE 2.28 mg/dL (0.55-1.30); GLUCOSE 136 mg/dL (74-106); TOTAL BILIRUBIN 1.5 mg/dL (0.0-1.0); UREA NITROGEN, BLOOD 45 mg/dL (8-21); VANCOMYCIN,RANDOM 22.9 ug/mL
[2022-12-13] MEDS: IPRATROPIUM/ALBUTEROL SULFATE 3 ML AMPUL.NEB (DUONEB) INH SCH ×5 (05:53→19:00)
--- NOTE | 2022-12-13 07:42 | NUR ---
RT NOTES Pt is on 5L simple mask 35-40%, but charting shows 8L 60% due to the way it was built. Escalated issue to IT, then to [facility] but no resolution.
[2022-12-13] MEDS: METOPROLOL TARTRATE 50 MG TABLET PO SCH ×2 (08:06→21:06)
[2022-12-13] MEDS: CARVEDILOL 6.25 MG TABLET (COREG) PO SCH ×2 (08:07→21:06)
[2022-12-13] MEDS: DOCUSATE SODIUM 100 MG CAPSULE PO SCH ×2 (08:07→21:05)
[2022-12-13] MEDS: POLYETHYLENE GLYCOL 3350, 17 GM/ POWD.PACK PO SCH (08:08)
[2022-12-13] MEDS: MONTELUKAST 10 MG TABLET PO SCH (08:08)
--- NOTE | 2022-12-13 08:09 | NUR ---
Initial notes- Open his eyes, on breathing treatment at this time. On levophed at 0.19 mcg/kg/min. precedex was off since last night as per report. Feeding was off, OJT was pulled out by patient at casino shift manager. Afebrile. No bleeding noted. repositioned for comfort.
[2022-12-13] MEDS: PANTOPRAZOLE SODIUM 40 MG/VIAL (PROTONIX) IVP SCH ×2 (08:26→21:05)
--- NOTE | 2022-12-13 10:48 | NUR ---
Notes- Family at bedside, update plan of care.
--- NOTE | 2022-12-13 13:30 | NUR ---
Notes- Patient is awake, No distress. Family at bedside.
--- NOTE | 2022-12-13 13:33 | NUR ---
RT NOTES Pt remains on 5L O2, not 8, just unable to change on chart.
--- NOTE | 2022-12-13 14:17 | NUR ---
Nutrition F/U RD reviewed pts current EMR including diet hx, physician notes, nursing notes, pertinent labs/meds/procedures, care trends and care activity. Admitting Diagnosis ARF 12/13 Attending MD Progress Notes -- Assessment End-stage renal disease needing dialysis No hydronephrosis noted Severe cardiomyopathy congestive heart failure progressively getting worse urgent dialysis will be done Erasmo catheter to be placed and plan discussed with the patient in detail Once discharge patient will be dialyzed at [facility] 12/13/2022 Aspiration pneumonia Hypervolemia Continue dry UF Subjective Information RD rounded to ICU this afternoon and visited pt at bedside. and daughter present. Pt was using O2 mask -- per EMR review, pt was extubated on 12/11. No EN support infusing. Per EMR review, OGT was pulled out by pt during night supervisor. RD spoke w/ primary RN who reported that pt was having nose bleeding up until yesterday, and she does not want to exacerbate trauma to his nares during NGT insertion at this time -- plan to possibly insert later tonight to resume EN support. Current Diet Order/Nutrition Support Nepro at 30mL/hr (goal), Free Water Flush: 100 Q6H via OGT x6 days & Kenyon BID 5 days % PO intake N/A Last BM 12/11 x 1 NEW Estimated Energy Expenditure (kcals/day) 6749-6120 (22-25 kcal/kg CBW d/t critical illness, risk for overfeeding) Estimated Protein Required (g/day) 65-97 (1.0-1.5 gm/kg IBW 65 kg d/t on dialysis, GERIAT status) Estimated Fluid Required (l/day) Per physician d/t ESRD Problem/Etiology/Signs/Symptoms *Altered nutrition-related labs R/T endocrine and renal dysfunction AEB abnormal BG/BUN/CRE lab values. *Ongoing *Inadequate nutrient intakes R/T lack of preference for hospital foods AEB poor PO intake records *Ongoing *Impaired chewing/swallowing r/t motor causes AEB fatigues easily during meals and requiring texture modification per INBOUND CALL CENTER REPRESENTATIVE eval. *Ongoing *Increased nutrient needs r/t increased demand for nutrients AEB on dialysis. *Ongoing Expected Outcomes/Goals - Tube feeding to meet nutrient needs without GI complications, to meet >80% of estimated nutritional needs, labs trending WNL, normal GI function, and skin integrity/wt maintenance Dietitian Recommendations * Nepro at 30 ml/hr (goal rate), Kenyon BID, Free Water Flush: per physician d/t ESRD via NGT if/when medically appropriate Provides (w/ Kenyon BID): 1456 kcal/day, 63 gm protein/day, and 523 ml free water/day Meets: 96% of lower end of estimated caloric needs and 97% of lower end of estimated protein needs * Consider wound supplements: MVI, 250 mg VIT C; 220mg ZnSO4 x 14 days for wound healing Follow up * Moderate Risk: F/U in 3-5 days
--- NOTE | 2022-12-13 14:24 | NUR ---
Problem/Etiology/Signs/Symptoms *Altered nutrition-related labs R/T endocrine and renal dysfunction AEB abnormal BG/BUN/CRE lab values. *Ongoing Dietitian Recommendations * Nepro at 30 ml/hr (goal rate), Kenyon BID, Free Water Flush: per physician d/t ESRD via NGT if/when medically appropriate Provides (w/ Kenyon BID): 1456 kcal/day, 63 gm protein/day, and 523 ml free water/day Meets: 96% of lower end of estimated caloric needs and 97% of lower end of estimated protein needs * Consider wound supplements: MVI, 250 mg VIT C; 220mg ZnSO4 x 14 days for wound healing LP, MS, RD Please refer to Nutrition F/U for details.
--- NOTE | 2022-12-13 18:00 | NUR ---
Notes/monae Patient's family (son) wants to change monae catheter. Unable to reach Dr. noel at this time. Explain to daughter and that per MD notes, monae need to be change every month. Per son, he notice some blood yesterday. No blood noted today, just mehrdad color for urine output. Will endorse
[2022-12-13] MEDS: INSULIN GLARGINE 100 UNITS/ML, 10 ML VIAL SUBCUT SCH (21:23)
[2022-12-13] MEDS: NOREPINEPHRINE BITARTRATE 16 MG in NS 234 ML IV PRN (23:29)
[2022-12-14] VITALS (43 sets, daily range): BP systolic 69–148; PULSE 75–122; RESP 13–29; TEMP 96.4–98; O2SAT 94–100
[2022-12-14] MEDS: IPRATROPIUM/ALBUTEROL SULFATE 3 ML AMPUL.NEB (DUONEB) INH SCH ×4 (01:06→19:00)
[2022-12-14 05:16] LABS: BASOPHILS # (AUTO) 0.1 K/uL (0.0-0.2); BASOPHILS % (AUTO) 0.6 % (0.0-2.0); EOSINOPHILS % (AUTO) 0.1 % (0.0-4.0); HEMOGLOBIN 7.6 g/dL (14.0-18.0); LYMPHOCYTES # (AUTO) 0.5 K/uL (1.0-5.5); LYMPHOCYTES % (AUTO) 2.8 % (20.5-51.5); MEAN CORPUSCULAR HEMOGLOBIN 29 pg (27-31); MEAN CORPUSCULAR HGB CONC 32 % (32-36); MEAN CORPUSCULAR VOLUME 90 fL (79.0-98.0); MONOCYTES # (AUTO) 0.9 K/uL (0.0-1.0); MONOCYTES % (AUTO) 5.2 % (1.7-9.3); NEUTROPHILS % (AUTO) 91.3 % (40.0-70.0); PLATELET COUNT (AUTO) 141 K/uL (130-430); RED BLOOD CELL COUNT(AUTO) 2.66 MIL/uL (4.2-6.2); RED CELL DISTRIBUTION WIDTH 17.6 % (9.0-15.0); WHITE BLOOD COUNT (AUTO) 16.4 K/uL (4.8-10.8)
[2022-12-14 05:39] LABS: ANION GAP 7 (5-15); CALCIUM 7.9 mg/dL (8.4-11.0); CHLORIDE 100 mmol/L (98-107); CREATININE 1.82 mg/dL (0.55-1.30); UREA NITROGEN, BLOOD 43 mg/dL (8-21); VANCOMYCIN,RANDOM 16.2 ug/mL
[2022-12-14 05:49] LABS: GLUCOSE 33 mg/dL (74-106)
[2022-12-14] MEDS: D5W 1,000 ML IV PRN ×2 (06:14→12:00)
[2022-12-14] MEDS: DEXTROSE 50% JECT 50 ML DISP.SYRIN IVP PRN ×3 (06:15→19:06)
[2022-12-14] MEDS: INSULIN REGULAR, HUMAN 100 UNITS/ML, 3 ML VIAL (humuLIN R) SUBCUT PRN (06:52)
[2022-12-14] MEDS: NOREPINEPHRINE BITARTRATE 16 MG in NS 234 ML IV PRN ×2 (09:00→23:13)
[2022-12-14] MEDS: CARVEDILOL 6.25 MG TABLET (COREG) PO SCH ×2 (09:00→21:00)
[2022-12-14] MEDS: METOPROLOL TARTRATE 50 MG TABLET PO SCH ×2 (09:00→20:31)
[2022-12-14] MEDS: MONTELUKAST 10 MG TABLET PO SCH (09:29)
[2022-12-14] MEDS: POLYETHYLENE GLYCOL 3350, 17 GM/ POWD.PACK PO SCH (09:30)
[2022-12-14] MEDS: DOCUSATE SODIUM 100 MG CAPSULE PO SCH ×2 (09:30→20:31)
[2022-12-14] MEDS: PANTOPRAZOLE SODIUM 40 MG/VIAL (PROTONIX) IVP SCH ×2 (09:31→20:39)
--- NOTE | 2022-12-14 12:05 | NUR ---
0800- patient turned and repositioned. small brown pasty bm cleansed. 0830- Son at bedside and updated on plan of care with all questions answered. Patient has c/o dry mouth, explained that patient is receiving oral care prn and last HD was last night w 2L UF. 0945- patient had hypotension episode of which levo gtt was titrated up- see iv drip flowsheet for details. 1130- patient repositioned and small brown pasty stool cleansed. 1208-blood sugar checked and at 37 w repeat 41- medicated w D50 iv amp and repeat 116. Plan - start D5W at 30cc/hr as per Dr. Barragan orders. family ( and daughter) at bedside and updated on plan of care. Weaning Levo gtt as tolerated. Dr barrios came in about 1030am and informed of holding off on coreg and lopressor for now due to bp instability. Marroquin cath with scant dark urine output.
--- NOTE | 2022-12-14 16:30 | NUR ---
NELSON CATH REMOVED PER DR FULLER ROUNDS TODAY. DISCUSSED FAMILY WISHES TO CULTURE URINE WHILE NELSON IN PLACE, DISCUSSED SCANT UOP LAST NIGHT AND FOR TODAY. DR FULLER APPROVED DISCONTINUATION OF NELSON. PER DR FULLER, BLADDER SCAN PATIENT FOR ANY URINE RETENTION NEEDED. OTHER KEEP NELSON OUT.
--- NOTE | 2022-12-14 18:20 | NUR ---
UNABLE TO ADMINISTER RETOCRIT UNTIL HD HAS ENDED. PLAN TO ENDORSE THIS DOSE REQUIREMENT. PATIENT W LOOSE DARK BROWN STOOLS AFTER MORNING MIRALAX. CLEANSED SEVERAL TIMES. LEVO GTT AT 0.16MCG/KG/MIN. BLOO SUGAR WHILE ON D5W IVF RESULTED IN 94. FAMILY GONE FOR TODAY.
[2022-12-14] MEDS: INSULIN GLARGINE 100 UNITS/ML, 10 ML VIAL SUBCUT SCH (20:32)
[2022-12-14] MEDS: EPOETIN ALFA-EPBX 4,000 UNITS/ML VIAL SUBCUT SCH (20:39)
[2022-12-14] MEDS ORDERED: VANCOMYCIN HCL 1,000 MG in NS 250 ML IV ONE (21:00)
[2022-12-15] VITALS (28 sets, daily range): BP systolic 87–163; PULSE 73–115; RESP 15–49; TEMP 96.4–98.6; O2SAT 94–100
[2022-12-15] MEDS: IPRATROPIUM/ALBUTEROL SULFATE 3 ML AMPUL.NEB (DUONEB) INH SCH ×4 (01:05→19:57)
[2022-12-15 04:54] LABS: BASOPHILS # (AUTO) 0.1 K/uL (0.0-0.2); BASOPHILS % (AUTO) 0.6 % (0.0-2.0); EOSINOPHILS % (AUTO) 0.1 % (0.0-4.0); HEMATOCRIT 23.5 % (36-54); HEMOGLOBIN 7.5 g/dL (14.0-18.0); LYMPHOCYTES # (AUTO) 0.3 K/uL (1.0-5.5); LYMPHOCYTES % (AUTO) 2.2 % (20.5-51.5); MEAN CORPUSCULAR HEMOGLOBIN 29 pg (27-31); MEAN CORPUSCULAR HGB CONC 32 % (32-36); MEAN CORPUSCULAR VOLUME 90 fL (79.0-98.0); MONOCYTES # (AUTO) 0.8 K/uL (0.0-1.0); NEUTROPHILS # (AUTO) 14.2 K/uL (1.8-7.7); NEUTROPHILS % (AUTO) 92.1 % (40.0-70.0); PLATELET COUNT (AUTO) 95 K/uL (130-430); RED BLOOD CELL COUNT(AUTO) 2.62 MIL/uL (4.2-6.2); RED CELL DISTRIBUTION WIDTH 17.8 % (9.0-15.0); WHITE BLOOD COUNT (AUTO) 15.5 K/uL (4.8-10.8)
[2022-12-15 05:16] LABS: ALANINE AMINOTRANSFERASE 48 U/L (12-78); ALBUMIN 2.7 g/dL (3.4-4.8); ANION GAP 11 (5-15); ASPARTATE AMINOTRANSFERASE 50 U/L (10-37); CALCIUM 7.7 mg/dL (8.4-11.0); CHLORIDE 97 mmol/L (98-107); CREATININE 1.65 mg/dL (0.55-1.30); GLUCOSE 185 mg/dL (74-106); PHOSPHORUS 2.8 mg/dL (2.7-4.5); TOTAL BILIRUBIN 1.4 mg/dL (0.0-1.0); UREA NITROGEN, BLOOD 36 mg/dL (8-21)
[2022-12-15] MEDS: INSULIN REGULAR, HUMAN 100 UNITS/ML, 3 ML VIAL (humuLIN R) SUBCUT PRN ×4 (05:39→21:40)
--- NOTE | 2022-12-15 08:00 | NUR ---
RN NOTES AWAKE AND ALERT, NOT IN ACUTE DISTRESS, SPO2 GOOD. A. FIB ON THE MONITOR, DENIES ANY FORM OF DISCOMFORT. STILL ON LEVOPHED DRIP FOR BP SUPPORT.
[2022-12-15] MEDS: PANTOPRAZOLE SODIUM 40 MG/VIAL (PROTONIX) IVP SCH ×2 (08:55→21:36)
[2022-12-15] MEDS: MONTELUKAST 10 MG TABLET PO SCH (08:55)
[2022-12-15] MEDS: CARVEDILOL 6.25 MG TABLET (COREG) PO SCH ×2 (08:56→21:00)
[2022-12-15] MEDS: POLYETHYLENE GLYCOL 3350, 17 GM/ POWD.PACK PO SCH (08:57)
[2022-12-15] MEDS: DOCUSATE SODIUM 100 MG CAPSULE PO SCH ×2 (08:57→21:00)
[2022-12-15] MEDS: METOPROLOL TARTRATE 50 MG TABLET PO SCH ×2 (08:57→21:00)
--- NOTE | 2022-12-15 10:50 | NUR ---
MD ROUNDS DR. FULLER HERE TO SEE PATIENT, WITH ORDERS CARRIED OUT. SPOKE TO FAMILY RE: PLAN OF CARE.
[2022-12-15] MEDS: METOCLOPRAMIDE HCL 10 MG/2 ML VIAL IVP SCH ×3 (12:01→23:19)
--- NOTE | 2022-12-15 14:00 | NUR ---
Wound Evaluation: Wound Consult ordered Dr. Barragan. Thank you Dr. Barragan, for the consult. Patient was awake, alert, oriented, and received in a Mitzy Bed with an Isoflex ALEXANDRE mattress. Patient requires assist to turn in bed. Past medical history: COPD, Renal Failure, Congestive Heart Failure, severe Cardiomyopathy, s/p CABG in 1995, Essential Hypertension, Dyslipidemia, Diabetes Mellitus, Coronary Artery Disease, severe Vasculopathy, s/p trauma of the foot. Recent labs: WBC 15.5, RBC 2.62, hemoglobin 7.5, hematocrit 23.5, platelets 95, chloride 97, BUN 36, creatinine 1.65, glucose 185, calcium 7.7, AST 50, alkaline phosphatase 183.8, serum total protein 5.4, albumin 2.7. Microbiology: Wound culture results positive for Enterococcus faecalis and Acinetobacter lwoffii. MRSA screen results negative. Blood culture results x2 negative. New set of blood culture results x2 in progress. Intrinsic factors that delay wound healing: COPD, Renal Failure, Congestive Heart Failure, severe Cardiomyopathy, Diabetes Mellitus, Coronary Artery Disease, severe Vasculopathy. Skin assessment: 1. Right Lower Extremity/Bernard: Cellulitis, present on admission. Extremity has 3+ pitting edema. No erythema, calor, or weeping observed. Foot is cool to touch, and has 4+ pitting edema. Posterior mid calf area has an area of dark purple discoloration, not over a bony prominence. Recommend: No dressings needed. Continue to monitor sites every shift. Elevate lower extremities above heart as tolerated. Encourage 30 bilateral ankle pumps every hour while awake. Place foam dressing over dark purple discolored area and offload site at all times. Assess site every shift with peel and peak technique. Change dressing daily, and as needed for dressing soiling or dislodgment. 2. Right Mid Lateral Calf: Site has resolved. 3. Right Proximal Lateral Calf: Site has resolved. 4. Right Lateral Calf, posterior and right lateral to site 3: Site has resolved. Recommend: No dressings needed. Continue to monitor sites every shift. 5. Left Lower Extremity: Cellulitis, present on admission. Extremity has 3+ pitting edema. No erythema, calor, or weeping observed. Foot is cool to touch, and has 4+ pitting edema. Recommend: No dressings needed. Continue to monitor sites every shift. Elevate lower extremities above heart as tolerated. Encourage 30 bilateral ankle pumps every hour while awake. 6. Left Posterior Mid Calf: Skin tear. Skin tear has 100% pink tissue. No odor, scant sanguineous drainage. Perimeter of skin tear intact. Small linear area of dark purple discoloration present lateral to skin tear, not over bony prominence. Skin tear measures 2.5 cm x 1.4 cm. Recommend: Cleanse skin tear with normal saline. Gently pat dry apply oil emulsion to skin tear. Cover skin tear and discolored area with with 4 x 4 foam dressings. Perform site care daily, and as needed for dressing soiling or dislodgment. 7. Right Posterior Heel: sDTI. Site has dark discolored tissue. No odor, no drainage. Periwound intact. Site measures 1.8 cm x 1.0 cm. Recommend: Cover site with foam dressing. Offload site at all times. Assess site with peel and peak technique. 8. Left Mid Lateral Forearm: Skin tear. Skin tear site has 10% red tissue, 90% skin colored tissue. No odor, scant serous drainage. Periwound intact. Multiple areas of ecchymosis present on forearm. Skin tear measures 5.5 cm x 3.8 cm Recommend: Cleanse skin tear with normal saline. Gently pat dry. Apply oil emulsion dressing to skin tear. Cover with nonadhesive foam dressing. Wrap with Maicol wrap and secure with tape. Perform site care daily, and as needed for dressing soiling or dislodgment. 9. Right forearm: Multiple dry brown scabs and multiple areas of ecchymosis present on forearm. No odor, no drainage. Recommend: No dressings needed. Continue to monitor site every shift. 10. Left Posterior Shoulder: Skin tear. Skin tear site has 10% pink tissue, 90% skin colored tissue. No odor, scant serous drainage. Periwound intact. Skin tear measures 2.5 cm x 2.9 cm. Recommend: Cleanse skin tear with normal saline. Gently pat dry. Apply oil emulsion dressing to skin tear. Cover with 4x4 foam dressing. Perform site care daily, and as needed for dressing soiling or dislodgment. 11. Sacral-Coccygeal/Buttocks areas: Evolving sDTI. Site has 80% yellow tissue, 10% pink tissue, 10% red tissue. Dark discolored tissue underneath skin present on the right lateral aspect of wound. Site measures 9.0 cm x 13.0 cm. Recommend: Cleanse site with normal saline. Apply Venelex ointment to open wound areas. Apply moisture barrier cream to periwound's. Cover with nonadhesive foam dressings, secure with transparent dressings. Perform wound care daily, and as needed for dressing soiling or dislodgment. 12. Scrotum: Erythema from IAD. No odor, no drainage. Skin is intact. 13. Left Inguinal area: Erythema from IAD. No odor, no drainage. Skin is intact. 14. Right Inguinal area: Erythema from IAD. No odor, no drainage. Skin is intact. Recommend: Cleanse involved areas with mild soap and water. Gently Pat Dry Place, Interdry AG cloth underneath scrotum. Apply antifungal powder to erythematous areas. Dust off excess powder with clean gauze. Pull Interdry Ag cloth up in between bilateral thighs, lifting scrotum up off of bed. Perform site care twice daily. Change Interdry AG cloth every 5 days and as needed for cloth soiling. Also recommend: Encourage and assist patient as needed with reposition every 2 hours with pillow support. Elevate, off-load and float bilateral lower extremities above heart as tolerated. Offload pressure areas with pillows for pressure re-distribution. Perform skin care and monitor skin integrity Q shift. Place patient on a P500 low air loss mattress.
--- NOTE | 2022-12-15 14:45 | NUR ---
RN NOTES PHYSICAL THERAPIST AT BEDSIDE FOR EVAL. AND TREAT.
--- NOTE | 2022-12-15 16:44 | NUR ---
ST EVALUATION COMPLETED. ST TX NOT INDICATED AT THIS TIME. PT UNABLE TO DEMONSTRATE AN EFFECTIVE SWALLOW. RECOMMEND NPO WITH ALTERNATIVE MEANS OF NUTRITION.
--- NOTE | 2022-12-15 17:00 | NUR ---
RN NOTES PM CARE DONE, PT REPOSITIONED.
--- NOTE | 2022-12-15 17:30 | NUR ---
RN NOTES BS - 211 MG/DL. DUE INSULIN COVERAGE GIVEN SQ.
[2022-12-15] MEDS: NYSTATIN 15 GM TOPICAL POWDER TP SCH (21:00)
[2022-12-15] MEDS: MIDODRINE HCL 5 MG TABLET (PROAMATINE) PO SCH (21:36)
[2022-12-15] MEDS: INSULIN GLARGINE 100 UNITS/ML, 10 ML VIAL SUBCUT SCH (21:38)
[2022-12-16] VITALS (29 sets, daily range): BP systolic 98–151; PULSE 76–111; RESP 10–22; TEMP 96.9–98.8; O2SAT 95–100
[2022-12-16] MEDS: IPRATROPIUM/ALBUTEROL SULFATE 3 ML AMPUL.NEB (DUONEB) INH SCH ×4 (01:28→19:41)
[2022-12-16 05:32] LABS: BASOPHILS # (AUTO) 0.1 K/uL (0.0-0.2); BASOPHILS % (AUTO) 0.6 % (0.0-2.0); EOSINOPHILS % (AUTO) 0.2 % (0.0-4.0); LYMPHOCYTES # (AUTO) 0.4 K/uL (1.0-5.5); LYMPHOCYTES % (AUTO) 3.4 % (20.5-51.5); MEAN CORPUSCULAR HEMOGLOBIN 29 pg (27-31); MEAN CORPUSCULAR HGB CONC 32 % (32-36); MEAN CORPUSCULAR VOLUME 89 fL (79.0-98.0); MONOCYTES # (AUTO) 0.8 K/uL (0.0-1.0); NEUTROPHILS # (AUTO) 10.3 K/uL (1.8-7.7); NEUTROPHILS % (AUTO) 88.8 % (40.0-70.0); PLATELET COUNT (AUTO) 77 K/uL (130-430); RED BLOOD CELL COUNT(AUTO) 2.46 MIL/uL (4.2-6.2); RED CELL DISTRIBUTION WIDTH 17.4 % (9.0-15.0); WHITE BLOOD COUNT (AUTO) 11.5 K/uL (4.8-10.8)
[2022-12-16 05:49] LABS: ANION GAP 8 (5-15); CHLORIDE 98 mmol/L (98-107); CREATININE 2.29 mg/dL (0.55-1.30); GLUCOSE 122 mg/dL (74-106); UREA NITROGEN, BLOOD 65 mg/dL (8-21); VANCOMYCIN,RANDOM 20.8 ug/mL
[2022-12-16 05:50] LABS: HEMATOCRIT 21.9 % (36-54)
[2022-12-16] MEDS: METOCLOPRAMIDE HCL 10 MG/2 ML VIAL IVP SCH ×4 (06:00→22:13)
[2022-12-16] MEDS: POLYETHYLENE GLYCOL 3350, 17 GM/ POWD.PACK PO SCH (09:00)
[2022-12-16] MEDS: BALSAM PERU/CASTOR OIL 56.7 GM OINT...G. TP SCH (09:00)
[2022-12-16] MEDS: METOPROLOL TARTRATE 50 MG TABLET PO SCH ×2 (09:00→20:51)
[2022-12-16] MEDS: DOCUSATE SODIUM 100 MG CAPSULE PO SCH ×2 (09:00→20:50)
[2022-12-16] MEDS: CARVEDILOL 6.25 MG TABLET (COREG) PO SCH ×2 (10:04→20:51)
[2022-12-16] MEDS: PANTOPRAZOLE SODIUM 40 MG/VIAL (PROTONIX) IVP SCH ×2 (10:04→22:13)
[2022-12-16] MEDS: MONTELUKAST 10 MG TABLET PO SCH (10:15)
[2022-12-16] MEDS: NYSTATIN 15 GM TOPICAL POWDER TP SCH ×2 (10:15→22:13)
[2022-12-16] MEDS: MIDODRINE HCL 5 MG TABLET (PROAMATINE) PO SCH ×2 (10:29→22:13)
--- NOTE | 2022-12-16 12:06 | NUR ---
>>>PT NOTES<<< HOLD PT TODAY. PER RN, PATIENT IS TIRED AND CURRENTLY RESTING. WILL FOLLOW UP ON 12/18/22.
[2022-12-16] MEDS: EPOETIN ALFA-EPBX 10,000 UNITS/ML VIAL SUBCUT SCH (18:39)
[2022-12-16] MEDS: ACETYLCYSTEINE 20% 4 ML VIAL (RT) INH SCH (19:41)
[2022-12-16] MEDS: INSULIN GLARGINE 100 UNITS/ML, 10 ML VIAL SUBCUT SCH (22:16)
[2022-12-17] VITALS (28 sets, daily range): BP systolic 94–137; PULSE 89–107; RESP 10–22; TEMP 96.5–98.5; O2SAT 94–100
[2022-12-17] MEDS: IPRATROPIUM/ALBUTEROL SULFATE 3 ML AMPUL.NEB (DUONEB) INH SCH ×4 (00:49→19:41)
[2022-12-17] MEDS: METOCLOPRAMIDE HCL 10 MG/2 ML VIAL IVP SCH ×4 (05:36→23:36)
[2022-12-17 05:46] LABS: BASOPHILS # (AUTO) 0.1 K/uL (0.0-0.2); BASOPHILS % (AUTO) 0.8 % (0.0-2.0); EOSINOPHILS % (AUTO) 0.1 % (0.0-4.0); HEMATOCRIT 27.5 % (36-54); LYMPHOCYTES # (AUTO) 0.3 K/uL (1.0-5.5); LYMPHOCYTES % (AUTO) 3.1 % (20.5-51.5); MEAN CORPUSCULAR HEMOGLOBIN 29 pg (27-31); MEAN CORPUSCULAR HGB CONC 33 % (32-36); MEAN CORPUSCULAR VOLUME 88 fL (79.0-98.0); MONOCYTES # (AUTO) 0.6 K/uL (0.0-1.0); MONOCYTES % (AUTO) 6.6 % (1.7-9.3); NEUTROPHILS # (AUTO) 8.7 K/uL (1.8-7.7); NEUTROPHILS % (AUTO) 89.4 % (40.0-70.0); PLATELET COUNT (AUTO) 55 K/uL (130-430); RED BLOOD CELL COUNT(AUTO) 3.11 MIL/uL (4.2-6.2); RED CELL DISTRIBUTION WIDTH 16.5 % (9.0-15.0); WHITE BLOOD COUNT (AUTO) 9.7 K/uL (4.8-10.8)
[2022-12-17 06:03] LABS: ANION GAP 5 (5-15); CALCIUM 7.8 mg/dL (8.4-11.0); CHLORIDE 101 mmol/L (98-107); CREATININE 1.98 mg/dL (0.55-1.30); GLUCOSE 143 mg/dL (74-106); PHOSPHORUS 2.6 mg/dL (2.7-4.5); UREA NITROGEN, BLOOD 48 mg/dL (8-21); VANCOMYCIN,RANDOM 17.3 ug/mL
[2022-12-17] MEDS: ACETYLCYSTEINE 20% 4 ML VIAL (RT) INH SCH ×4 (07:58→19:41)
[2022-12-17] MEDS: CARVEDILOL 6.25 MG TABLET (COREG) PO SCH ×2 (09:00→21:00)
[2022-12-17] MEDS: MONTELUKAST 10 MG TABLET PO SCH (09:00)
[2022-12-17] MEDS: POLYETHYLENE GLYCOL 3350, 17 GM/ POWD.PACK PO SCH (09:00)
[2022-12-17] MEDS: DOCUSATE SODIUM 100 MG CAPSULE PO SCH ×2 (09:00→21:25)
[2022-12-17] MEDS: PANTOPRAZOLE SODIUM 40 MG/VIAL (PROTONIX) IVP SCH ×2 (09:00→21:24)
[2022-12-17] MEDS: METOPROLOL TARTRATE 50 MG TABLET PO SCH ×2 (09:00→21:00)
[2022-12-17] MEDS: MIDODRINE HCL 5 MG TABLET (PROAMATINE) PO SCH ×2 (09:01→21:25)
[2022-12-17] MEDS ORDERED: NA PHOS 15 MM in NS 250 ML IV ONE (11:45)
[2022-12-17] MEDS: BALSAM PERU/CASTOR OIL 56.7 GM OINT...G. TP SCH (12:38)
[2022-12-17] MEDS: EPOETIN ALFA-EPBX 10,000 UNITS/ML VIAL SUBCUT SCH (17:15)
[2022-12-17] MEDS: NYSTATIN 15 GM TOPICAL POWDER TP SCH ×2 (17:25→21:22)
[2022-12-17] MEDS: INSULIN GLARGINE 100 UNITS/ML, 10 ML VIAL SUBCUT SCH (21:04)
[2022-12-18] VITALS (25 sets, daily range): BP systolic 87–132; PULSE 79–112; RESP 12–22; TEMP 97.7–98.6; O2SAT 94–99
[2022-12-18] MEDS: IPRATROPIUM/ALBUTEROL SULFATE 3 ML AMPUL.NEB (DUONEB) INH SCH ×4 (00:08→19:09)
[2022-12-18 05:10] LABS: BASOPHILS # (AUTO) 0.1 K/uL (0.0-0.2); BASOPHILS % (AUTO) 0.7 % (0.0-2.0); EOSINOPHILS % (AUTO) 0.3 % (0.0-4.0); HEMATOCRIT 26.7 % (36-54); HEMOGLOBIN 8.9 g/dL (14.0-18.0); LYMPHOCYTES # (AUTO) 0.4 K/uL (1.0-5.5); MEAN CORPUSCULAR HEMOGLOBIN 30 pg (27-31); MEAN CORPUSCULAR HGB CONC 33 % (32-36); MEAN CORPUSCULAR VOLUME 89 fL (79.0-98.0); MONOCYTES # (AUTO) 0.9 K/uL (0.0-1.0); NEUTROPHILS # (AUTO) 7.8 K/uL (1.8-7.7); PLATELET COUNT (AUTO) 62 K/uL (130-430); RED BLOOD CELL COUNT(AUTO) 3.01 MIL/uL (4.2-6.2); RED CELL DISTRIBUTION WIDTH 17.2 % (9.0-15.0); WHITE BLOOD COUNT (AUTO) 9.1 K/uL (4.8-10.8)
[2022-12-18 05:20] LABS: ERYTHROCYTE SEDIMENTATION RATE 5 MM/HR (0-15)
[2022-12-18 05:22] LABS: ALANINE AMINOTRANSFERASE 29 U/L (12-78); ALBUMIN 2.4 g/dL (3.4-4.8); ANION GAP 6 (5-15); ASPARTATE AMINOTRANSFERASE 24 U/L (10-37); CHLORIDE 99 mmol/L (98-107); CREATININE 2.54 mg/dL (0.55-1.30); GLUCOSE 117 mg/dL (74-106); PHOSPHORUS 3.7 mg/dL (2.7-4.5); TOTAL BILIRUBIN 0.9 mg/dL (0.0-1.0); UREA NITROGEN, BLOOD 58 mg/dL (8-21)
[2022-12-18] MEDS: METOCLOPRAMIDE HCL 10 MG/2 ML VIAL IVP SCH ×3 (06:51→17:06)
--- NOTE | 2022-12-18 07:30 | NUR ---
Received report from nightshift RN Patient in bed AOx3, calm and comfortable. Pt reports no pain or discomfort at the moment. Pt on 3L O2 via oximizer, D5NS @ TKO (10 mL/Hr) via FAVIOLA PICC line, and Nepro at 30 mL/Hr (goal) via L NG tube. Patient VS within normal ranges.
[2022-12-18] MEDS: ACETYLCYSTEINE 20% 4 ML VIAL (RT) INH SCH ×3 (08:08→19:10)
[2022-12-18] MEDS: METOPROLOL TARTRATE 50 MG TABLET PO SCH (08:16)
[2022-12-18] MEDS: CARVEDILOL 6.25 MG TABLET (COREG) PO SCH (08:17)
[2022-12-18] MEDS: DOCUSATE SODIUM 100 MG CAPSULE PO SCH (08:17)
[2022-12-18] MEDS: PANTOPRAZOLE SODIUM 40 MG/VIAL (PROTONIX) IVP SCH (08:17)
[2022-12-18] MEDS: MIDODRINE HCL 5 MG TABLET (PROAMATINE) PO SCH (08:18)
[2022-12-18] MEDS: MONTELUKAST 10 MG TABLET PO SCH (08:18)
[2022-12-18] MEDS: POLYETHYLENE GLYCOL 3350, 17 GM/ POWD.PACK PO SCH (08:18)
[2022-12-18] MEDS: NYSTATIN 15 GM TOPICAL POWDER TP SCH (09:21)
[2022-12-18] MEDS: BALSAM PERU/CASTOR OIL 56.7 GM OINT...G. TP SCH (09:21)
[2022-12-18] MEDS: DEXTROSE 50% JECT 50 ML DISP.SYRIN IVP PRN (11:32)
--- NOTE | 2022-12-18 11:43 | NUR ---
accucheck of 54 at 11:20, D50 given and blood sugar rechecked at 11:35. 11:35 Blood sugar of 143 15 minutes post D50.
[2022-12-18] MEDS ORDERED: ALBUMIN HUMAN 25% 100 ML IV ONE (12:45)
--- NOTE | 2022-12-18 15:01 | NUR ---
PATIENT UNAVAILABLE FOR PT TREATMENT TODAY D/T CURRENTLY ON HD. WILL TRY AGAIN TOMORROW.
[2022-12-18] MEDS: ALBUMIN HUMAN 25% 100 ML IV SCH ×2 (15:31→15:35)
--- NOTE | 2022-12-18 16:08 | NUR ---
ST EVALUATION ATTEMPTED. PT HAVING DIALYSIS AND IS TOO TIRED TO PARTICIPATE. WILL ATTEMPT TO COMPLETE EVALUATION TOMORROW.
--- NOTE | 2022-12-18 16:30 | NUR ---
SPOKE TO SALESPERSON FURNITURE JACQUELINE WHOM GAVE UPDATE THAT PATIENT IS GOING TO [facility] ROOM NUMBER 208B. DR FULLER WILL CONTINUE TO BE PATIENT'S PCP. [facility] IS THE TRANSPORT SERVICE. TIE KNITTER HELPER IS SCHEDULED FOR 8PM.
--- NOTE | 2022-12-18 16:48 | NUR ---
Received call from Val ([facility] [employer]) regarding available bed at [place] for patient transfer. Discussed with dependency case manager about whether family knew about the transfer plan, family and dependency case manager both unaware of patient plan to transfer to [place]. Informed family of bed availability at [facility]. Current goal is to determine if patient will be going to [place] tonight or downgrading to Med-surg/Tele.
--- NOTE | 2022-12-18 17:43 | NUR ---
Val from [facility] spoke to pt's son, Heriberto. Patient's family in agreement to transfer patient to [facility]. Plan is for Patient to be transferred to [facility] via [facility] at 20:00. Patient will be in bed 208 B. Report given over the phone to Marely REAVES at [facility] [phone]) at 17:35.
--- NOTE | 2022-12-18 19:07 | NUR ---
Report given and care endorsed to mine shifter RN.
--- NOTE | 2022-12-18 19:45 | NUR ---
RN Notes [facility] ambulance transport service got in the unit at 1930. Gave report to Abdiel from [facility]. Patient will go to [facility], room 208 B. Patient's vital signs blood pressure 106/58, heart rate 92, respirations 14, and SPO2 98% on oxymizer 3L.
== END 2022-12-18 23:36 | DRG 870 ==
LOC: SED 18:59 → STU 22:27 → SIC 11-29 17:41
PROVIDERS: ADMIT Specialist; ATTEND Specialist
PROC: 02HV33Z Insertion of Infusion Device into Superior Vena Cava, Percutaneous Approach (ICD-10-PCS; 2022-11-24)
PROC: B548ZZA Ultrasonography of Superior Vena Cava, Guidance (ICD-10-PCS; 2022-11-24)
PROC: 5A1D70Z Performance of Urinary Filtration, Intermittent, Less than 6 Hours Per Day (ICD-10-PCS; 2022-11-24)
PROC: 5A1D70Z Performance of Urinary Filtration, Intermittent, Less than 6 Hours Per Day (ICD-10-PCS; 2022-11-26)
PROC: 5A1D70Z Performance of Urinary Filtration, Intermittent, Less than 6 Hours Per Day (ICD-10-PCS; 2022-11-27)
PROC: 5A1955Z Respiratory Ventilation, Greater than 96 Consecutive Hours (ICD-10-PCS; principal; 2022-11-29)
PROC: 30233R1 Transfusion of Nonautologous Platelets into Peripheral Vein, Percutaneous Approach (ICD-10-PCS; 2022-11-29)
PROC: 5A1D70Z Performance of Urinary Filtration, Intermittent, Less than 6 Hours Per Day (ICD-10-PCS; 2022-11-29)
PROC: 0BH17EZ Insertion of Endotracheal Airway into Trachea, Via Natural or Artificial Opening (ICD-10-PCS; 2022-11-29)
PROC: 30233K1 Transfusion of Nonautologous Frozen Plasma into Peripheral Vein, Percutaneous Approach (ICD-10-PCS; 2022-12-01)
PROC: 30233N1 Transfusion of Nonautologous Red Blood Cells into Peripheral Vein, Percutaneous Approach (ICD-10-PCS; 2022-12-01)
PROC: 5A1D70Z Performance of Urinary Filtration, Intermittent, Less than 6 Hours Per Day (ICD-10-PCS; 2022-12-01)
PROC: 5A1D70Z Performance of Urinary Filtration, Intermittent, Less than 6 Hours Per Day (ICD-10-PCS; 2022-12-02)
PROC: 02HV33Z Insertion of Infusion Device into Superior Vena Cava, Percutaneous Approach (ICD-10-PCS; 2022-12-02)
PROC: B548ZZA Ultrasonography of Superior Vena Cava, Guidance (ICD-10-PCS; 2022-12-02)
PROC: 5A1D70Z Performance of Urinary Filtration, Intermittent, Less than 6 Hours Per Day (ICD-10-PCS; 2022-12-04)
PROC: 02PYX3Z Removal of Infusion Device from Great Vessel, External Approach (ICD-10-PCS; 2022-12-06)
PROC: 02HV33Z Insertion of Infusion Device into Superior Vena Cava, Percutaneous Approach (ICD-10-PCS; 2022-12-06)
PROC: 5A1D70Z Performance of Urinary Filtration, Intermittent, Less than 6 Hours Per Day (ICD-10-PCS; 2022-12-06)
PROC: 5A1D70Z Performance of Urinary Filtration, Intermittent, Less than 6 Hours Per Day (ICD-10-PCS; 2022-12-08)
PROC: 5A1D70Z Performance of Urinary Filtration, Intermittent, Less than 6 Hours Per Day (ICD-10-PCS; 2022-12-11)
PROC: 5A1D70Z Performance of Urinary Filtration, Intermittent, Less than 6 Hours Per Day (ICD-10-PCS; 2022-12-12)
PROC: 5A1D70Z Performance of Urinary Filtration, Intermittent, Less than 6 Hours Per Day (ICD-10-PCS; 2022-12-13)
PROC: 5A1D70Z Performance of Urinary Filtration, Intermittent, Less than 6 Hours Per Day (ICD-10-PCS; 2022-12-14)
PROC: 5A1D70Z Performance of Urinary Filtration, Intermittent, Less than 6 Hours Per Day (ICD-10-PCS; 2022-12-15)
PROC: 5A1D70Z Performance of Urinary Filtration, Intermittent, Less than 6 Hours Per Day (ICD-10-PCS; 2022-12-16)
PROC: 5A1D70Z Performance of Urinary Filtration, Intermittent, Less than 6 Hours Per Day (ICD-10-PCS; 2022-12-18)
DX: A41.9 Sepsis, unspecified organism (principal); R65.21 Severe sepsis with septic shock; I21.A1 Myocardial infarction type 2; J96.21 Acute and chronic respiratory failure with hypoxia; D65 Disseminated intravascular coagulation [defibrination syndrome]; I46.9 Cardiac arrest, cause unspecified; E43 Unspecified severe protein-calorie malnutrition; N18.6 End stage renal disease; R57.8 Other shock; J69.0 Pneumonitis due to inhalation of food and vomit; N17.9 Acute kidney failure, unspecified; E87.1 Hypo-osmolality and hyponatremia; J44.1 Chronic obstructive pulmonary disease with (acute) exacerbation; Z99.11 Dependence on respirator [ventilator] status; I42.9 Cardiomyopathy, unspecified; J44.0 Chronic obstructive pulmonary disease with (acute) lower respiratory infection; G93.1 Anoxic brain damage, not elsewhere classified; T82.41XA Breakdown (mechanical) of vascular dialysis catheter, initial encounter; I13.2 Hypertensive heart and chronic kidney disease with heart failure and with stage 5 chronic kidney disease, or end stage renal disease; L97.929 Non-pressure chronic ulcer of unspecified part of left lower leg with unspecified severity; L97.919 Non-pressure chronic ulcer of unspecified part of right lower leg with unspecified severity; L03.119 Cellulitis of unspecified part of limb; R13.10 Dysphagia, unspecified; R04.0 Epistaxis; I25.10 Atherosclerotic heart disease of native coronary artery without angina pectoris; I48.91 Unspecified atrial fibrillation; E88.09 Other disorders of plasma-protein metabolism, not elsewhere classified; E87.5 Hyperkalemia; K57.90 Diverticulosis of intestine, part unspecified, without perforation or abscess without bleeding; D63.1 Anemia in chronic kidney disease; E83.39 Other disorders of phosphorus metabolism; E78.5 Hyperlipidemia, unspecified; E83.41 Hypermagnesemia; E83.51 Hypocalcemia; E83.52 Hypercalcemia; D50.0 Iron deficiency anemia secondary to blood loss (chronic); E11.65 Type 2 diabetes mellitus with hyperglycemia; Y83.8 Other surgical procedures as the cause of abnormal reaction of the patient, or of later complication, without mention of misadventure at the time of the procedure; I50.9 Heart failure, unspecified; E11.22 Type 2 diabetes mellitus with diabetic chronic kidney disease; E66.9 Obesity, unspecified; K74.60 Unspecified cirrhosis of liver; K27.9 Peptic ulcer, site unspecified, unspecified as acute or chronic, without hemorrhage or perforation; Z99.2 Dependence on renal dialysis; Z98.84 Bariatric surgery status; Z95.1 Presence of aortocoronary bypass graft; Z86.74 Personal history of sudden cardiac arrest; Y92.89 Other specified places as the place of occurrence of the external cause; Z68.22 Body mass index [BMI] 22.0-22.9, adult
CPT/HCPCS: 36415; 36600; 71045; 76376; 76700-TC; 80048; 80053; 80074; 80076; 80202; 81000; 82272; 82330; 82550; 82803; 83735; 83880; 83970; 84100; 84484; 85018; 85025; 85379; 85384; 85610-TC; 85651-TC; 85730-TC; 86140; 86480; 86886; 86900; 86901; 86920; 87040; 87070-TC; 87081; 87186-TC; 90937; 92610-GN; 93005; 93306; 93970; 94002; 94003; 94640; 94760; 97110-GP; 97163-GP; 97530-GP; 99291; C1751; C9113; G0378; J0456; J1030; J1200; J1644; J1815; J1940; J2001; J2185; J2405; J2543; J2597; J2765; J3010; J3370; J3490; J7030; J7050; J7060; J7608; P9021; P9034; P9046; P9059; Q5106